=== PATIENT | female | born 1945 | race Caucasian/White ===

== ENCOUNTER 2023-05-29 06:41 | Outpatient (OUT) | payer MEDICARE, SELFPAY ==
[2023-05-29 06:59] LABS: Bilirubin Urine NEGATIVE (NEGATIVE); Blood Urine NEGATIVE (NEGATIVE); Clarity Urine CLEAR (CLEAR); Color Urine LT. YELLOW (YELLOW); Glucose Urine UA NEGATIVE (NEGATIVE); Ketones Urine NEGATIVE (NEGATIVE); Leukocyte Esterase Urine NEGATIVE (NEGATIVE); Nitrite Urine NEGATIVE (NEGATIVE); Protein Urine NEGATIVE (NEG/TRACE); Specific Gravity Urine <=1.005 (1.005-1.025); Urobilinogen Urine 0.2 EU/dL (0.2-1.0)
[2023-05-29 07:01] LABS: Basophils Absolute Auto 0.1 10^3/uL (0.0-0.1); Basophils Percent Auto 0.8 % (0.2-2.0); Eosinophils Absolute Auto 0.2 10^3/uL (0.0-0.7); Hematocrit 39.4 % (36.0-48.0); Hemoglobin 13.2 g/dL (12.0-16.0); Immature Granulocytes Abs Auto 0.01 10^3/uL (0.00-0.03); Immature Granulocytes Pct Auto 0.2 % (0.0-0.5); Lymphocytes Absolute Auto 1.8 10^3/uL (1.2-3.8); Mean Corpuscular HGB Conc 33.5 g/dL (29.9-35.2); Mean Corpuscular Hemoglobin 31.8 pg (26.7-34.0); Mean Corpuscular Volume 94.9 fL (81.0-99.0); Mean Platelet Volume 10.6 fL (9.5-13.5); Monocytes Absolute Auto 0.7 10^3/uL (0.3-0.8); Monocytes Percent Auto 9.8 % (1.7-12.0); Neutrophils Absolute Auto 3.9 10^3/uL (1.4-6.5); Neutrophils Percent Auto 59.2 % (43.0-75.0); Platelet Count 254 10^3/uL (150-450); Red Blood Count 4.15 10^6/uL (4.20-5.40); Red Cell Distribution Width 12.7 % (11.0-15.0); White Blood Count 6.6 10^3/uL (4.0-11.0)
[2023-05-29 07:06] LABS: Bacteria Urine NONE SEEN #/HPF (NONE SEEN); Crystals Seen? None Seen #/HPF (None Seen); Mucus Urine NONE SEEN (NONE SEEN); RBC Urine NONE SEEN #/HPF (0-2); Squamous Epithelial Cell Urine RARE #/LPF (NONE/RARE); WBC Urine NONE SEEN #/HPF (NONE SEEN)
[2023-05-29 07:07] LABS: Cast Seen? NONE SEEN #/LPF (NONE SEEN)
[2023-05-29 07:35] LABS: Alanine Aminotransferase 26 U/L (14-59); Albumin Globulin Ratio 1.1; Albumin Level 3.8 g/dL (3.4-5.0); Alkaline Phosphatase 76 U/L (46-116); Anion Gap 11.3; Aspartate Amino Transferase 23 U/L (15-37); BUN Creatinine Ratio 21.3; Bilirubin Total 1.2 mg/dL (0.2-1.0); Calcium 8.9 mg/dL (8.5-10.1); Carbon Dioxide 26.2 mmol/L (21.0-32.0); Chloride 97 mmol/L (98-107); Chol HDL Ratio 3.1; Cholesterol 197 mg/dL (<=200); Estimated GFR (African America >60 (>=60); Estimated GFR (Non-African Ame >60 (>=60); Globulin 3.6 g/dL; Glucose 92 mg/dL (74-106); HDL Cholesterol 63 mg/dL (40-60); Potassium 3.5 mmol/L (3.5-5.1); Sodium 131 mmol/L (136-145); Total Protein 7.4 g/dL (6.4-8.2); Triglycerides 49 mg/dL (<=150); VLDL CHOLESTEROL 9.8 mg/dL
== END 2023-05-29 06:42 | disposition home or self-care (01) ==
LOC: LAB 06:41
PROVIDERS: PCP Nurse Practitioner; Visit Provider Nurse Practitioner
DX: E78.5 Hyperlipidemia, unspecified (principal); R69 Illness, unspecified; M81.0 Age-related osteoporosis without current pathological fracture; N39.46 Mixed incontinence
CPT/HCPCS: 36415; 80053; 80061; 81001; 82306; 85025

== ENCOUNTER 2023-08-18 10:12 | Emergency (ER) | payer MEDICARE, SELFPAY ==
--- NOTE | 2023-08-18 10:13 | ECG_ITS ---
[facility] Test Date: 2023-08-18 Pat Name: Soni Bhandari Department: Room: - Gender: Female [employer]: : 1945 Requested By: CRUZ ANDERSON Order Number: [id number] Reading MD: YAZMIN SOUSA Measurements Intervals [place] Rate: 77 P: 73 WA: 132 QRS: 86 QRSD: 126 T: 46 QT: 390 QTc: 421 Interpretive Statements 1100 Sinus rhythm 2450 Right bundle branch block 9150 abnormal ECG No previous ECG available for comparison Electronically Signed On 08-18-2023 22:23:58 EST by YAZMIN SOUSA
[2023-08-18 10:18] VITALS: BP 143/78
[2023-08-18 10:20] VITALS: BP 145/78; PULSE 75; RESP 18; TEMP 36.7; O2SAT 99; BMI 20.5
[2023-08-18 10:30] VITALS: PULSE 77; RESP 21; O2SAT 98
--- NOTE | 2023-08-18 10:39 | XR_ITS ---
The [address] [address] Patient Name: SANDY GIBBS MRN: [id number] date: 1945 Sex: F Assigned Patient Location: ED.MAIN Current Patient Location: ED.MAIN Accession/Order Number: [id number] Exam Date: 08/18/2023 10:35 Report Date: 08/18/2023 10:53 At the request of: ELYSE LAO Procedure: XR chest 1V EXAM: XR chest 1V HISTORY: CP COMPARISON: None. TECHNIQUE: ap port FINDINGS: LUNGS: No significant pulmonary parenchymal abnormalities. VASCULATURE: No increased pulmonary vasculature. PLEURA: No pneumothorax, effusion, or pleural thickening. CARDIAC: No cardiomegaly or cardiac silhouette abnormality. MEDIASTINUM: No visible mass or adenopathy. aortic calcifications BONES: No fracture or visible bone lesion. OTHER: Negative. XR/XR chest 1V IMPRESSION: No acute cardiopulmonary process Electronically authenticated by: SHY FAJARDO Date: 08/18/2023 10:53
[2023-08-18 10:43] LABS: Basophils Percent Auto 0.6 % (0.2-2.0); Eosinophils Absolute Auto 0.1 10^3/uL (0.0-0.7); Eosinophils Percent Auto 0.7 % (0.9-7.0); Hematocrit 41.6 % (36.0-48.0); Hemoglobin 13.8 g/dL (12.0-16.0); Immature Granulocytes Abs Auto 0.01 10^3/uL (0.00-0.03); Immature Granulocytes Pct Auto 0.1 % (0.0-0.5); Lymphocytes Absolute Auto 1.7 10^3/uL (1.2-3.8); Lymphocytes Percent Auto 24.4 % (20.5-60.0); Mean Corpuscular HGB Conc 33.2 g/dL (29.9-35.2); Mean Corpuscular Hemoglobin 31.7 pg (26.7-34.0); Mean Corpuscular Volume 95.4 fL (81.0-99.0); Mean Platelet Volume 10.1 fL (9.5-13.5); Monocytes Absolute Auto 1.1 10^3/uL (0.3-0.8); Monocytes Percent Auto 16.4 % (1.7-12.0); Neutrophils Absolute Auto 3.9 10^3/uL (1.4-6.5); Neutrophils Percent Auto 57.8 % (43.0-75.0); Platelet Count 248 10^3/uL (150-450); Red Blood Count 4.36 10^6/uL (4.20-5.40); Red Cell Distribution Width 12.8 % (11.0-15.0); White Blood Count 6.8 10^3/uL (4.0-11.0)
--- NOTE | 2023-08-18 10:44 | ED.CHESTPAI1 ---
HPI - Chest Pain General Chief Complaint: Chest Pain Stated Complaint: CHEST PRESSURE Time Seen by Provider: 08/18/23 10:13 Source: patient Mode of arrival: walk-in Limitations: no limitations History of Present Illness HPI narrative: 78-year-old female presents for chest pressure. She's had it continuously for about forty-eight hours. It waxes and wanes. No fever cough shortness breath or any trauma or unusual activity. She was seen by her PCP today sent her here to be evaluated. It doesn't seem to radiate. Related Data Home Medications Medication Instructions Recorded Confirmed atorvastatin 40 mg tablet 40 mg PO Q24H 08/18/23 08/18/23 oxybutynin chloride 15 mg 15 mg PO Q24H 08/18/23 08/18/23 tablet,extended release 24 hr Allergies Allergy/AdvReac Type Severity Reaction Status Date / Time No Known Drug Allergies Allergy Verified 08/18/23 10:19 Review of Systems ROS Narrative A ten point review of systems is negative except as noted above. Exam Narrative Exam Narrative: Nurses note and vital signs reviewed and patient is not hypoxic. General: The patient appears well and in no apparent distress. Patient is resting comfortably on cart. Skin: Warm, dry, no pallor noted. There is no rash noted. Head: Normocephalic, atraumatic Eye: Normal conjunctiva, no drainage Ears, Nose, Mouth, and Throat: oral mucosa is moist. Nares patent. Cardiovascular: Regular Rate and Rhythm Respiratory: Patient is in no distress, no accessory muscle use, lungs are clear to auscultation, no wheezing, rales or rhonchi Back: non-tender GI: soft and nontender Musculoskeletal: The patient has no evidence of calf tenderness, no pitting edema, symmetrical pulses noted bilaterally Neurological: A&O, normal speech Psychiatric: Cooperative Constitutional Vital Signs, click to edit/add: Last Vital Signs Temp 98.0 F 08/18/23 10:20 Pulse 75 08/18/23 11:02 Resp 19 08/18/23 11:02 BP 113/65 08/18/23 11:02 Pulse Ox 98 08/18/23 10:30 Course Vital Signs Vital signs: Vital Signs Blood Pressure 143/78 H 08/18/23 10:18 Temperature 98.0 F 08/18/23 10:20 Pulse Rate 75 08/18/23 11:02 Respiratory Rate 19 01/09/24 11:02 Blood Pressure 113/65 08/18/23 11:02 Pulse Oximetry 98 08/18/23 10:30 MDM - Chest Pain MDM Narrative Medical decision making narrative: The patient's workup is negative here. No evidence of acute coronary syndrome. I've no clinical suspicion of pulmonary embolism. She'll be released and will follow-up with her PCP. Treatment diagnosis and follow-up were discussed with the patient. Differential Diagnosis Differential diagnosis: Likely pneumothorax, stable angina, unstable angina pectoris, atypical chest pain, st elevation myocardial infarction, costochondritis and chest pain Lab Data Attestation: I reviewed the patient's lab results. Labs: Lab Results 08/18/23 Range/Units 10:27 WBC 6.8 (4.0-11.0) 10^3/uL RBC 4.36 (4.20-5.40) 10^6/uL Hgb 13.8 (12.0-16.0) g/dL Hct 41.6 (36.0-48.0) % MCV 95.4 (81.0-99.0) fL MCH 31.7 (26.7-34.0) pg MCHC 33.2 (29.9-35.2) g/dL RDW 12.8 (11.0-15.0) % Plt Count 248 (150-450) 10^3/uL MPV 10.1 (9.5-13.5) fL Neut % (Auto) 57.8 (43.0-75.0) % Lymph % (Auto) 24.4 (20.5-60.0) % Boundary % (Auto) 16.4 H (1.7-12.0) % Eos % (Auto) 0.7 L (0.9-7.0) % Baso % (Auto) 0.6 (0.2-2.0) % Neut # (Auto) 3.9 (1.4-6.5) 10^3/uL Lymph # (Auto) 1.7 (1.2-3.8) 10^3/uL Boundary # (Auto) 1.1 H (0.3-0.8) 10^3/uL Eos # (Auto) 0.1 (0.0-0.7) 10^3/uL Baso # (Auto) 0.0 (0.0-0.1) 10^3/uL Abs Immat Gran (auto) 0.01 (0.00-0.03) 10^3/uL Imm/Tot Granulo (auto) 0.1 (0.0-0.5) % Sodium 134 L (136-145) mmol/L Potassium 3.4 L (3.5-5.1) mmol/L Chloride 101 (98-107) mmol/L Carbon Dioxide 27.4 (21.0-32.0) mmol/L Anion Gap 9.0 BUN 11.0 (7.0-18.0) mg/dL Creatinine 0.75 (0.55-1.02) mg/dL Est GFR ( Amer) >60 (>=60) Est GFR (Non-Af Amer) >60 (>=60) BUN/Creatinine Ratio 14.7 Glucose 99 (74-106) mg/dL Calcium 9.5 (8.5-10.1) mg/dL Troponin I High Sens 5.9 (4.0-51.3) pg/mL Imaging Data Chest x-ray: Radiologist's impression: Procedure: XR chest 1V EXAM: XR chest 1V HISTORY: CP COMPARISON: None. TECHNIQUE: ap port FINDINGS: LUNGS: No significant pulmonary parenchymal abnormalities. VASCULATURE: No increased pulmonary vasculature. PLEURA: No pneumothorax, effusion, or pleural thickening. CARDIAC: No cardiomegaly or cardiac silhouette abnormality. MEDIASTINUM: No visible mass or adenopathy. aortic calcifications BONES: No fracture or visible bone lesion. OTHER: Negative. IMPRESSION: No acute cardiopulmonary process Electronically authenticated by: SHY FAJARDO Date: 08/18/2023 10:53 ECG Data Attestation: I personally reviewed and interpreted this ECG as follows: (EKG on my interpretation shows sinus rhythm with right bundle branch block) Heart Score History: Moderately Suspicious ECG: Normal Age: >65 years Risk Factors: 1 or 2 Risk Factors Troponin: <Normal Limit Total Heart Score Recommendations & Risks:: 4 Discharge Plan Discharge Chief Complaint: Chest Pain Clinical Impression: Chest pain Patient Disposition: Home, Self-Care Time of Disposition Decision: 11:20 Condition: Good Mode of Transportation: Private Vehicle Prescriptions / Home Meds: No Action atorvastatin 40 mg tablet 40 mg PO Q24H oxybutynin chloride 15 mg tablet extended release 24hr 15 mg PO Q24H Instructions: Chest Pain (ED) Stand Alone Forms: Portal Instructions Referrals: Karol Gurrola NP [Primary Care Provider] - 1 week
--- OUTSIDE RECORDS SUMMARY | 2023-08-18 10:50 | XMS_ITS | CCD ---
Author Name Unknown Address [address] [place] [address] Organization [facility] Care Team Providers Care Geospatial Engineer Name Role Phone JAYLIN Rahman Attending Provider [phone] Lorraine Rahman Attending Unavailable Lorraine Rahman Admitting Unavailable Lorraine Rahman Unavailable AICHHOLZ, OVERHEAD LINE WORKER CRUZ Attending Unavailable AICHHOLZ, OVERHEAD LINE WORKER CRUZ Consulting Unavailable AICHHOLZ, OVERHEAD LINE WORKER CRUZ Primary Care Unavailable AICHHOLZ, OVERHEAD LINE WORKER CRUZ Admitting Unavailable TIMMIS, DR GARCIA Admitting Unavailable TIMMIS, DR GARCIA Attending Unavailable TIMMIS, DR GARCIA Consulting Unavailable AICHHOLZ, OVERHEAD LINE WORKER CRUZ Primary Care Unavailable ZIEBER, DR CHUY House Consulting Unavailable AICHHOLZ, OVERHEAD LINE WORKER CRUZ Attending Unavailable AICHHOLZ, OVERHEAD LINE WORKER CRUZ Consulting Unavailable AICHHOLZ, OVERHEAD LINE WORKER CRUZ Primary Care Unavailable AICHHOLZ, OVERHEAD LINE WORKER CRUZ Admitting Unavailable ZIEBER, DR CHUY House Consulting Unavailable SHY DOMINGUEZ Consulting Unavailable NADERER, DR JEVON Solomon Attending Unavailable NADERER, DR JEVON Solomon Consulting Unavailable NADERER, DR JEVON Solomon Admitting Unavailable AICHHOLZ, OVERHEAD LINE WORKER CRUZ Primary Care Unavailable Antionette Ward Unavailable Tameka Velasco Unavailable Medications Current Medications Medication Drug Class(es) Dates Sig (Normalized) Sig (Original) amoxicillin 875 mg / clavulanate 125 mg oral tablet (2 sources) Penicillin-class Antibacterial Start: 01-20-2023 take 1 tablet by mouth every twelve hours Amoxicillin-Pot Clavulanate 875-125 MG 1 tablet Orally every 12 hrs for 7 days Jan, Active Start: 10-25-2022 take 1 tablet by kelli th every twelve hours Amoxicillin-Pot Clavulanate 875-125 MG 1 tablet Orally every 12 hrs for 10 day(s) Oct, Active Aspir-81 (4 sources) Aspir-81 Active atorvastatin 40 mg oral tablet (4 sources) HMG-CoA Reductase Inhibitor take 1 tablet by mouth every twenty-four hours Atorvastatin Calcium 40 MG 1 tablet Orally Once a day Active Calcium (4 sources) Phosphate Binder, Calcium Calcium + D Active fluticasone propionate 0.05 mg/actuat metered dose nasal spray (1 source) Corticosteroid Start: 10-26-19 take 2 spray(s) nasal route once daily Fluticasone Propionate 50 MCG/ACT 2 sprays Nasally Once a day for 14 day(s) Oct, Active oxybutynin (4 sources) Cholinergic Muscarinic Antagonist Oxybutynin Active Vitamin D (4 sources) Vitamin D Active Completed/Discontinued Medications Medication Drug Class(es) Dates Sig (Normalized) Sig (Original) dextromethorphan hydrobromide 1.5 mg/ml / pyrilamine maleate 1.5 mg/ml oral solution (2 sources) Uncompetitive X-dtutxf-K-aspartat e Receptor Antagonist, Sigma-1 Agonist Start: 01-11-2023 take 10 mL by mouth every eight hours Dora DM 7.5-7.5 MG/5ML 10 mL Orally every 8 hours for 5 days Jan, Not-Taking predniSONE 20 mg oral tablet (2 sources) Start: 01-11-2023 take 1 tablet by mouth every twelve hours prednisone 20 MG 1 tablet Orally BID for 5 Jan, Not-Taking Problems Active Problems Problem Classification Problem Date Documented Da te Episodic/Chronic Disorders of lipid metabolism (4 sources) Hyperlipidemia, unspecified; Translations: [HYPERLIPIDEMIA UNSPECIFIED] Onset: 05-06-2022 Chronic Osteoporosis (5 sources) Age-related osteoporosis without current pathological fracture; Translations: [AGE-REL OSTEOPOR W/O CURR PATH FX] Onset: 10-01-2022 Chronic Other non-traumatic joint disorders (4 sources) Acute ankle pain; Translations: [Pain in left ankle and joints of left foot] Episodic Other non-traumatic joint disorders (1 source) Pain in left ankle and joints of left foot Episodic Other screening for suspected conditions (not mental disorders or infectious disease) (4 sources) Encounter for screening mammogram for malignant neoplasm of breast; Translations: [ENC SCR MAMMO MALIG NEOPLASM BREAST] Onset: 09-26-2022 Episodic Other upper respiratory disease (1 source) Nasal congestion Episodic Other upper respiratory infections (3 sources) Acute sinusitis, unspecified; Translations: [Acute upper respiratory infection, unspecified] Episodic Unclassified (1 source) Pain in left ankle and joints of left foot; Translations: [Pain in left ankle and joints of left foot] Onset: 07-30-2022 Past or Other Problems Problem Classification Problem Date Documented Da te Episodic/Chronic Other nervous system disorders (4 sources) Anosmia; Translations: [ANOSMIA] Onset: 07-30-2022 Episodic Results Test Name Value Interpretation Reference Range Facility CALCIUMon 11-28-2022 Calcium [Mass/Vol] 9.2 mg/dL Normal 8.5-10.1 [facility] Comment on above: Performed By: #### C A, CREA #### [facility] [address] [address] [address] Kalpesh Coon CREATININEon 11-28-2022 Creatinine [Mass/Vol] 0.78 mg/dL Normal 0.55-1.02 [facility] Comment on above: Performed By: #### C A, CREA #### [facility] [address] [address] [address] Kalpesh Coon EGFR-AF BHUTANESE >60 Normal >=60 [facility] Comment on above: Performed By: #### C A, CREA #### [facility] [address] [address] [address] Kalpesh Coon EGFR-NON AF BHUTANESE >60 Normal >=60 [facility] Comment on above: Performed By: #### C A, CREA #### [facility] [address] [address] [address] Kalpesh Coon COVID/FLU RT-PCRon 3 SARS-CoV-2 (COVID-19) RNA RENETTA+probe Ql (Unsp spec) Negative [facility] Other COVID/FLU RT-PCR Negative [employer] Other MG MAMM SCREEN 3D ASAF CADon 09-26-2022 MG MAMM SCREEN 3D ASAF CAD Patient: SANDY BHANDARI Exam Date: 09/26/2022 : 1945 Gender:F Ordering : SUNITA ANDERSON OVERHEAD LINE WORKER Admission #: [id number] Family : Order #: [id number] CLICK HERE TO VIEW EXAM RADIOLOGY REPORT PROCEDURE: MAMMOGRAM SCREENING 3D BILATERAL CAD COMPARISON: MG MAMM SCREEN 3D ASAF CAD, 09/19/2021. MG MAMM SCREEN ASAF W CAD, 09/11/2020. MG MAMM SCREEN ASAF W CAD, 07/05/2019. MG MAMM ASAF SCRN W CAD DIG, 01/13/2012. INDICATIONS: Screening mammography Calculator Name NCI Breast Cancer Risk Assessment Tool 5 Year Breast Cancer Risk 1.90% Lifetime Breast Cancer Risk 4.00% Personal Breast Cancer No Personal Ovarian Cancer No Treatments None Family Cancers None LOCATION: [facility] BREAST COMPOSITION: Heterogeneously dense,which may obscure small masses. FINDINGS: DIAGNOSTIC CATEGORY 2--BENIGN FINDING: RIGHT BREAST: No significant suspicious finding. No significant change has occurred. LEFT BREAST: No significant suspicious finding. Scattered benign-appearing nodules are present. Scattered benign-appearing calcifications are present. No significant change has occurred. RECOMMENDATIONS: ROUTINE MAMMOGRAM AND CLINICAL EVALUATION IN 12 MONTHS. PLEASE NOTE: A NORMAL MAMMOGRAM DOES NOT EXCLUDE THE POSSIBILITY OF BREAST CANCER. A CLINICALLY SUSPICIOUS PALPABLE LUMP SHOULD BE BIOPSIED. Dictated by: Chuy Jefferson M.D. on 09/26/2022 at 11:51 Approved by: Chuy Jefferson M.D. on 09/26/2022 at 11:57 Normal [facility] XR DEXA BONE DENSITYon 09-26 XR DEXA BONE DENSITY DEXA Bone Density Study CLINICAL: Evaluate bone mineral density. Postmenopausal COMPARISON: 09/17/2020 FINDINGS: The bone density study was assessed by dual-energy x-ray absorptiometry with the ED scanner. The test results are expressed in T-Score, which is used for diagnosis for osteoporosis, and reflects the standard deviations from the mean peak bone mineral density in young adults. Additional information regarding the Z-Score reflects the standard deviations from the mean peak bone mineral density for age- and gender- matched subject. Lumbar Spine (L1-L4): BMD (gm/cm2): 0.988 T-Score: 1.6 Left Hip: BMD (gm/cm2): O.782 T-Score: -1.8 Left Femoral Neck: BMD (gm/cm2): O.740 T-Score: -2.1 Right Hip: BMD (gm/cm2): 0.756 T-Score: -2.0 Right Femoral Neck: BMD (gm/cm2): 0.676 T-Score: -2.6 IMPRESSION: 1. Lumbar spine indicates osteopenia. This has worsened since previous exam. 2. Left hip indicates osteopenia. This has not changed appreciably from the previous exam. 3. Right femoral neck indicates osteoporosis. This is unchanged. Total T score for the right hip indicates osteopenia. This has worsened since previous exam. Today's T score is -2.0 compared with a previous T score -1.5. REFERENCE: In children, postmenopausal women and males under age 50 not at increased risk for fractures, only Z-Scores, not T-Scores, are used to indicate fracture risk. A Z-Score above -2.0 is defined as within the expected range for age and Z-Score at or less than -2.0 is below the expected range for age. A Z-Score below the expected range for age in a patient with recent fractures and/or chronic corticosteroid treatment is consistent with a diagnosis of osteoporosis. In postmenopausal women and males over 50, comparison of the measured bone mineral density with the average value in young normal subjects (the T-Score) has been found to be useful in assessing fracture risk. Fracture risk approximately doubles for each 1.0 standard deviation (SD) that the individual's hip or spine bone mineral density is below the average value of young normal subjects. The World health Organization (WHO) has provided the following definitions: 1. Normal: T-Score within one standard deviation of young adult mean value (T-Score greater than -1.0). 2. Osteopenia (low bone mass): T-Score more than one standard deviation below the young adult mean but less than 2.5 standard deviations below the young adult mean (T-Score between -1.0 and -2.5). 3. Osteoporosis: T-Score more than 2.5 standard deviations below the young adult mean (T-Score less than -2.5). 4. Sever Osteoporosis (established osteoporosis): T-Score more than 2.5 standard deviations below young adult and one or more fragility fracture (T-Score less than -2.5 + fragility fractures). 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 Images were performed without and with Dotarem contrast. FINDINGS: CEREBRUM: Slightly prominent pituitary gland, 9 x 8 x 7 mm. This No edema, hemorrhage, mass, acute infarction, or inappropriate atrophy. CEREBELLUM: No edema, hemorrhage, mass, acute infarction, or inappropriate atrophy. BRAINSTEM: No edema, hemorrhage, mass, acute infarction, or inappropriate atrophy. CSF SPACES: Ventricles, cisterns, and sulci are appropriate for age. No hydrocephalus, subarachnoid hemorrhage, or mass. SKULL: No mass or other significant visible lesion. SINUSES: Limited views demonstrate no significant mucosal thickening or fluid. ORBITS: Limited views are unremarkable. OTHER: No abnormal meningeal or parenchymal enhancement. IMPRESSION: 1. Slightly prominent pituitary gland; otherwise normal appearance of the brain for patient's age. Electronically authenticated by: CHUY JEFFERSON Date: 2022-07-31 07:22 Normal [facility] CREATININEon 07-30-2022 Creatinine [Mass/Vol] 0.67 mg/dL Normal 0.55-1.02 [facility] Comment on above: Performed By: #### C RONDA #### [facility] [address] [address] [address] Kalpesh Coon EGFR-AF BHUTANESE >60 Normal >=60 [facility] Comment on above: Performed By: #### C RONDA #### [facility] [address] [address] [address] Kalpesh Coon EGFR-NON AF BHUTANESE >60 Normal >=60 [facility] Comment on above: Performed By: #### C RONDA #### [facility] [address] [address] [address] Kalpesh Coon XR ankle LT min 3V*on 2021 XR ankle LT min 3V* [facility] [employer] Other XR ankle LT min 3V* [facility] Other XR ankle LT min 3V* [facility] Other XR ankle LT min 3V* [place] [address] [facility] Other XR ankle LT min 3V* XRay Report [facility] Other XR ankle LT min 3V* Signed [facility] Other XR ankle LT min 3V* Patient: Sandy Bhandari MR#: [id number] [facility] Other XR ankle LT min 3V* 90 [facility] Other XR ankle LT min 3V* : 1945 Acct:[id number] [facility] Other XR ankle LT min 3V* Age/Sex: 77 / F ADM Date: 07/30/22 [facility] Other XR ankle LT min 3V* Loc: XDUCLY Room: Type: REG CLI [facility] Other XR ankle LT min 3V* Attending Dr: Lorraine MOSQUEDA [facility] Other XR ankle LT min 3V* Copies to: JAYLIN Kennedy [facility] Other XR ankle LT min 3V* Ordering Provider: JAYLIN Kennedy [facility] Other XR ankle LT min 3V* Date of Service: 07/30/22 [facility] Other XR ankle LT min 3V* XR/XR ankle LT min 3V*: Acute left ankle pain [facility] Other XR ankle LT min 3V* 3views leftankle [facility] Other XR ankle LT min 3V* COMPARISON:None [facility] Other XR ankle LT min 3V* HISTORY: Medial left ankle pain for one week. No injury [facility] Other XR ankle LT min 3V* No fracture, dislocation or focal soft tissue abnormality seen. No significant degeneration. [facility] Other XR ankle LT min 3V* XR/XR ankle LT min 3V* [facility] Other XR ankle LT min 3V* IMPRESSION: Unremarkable exam [facility] Other XR ankle LT min 3V* Impression dictated by: Eduardo Castaneda M.D.07/30/2022 11:50 AM [facility] Other XR ankle LT min 3V* Dictation Location: [place] [address] [facility] Other XR ankle LT min 3V* Transcribed By: [facility] 07/30/22 1150 [facility] Other XR ankle LT min 3V* Dictated By: Eduardo Castaneda DO 07/30/22 1149 [facility] Other XR ankle LT min 3V* Signed By: [facility] Other XR ankle LT min 3V* 07/30/22 1150 [facility] Other XR ankle LT min 3V* [facility] [place] [address] [place] [address] XRay Report Signed Patient: Sandy Bhandari MR#: [id number] 90 : 1945 Acct:[id number] Age/Sex: 77 / F ADM Date: 07/30/22 Loc: XDUCLY Room: Type: [facility] Attending Dr: Lorraine MOSQUEDA Copies to: JAYLIN Kennedy Ordering Provider: JAYLIN Kenndey Date of Service: 07/30/22 XR/XR ankle LT min 3V*: Acute left ankle pain 3views leftankle COMPARISON:None HISTORY: Medial left ankle pain for one week. No injury No fracture, dislocation or focal soft tissue abnormality seen. No significant degeneration. XR/XR ankle LT min 3V* IMPRESSION: Unremarkable exam Impression dictated by: Eduardo Castaneda M.D.07/30/2022 11:50 AM Dictation Location: [place] [address] Transcribed By: [facility] 07/30/22 1150 Dictated By: Eduardo Castaneda DO 07/30/22 1149 Signed By: 07/30/[address] [facility] CBC AUTO DIFFon 05-06-2022 BASO # 0.0 103/ul Normal 0.0-0.1 [facility] Comment on above: Performed By: #### C BC #### [facility] [address] [address] [address] Kalpesh Coon Basophils/100 WBC (Bld) 0.7 % Normal 0.2-2.0 [facility] Comment on above: Performed By: #### C BC #### [facility] [address] [address] [address] Kalpesh Coon EO # 0.1 103/ul Normal 0.0-0.7 [facility] Comment on above: Performed By: #### C BC #### [facility] [address] [address] [address] Kalpesh Coon Eosinophils/100 WBC (Bld) 2.3 % Normal 0.9-7.0 [facility] Comment on above: Performed By: #### C BC #### [facility] [address] [address] [address] Kalpesh Coon Erythrocyte distribution width (RBC) [Ratio] 13.7 % Normal 11.0-15.0 [facility] Comment on above: Performed By: #### C BC #### [facility] [address] [address] [address] Kalpesh Coon Hematocrit (Bld) [Volume fraction] 41.9 % Normal 36.0-48.0 [facility] Comment on above: Performed By: #### C BC #### [facility] [address] [address] [address] Kalpesh Coon Hemoglobin (Bld) [Mass/Vol] 13.8 g/dL Normal 12.0-16.0 [facility] Comment on above: Performed By: #### C BC #### [facility] [address] [address] [address] Kalpesh Coon IG # 0.01 10e3/ul Normal 0.00-0.03 [facility] Comment on above: Performed By: #### C BC #### [facility] [address] [place] [address] Dr. Kalpesh Coon IG % 0.2 % Normal 0.0-0.5 [facility] Comment on above: Performed By: #### C BC #### [facility] [address] [place] [address] Dr. Kalpesh Coon LYMPH # 1.5 103/ul Normal 1.2-3.8 [facility] Comment on above: Performed By: #### C BC #### [facility] [address] [place] [address] Dr. Kalpesh Coon Lymphocytes/100 WBC (Bld) 25.6 % Normal 20.5-60.0 [facility] Comment on above: Performed By: #### C BC #### [facility] [address] [place] [address] Dr. Kalpesh Coon MANUAL DIFF REQ NO Normal [facility] Comment on above: Performed By: #### C BC #### [facility] [address] [place] [address] Dr. Kalpesh Coon MCH (RBC) [Entitic mass] 31.3 pg Normal 26.7-34.0 [facility] Comment on above: Performed By: #### C BC #### [facility] [address] [place] [address] Dr. Kalpesh Coon MCHC (RBC) [Mass/Vol] 32.9 g/dL Normal 29.9-35.2 [facility] Comment on above: Performed By: #### C BC #### [facility] [address] [place] [address] Dr. Kalpesh Coon MCV (RBC) [Entitic vol] 95.0 fL Normal 81.0-99.0 [facility] Comment on above: Performed By: #### C BC #### [facility] [address] [place] [address] Dr. Kalpesh Coon MONO # 0.7 103/ul Normal 0.3-0.8 [facility] Comment on above: Performed By: #### C BC #### [facility] [address] [place] [address] Dr. Kalpesh Coon Monocytes/100 WBC (Bld) 10.8 % Normal 1.7-12.0 [facility] Comment on above: Performed By: #### C BC #### [facility] [address] [place] [address] Dr. Kalpesh Coon NEUT # 3.6 103/ul Normal 1.4-6.5 [facility] Comment on above: Performed By: #### C BC #### [facility] [address] [place] [address] Dr. Kalpesh Coon Neutrophils/100 WBC (Bld) 60.4 % Normal 43.0-75.0 [facility] Comment on above: Performed By: #### C BC #### [facility] [address] [place] [address] Dr. Kalpesh Coon Platelet mean volume (Bld) [Entitic vol] 11.8 fL Normal 9.5-13.5 [facility] Comment on above: Performed By: #### C BC #### [facility] [address] [place] [address] Dr. Kalpesh Coon PLT 181 103/ul Normal 150-450 [facility] Comment on above: Performed By: #### C BC #### [facility] [address] [place] [address] Dr. Kalpesh Coon RBC 4.41 106/ul Normal 4.20-5.40 [facility] Comment on above: Performed By: #### C BC #### [facility] [address] [address] [address] Kalpesh Coon WBC 6.0 103/ul Normal 4.0-11.0 [facility] Comment on above: Performed By: #### C BC #### [facility] [address] [address] [address] Kalpesh Coon LIPID PROFILEon 05-06-2022 CHOL-HDL RATIO NORM SEE BELOW Normal [facility] Comment on above: Result Comment: 3.3 - 4.4 LOW RISK 4.4 - 7.1 AVERAGE RISK 7.1 - 11.0 MODERATE RISK >11.0 HIGH RISK Performed By: #### L IPID, CMP #### [facility] [address] [address] [address] Kalpesh Coon Cholesterol [Mass/Vol] 214 mg/dL Critically high <=200 [facility] Comment on above: Performed By: #### L IPID, CMP #### [facility] [address] [address] [address] Kalpesh Coon Cholesterol in HDL [Mass/Vol] 63 mg/dL Critically high 40-60 [facility] Comment on above: Performed By: #### L IPID, CMP #### [facility] [address] [address] [address] Kaplesh Coon Cholesterol in LDL [Mass/Vol] 131.4 mg/dL Normal [facility] Comment on above: Performed By: #### L IPID, CMP #### [facility] [address] [address] [address] Kalpesh Coon Cholesterol.total/ Cholesterol in HDL [Mass ratio] 3.4 {ratio} Normal [facility] Comment on above: Performed By: #### L IPID, CMP #### [facility] [address] [address] [address] Kalpesh Coon HDL NORMAL > or = 60 mg/dl - LOW CARDIOVASCULAR RISK <40 mg/dl - HIGH CARDIOVASCULAR RISK Normal [facility] Comment on above: Performed By: #### L IPID, CMP #### [facility] [address] [address] [address] Kalpesh Coon LDL CALC NORMAL SEE BELOW Normal [facility] Comment on above: Result Comment: <100 mg/dl OPTIMAL 100 - 129 mg/dl NEAR OR ABOVE OPTIMAL 130 - 159 mg/dl BORDERLINE HIGH 160 - 189 mg/dl HIGH >190 mg/dl VERY HIGH Performed By: #### L IPID, CMP #### [facility] [address] [place] [address] Dr. Kalpesh Coon Triglyceride [Mass/Vol] 98 mg/dL Normal <=150 [facility] Comment on above: Performed By: #### L IPID, CMP #### [facility] [address] [place] [address] Dr. Kalpesh Coon VLDL CALC 19.6 mg/dL Normal [facility] Comment on above: Performed By: #### L IPID, CMP #### [facility] [address] [place] [address] Dr. Kalpesh Coon PROF 14(COMP METB)on 022 Albumin [Mass/Vol] 4.0 g/dL Normal 3.4-5.0 [facility] Comment on above: Performed By: #### L IPID, CMP #### [facility] [address] [place] [address] Dr. Kalpesh Coon Albumin/Globulin [Mass ratio] 1.2 {ratio} Normal [facility] Comment on above: Performed By: #### L IPID, CMP #### [facility] [address] [place] [address] Dr. Kalpesh Coon ALP [Catalytic activity/Vol] 63 U/L Normal 46-116 [facility] Comment on above: Performed By: #### L IPID, CMP #### [facility] [address] [place] [address] Dr. Kalpesh Coon ALT [Catalytic activity/Vol] 27 U/L Normal 14-59 [facility] Comment on above: Performed By: #### L IPID, CMP #### [facility] [address] [place] [address] Dr. Kalpesh Coon Anion gap [Moles/Vol] 14.4 mmol/L Normal [facility] Comment on above: Performed By: #### L IPID, CMP #### [facility] [address] [address] [address] Kalpesh Coon AST [Catalytic activity/Vol] 25 U/L Normal 15-37 [facility] Comment on above: Performed By: #### L IPID, CMP #### [facility] [address] [address] [address] Kalpesh Coon Bilirubin [Mass/Vol] 1.3 mg/dL Critically high 0.2-1.0 [facility] Comment on above: Performed By: #### L IPID, CMP #### [facility] [address] [address] [address] Kalpesh Coon Calcium [Mass/Vol] 9.2 mg/dL Normal 8.5-10.1 [facility] Comment on above: Performed By: #### L IPID, CMP #### [facility] [address] [place] [address] Dr. Kalpesh Coon Chloride [Moles/Vol] 101 mmol/L Normal 98-107 [facility] Comment on above: Performed By: #### L IPID, CMP #### [facility] [address] [place] [address] Dr. Kalpesh Coon CO2 [Moles/Vol] 23.8 mmol/L Normal 21.0-32.0 [facility] Comment on above: Performed By: #### L IPID, CMP #### [facility] [address] [place] [address] Dr. Kalpesh Coon Creatinine [Mass/Vol] 0.75 mg/dL Normal 0.55-1.02 [facility] Comment on above: Performed By: #### L IPID, CMP #### [facility] [facility] [address] [place] [address] Dr. Kalpesh Coon EGFR-AF BHUTANESE >60 Normal >=60 [facility] Comment on above: Performed By: #### L IPID, CMP #### [facility] [address] [place] [address] Dr. Kalpesh Coon EGFR-NON AF BHUTANESE >60 Normal >=60 [facility] Comment on above: Performed By: #### L IPID, CMP #### [facility] [address] [address] [address] Kalpesh Coon Globulin (S) [Mass/Vol] 3.3 g/dL Normal [facility] Comment on above: Performed By: #### L IPID, CMP #### [facility] [address] [place] [address] Dr. Kalpesh Coon Glucose [Mass/Vol] 94 mg/dL Normal 74-106 [facility] Comment on above: Performed By: #### L IPID, CMP #### [facility] [address] [place] [address] Dr. Kalpesh Coon Potassium [Moles/Vol] 4.2 mmol/L Normal 3.5-5.1 [facility] Comment on above: Performed By: #### L IPID, CMP #### [facility] [address] [place] [address] Dr. Kalpesh Coon Protein [Mass/Vol] 7.3 g/dL Normal 6.4-8.2 [facility] Comment on above: Performed By: #### L IPID, CMP #### [facility] [address] [place] [address] Dr. Kalpesh Coon Sodium [Moles/Vol] 135 mmol/L Critically low 136-145 [facility] Comment on above: Performed By: #### L IPID, CMP #### [facility] [address] [place] [address] Dr. Kalpesh Coon Urea nitrogen [Mass/Vol] 16.0 mg/dL Normal 7.0-18.0 [facility] Comment on above: Performed By: #### L IPID, CMP #### [facility] [address] [place] [address] Dr. Kalpesh Coon Urea nitrogen/Creatinin e [Mass ratio] 21.3 mg/mg Normal [facility] Comment on above: Performed By: #### L IPID, CMP #### [facility] [address] [place] [address] Dr. Kalpesh Coon VITAMIN D 25 OHon 05-06-2022 VIT D 25-OH 54.3 ng/mL Normal [facility] Comment on above: Performed By: #### V ITAD #### [facility] [address] [address] [address] Kalpesh Coon VIT D RANGES SEE BELOW Normal [facility] Comment on above: Result Comment: <20 ng/mL Vit D deficient 20 - <30 ng/mL Vit D insufficient 30 - 100 ng/mL Vit D sufficient >100 ng/mL Potential Toxicity Performed By: #### V ITAD #### [facility] [address] [address] [address] Kalpesh Coon Vital Signs Date Time Vital Sign Value Performing Clinician Facility 01-20-2023 09:00-0400 Body height 152.4 cm Tameka Velasco Other [facility] 01-20-2023 09:00-0400 Body mass index (BMI) [Ratio] 20.23 kg/m2 Tameka Velasco Other [facility] 01-20-2023 09:00-0400 Body temperature 96.4 [degF] Tameka Velasco Other [facility] 01-20-2023 09:00-0400 Body weight 46.99 kg Tameka Velasco Other [facility] Other 01-20-2023 09:00-0400 Diastolic blood pressure 75 mm[Hg] Tameka Velasco Other [facility] 01-20-2023 09:00-0400 Respiratory rate 18 /min Tameka Velasco Other [facility] 01-20-2023 09:00-0400 SaO2% (BldA) [Mass fraction] 99 % Tameka Velasco Other [facility] 01-20-2023 09:00-0400 Systolic blood pressure 129 mm[Hg] Tameka Velasco Other [facility] 01-11-2023 09:00-0400 Body height 152.4 cm Antionette Ward Other [facility] Other 01-11-2023 09:00-0400 Body mass index (BMI) [Ratio] 20.35 kg/m2 Anitonette Ward Other [facility] Other 01-11-2023 09:00-0400 Body temperature 99.3 [degF] Antionette Ward Other [facility] Other 01-11-2023 09:00-0400 Body weight 47.27 kg Antionette Ward Other [facility] Other 01-11-2023 09:00-0400 Diastolic blood pressure 75 mm[Hg] Antionette Ward Other [facility] Other 01-11-2023 09:00-0400 Respiratory rate 18 /min Antionette Ward Other [facility] Other 01-11-2023 09:00-0400 SaO2% (BldA) [Mass fraction] 99 % Antionette Ward Other [facility] Other 01-11-2023 09:00-0400 Systolic blood pressure 114 mm[Hg] Antionette Ward Other [facility] Other 10-25-2022 10:05-0400 Body height 152.4 cm Lorraine Rahman Other [facility] Other 10-25-2022 10:05-0400 Body mass index (BMI) [Ratio] 20.31 kg/m2 Lorraine Lacey Other [facility] Other 10-25-2022 10:05-0400 Body temperature 99 [degF] Lorraine Lacey Other [facility] Other 10-25-2022 10:05-0400 Body weight 47.17 kg Lorraine Lacey Other [facility] Other 10-25-2022 10:05-0400 Respiratory rate 18 /min Lorraine Lacey Other [facility] Other 10-25-2022 10:05-0400 SaO2% (BldA) [Mass fraction] 97 % Lorraine Lacey Other [facility] Other 07-30-2022 12:05-0500 Body height 152.4 cm Lorraine Lacey Other [facility] Other 07-30-2022 12:05-0500 Body mass index (BMI) [Ratio] 20.31 kg/m2 Lorraine Lacey Other [facility] Other 07-30-2022 12:05-0500 Body weight 47.17 kg Lorraine Lacey Other [facility] Other 07-30-2022 12:05-0500 Diastolic blood pressure 70 mm[Hg] Lorraine Lacey Other [facility] Other 07-30-2022 12:05-0500 Respiratory rate 18 /min Lorraine Lacey Other [facility] Other 07-30-2022 12:05-0500 SaO2% (BldA) [Mass fraction] 100 % Lorraine Rahman Other [facility] Other 07-30-2022 12:05-0500 Systolic blood pressure 122 mm[Hg] Lorraine Rahman Other [facility] Other Encounters Encounter Date Encounter Type Care Provider Facility Start: 01-20-2023 End: 01-20-2023 ambulatory Tameka Velasco Other [facility] Other Start: 01-20-2023 Office outpatient vi sit 15 minutes Tameka Velasco [facility] Start: 01-11-2023 End: 01-11-2023 ambulatory Antionette Ward Other [facility] Other Start: 01-11-2023 Office outpatient vi sit 25 minutes Antionette Ward [facility] Start: 11-27-2022 End: 11-28-[address] JEVON ONTIVEROS Facility:[facility] Start: 10-25-2022 End: 10-25-2022 ambulatory Lorraine Rahman Other [facility] Other Start: 10-25-2022 Office outpatient vi sit 15 minutes Lorraine Lacey [facility] Start: 09-26-2022 End: 09-27-2022 ambulatory SUNITA ANDERSON Facility:[facility] Start: 07-30-2022 Office outpatient ne w 20 minutes Lorraine Lacey [facility] Start: 07-30-2022 End: 07-30-2022 ambulatory Lorraine Lacey Facility:[facility] Start: 07-30-2022 End: 07-30-2022 ambulatory DIE FILER-C Lorraine Lacey Work Phone: [facility] Work Phone: Start: 07-30-2022 End: 07-30-2022 Patient encounter procedure DIE FILER-C Lorraine Lacey Work Phone: [facility] Start: 07-30-2022 End: 07-31-[address] RADHA KIM Facility:[facility] Start: 05-06-2022 End: 05-07-2022 ambulatory SUNITA CRUZ ANDERSON Facility:[facility] Procedures Date Procedure Procedure Detail Performing Clinician Start: 07-30-2022 X-ray of left ankle DIE FILER- C Lorraine Rahman Work Phone: Payers Date Payer Category Payer Self-pay [id number] 1957 Private Health Insurance [id number] 1945 Unknown [id number] 3 1945 Unknown [id number] 3 1945 Unknown [id number] 3 1945 Unknown [id number] 3 Private Health Insurance [employer] PFFS N on Pt [id number] Unknown [id number] 1 Social History Date Type Detail Facility Tobacco smoking status NHIS Unknown if ever smoked [facility] Work Phone: Start: 1945 Sex Assigned At Female F [facility] Sex Assigned At Sex Assigned At Bir th [place] [employer] Other Evaluation note 01-20-2023 Note Date & Type Note Facility 01-20-2023 Evaluation note Encounter Date Diagnosis Assessment Notes Jan, Acute non-recurren t maxillary sinusitis (ICD-10 - J01.00) Given duration of symptoms, will treat for sinusitis with augmentin. Finish entire course. Probiotic supplement encouraged. May use Mucinex DM, Claritin, Flonase for symptomatic treatment. May use Tylenol/ibuprofe n for any pain or fever. Follow-up with PCP if symptoms or not gradually improving over the next 5 to 7 days, sooner if significantly worsening. [facility] Other Evaluation note 01-11-2023 Note Date & Type Note Facility 01-11-2023 Evaluation note Encounter Date Diagnosis Assessment Notes Jan, Viral URI with cough (ICD-10 - J06.9) No testing performed today in office. Advised patient that will treat as viral URI. Advised that viral syndromes last 7 to 10 days, antibiotics are not indicated at this time. We will send in Rx of prednisone and Dora to use as directed. Encouraged supportive care as directed, increase fluids and rest, Tylenol/Motrin as directed, OTC Flonase, cool mist humidifier, throat lozenges. Discussed infection control practices such as good hand washing and mask wearing. If symptoms do not improve after course of medication, will send in Rx of doxycycline to use as directed. Patient to follow up with PCP if symptoms persist or worsen despite treatment. Immediate eval for SOB, difficulty breathing, chest pain, fevers that do not break with antipyretic or any other concerning symptoms as reviewed on patient education handout. Patient verbalizes understanding and is agreeable to treatment plan. Patient left in stable condition. [facility] Other Evaluation note 10-25-2022 Note Date & Type Note Facility 10-25-2022 Evaluation note Encounter Date Diagnosis Assessment Notes Oct, Nasal congestion (ICD-10 - R09.81) Oct, Acute sinusitis, recurrence not specified, unspecified location (ICD-10 - J01.90) Sinusitis home care material was printed Drink plenty fluids, get plenty of rest. Take the amoxicillin with clavulanate as prescribed until gone. Use the fluticasone nasal spray as prescribed until your symptoms improve. Continue home medications as prescribed. You may continue take the Robitussin as needed for cough. Follow-up with your family physician if no improvement in 2 to 3 days. [facility] Other Evaluation note 07-30-2022 Note Date & Type Note Facility 07-30-2022 Evaluation note Encounter Date Diagnosis Assessment Notes Jul, Acute left ankle pain (ICD-10 - M25.572) Ankle sprain home care material was printed Drink plenty fluids, get plenty of rest. Ice and elevate your ankle 2-3 times a day. Take ibuprofen, 400 mg with food 2-3 times a day for pain and swelling. Follow-up with your family physician if no improvement in 5 to 7 days [facility] Other Evaluation note Note Date & Type Note Facility Evaluation note No assessment information availa [facility] Work Phone: History general Narrative - Reported Note Date & Type Note Facility History general Narrative - Reported Type Medical History hyperlipidemia Medical History OAB (overactive bladder) Surgical History hysterectomy Surgical History D&C Surgical History tonsillectomy Hospitalization History See Above [facility] Other Chief Complaint and Reason for Visit Chief Complaint M25.572 Advance Directives Advance Directive Response Recorded Date/ Time Advance Directives No September 11:06am Summary Purpose Family History No Family History Records FoundNo Family History Records Found Additional Source Comments Care Teams (unrecognized sec tion and content) Team Status: Inactive Member Role Status Dates Lorraine aRhman NP-C Attending Provider Active Goals (unrecognized section and content) Goals may be documented in a n alternate sectionNo InformationNo InformationNo InformationNo Information INFORMATION SOURCE (unrecogn ized section and content) DATE CREATED AUTHOR 08/02/2022 [facility] DATE CREATED AUTHOR AUTHOR'S ORGANIZ ATION 11/28/2022 [facility] REASON FOR VISIT (unrecogniz ed section and content) LEFT FOOT PAINSINUS CONGESTI ONsinusSINUS CONGESTION, COUGH; NOT FEELING BETTER (SEEN ON 01/11) FOR RECORDS PERTAINING TO PATIENTS WHO ARE OR HAVE BEEN ENROLLED IN A CHEMICAL DEPENDENCY/SUBSTANCEABUSE PROGRAM, SOME INFORMATION MAY BE OMITTED. This clinical summary was aggregated from multiple sources. Caution should be exercised in using it in the provision of clinical care. This summary normalizes information from multiple sources, and as a consequence, information in this document may materially change the coding, format and clinical context of patient data. In addition, data may be omitted in some cases. CLINICAL DECISIONS SHOULD BE BASED ON THE PRIMARY CLINICAL RECORDS. [facility] [employer] [facility]. provides no warranty or guarantee of the accuracy or completeness of information in this document.
[2023-08-18 11:02] VITALS: BP 113/65; PULSE 75; RESP 19
[2023-08-18 11:09] LABS: BUN Creatinine Ratio 14.7; Calcium 9.5 mg/dL (8.5-10.1); Carbon Dioxide 27.4 mmol/L (21.0-32.0); Chloride 101 mmol/L (98-107); Estimated GFR (African America >60 (>=60); Estimated GFR (Non-African Ame >60 (>=60); Glucose 99 mg/dL (74-106); Potassium 3.4 mmol/L (3.5-5.1); Sodium 134 mmol/L (136-145); Troponin I High Sensitivity 5.9 pg/mL (4.0-51.3)
--- OUTSIDE RECORDS SUMMARY | 2023-08-20 11:18 | XMS_ITS | CCD ---
Author Name Unknown Address [address] [place] [address] Organization [facility] Care Team Providers Care Setter Machine Name Role Phone JAYLIN Rahman Attending Provider [phone] Lorraine Rahman Attending Unavailable Lorraine Rahman Admitting Unavailable Lorraine Rahman Unavailable AICHHOLZ, DIRECTOR OF SECURITIES AND REAL ESTATE CRUZ Attending Unavailable AICHHOLZ, DIRECTOR OF SECURITIES AND REAL ESTATE CRUZ Consulting Unavailable AICHHOLZ, DIRECTOR OF SECURITIES AND REAL ESTATE CRUZ Primary Care Unavailable AICHHOLZ, DIRECTOR OF SECURITIES AND REAL ESTATE CRUZ Admitting Unavailable TIMMIS, DR GARCIA Admitting Unavailable TIMMIS, DR GARCIA Attending Unavailable TIMMIS, DR GARCIA Consulting Unavailable AICHHOLZ, DIRECTOR OF SECURITIES AND REAL ESTATE CRUZ Primary Care Unavailable ZIEBER, DR CHUY House Consulting Unavailable AICHHOLZ, DIRECTOR OF SECURITIES AND REAL ESTATE CRUZ Attending Unavailable AICHHOLZ, DIRECTOR OF SECURITIES AND REAL ESTATE CRUZ Consulting Unavailable AICHHOLZ, DIRECTOR OF SECURITIES AND REAL ESTATE CRUZ Primary Care Unavailable AICHHOLZ, DIRECTOR OF SECURITIES AND REAL ESTATE CRUZ Admitting Unavailable ZIEBER, DR CHUY House Consulting Unavailable SHY DOMINGUEZ Consulting Unavailable NADERER, DR JEVON Solomon Attending Unavailable NADERER, DR JEVON Solomon Consulting Unavailable NADERER, DR JEVON Solomon Admitting Unavailable AICHHOLZ, DIRECTOR OF SECURITIES AND REAL ESTATE CRUZ Primary Care Unavailable Antionette Ward Unavailable Tameka Velasco Unavailable AICHHOLZ, CRUZ Attending Unavailable Medications Current Medications Medication Drug Class(es) [...] 1.5 mg/ml oral solution (2 sources) Uncompetitive M-ridhya-U-aspartat e Receptor Antagonist, Sigma-1 Agonist Start: 01-11-2023 take 10 mL by mouth every eight hours Dale DM 7.5-7.5 MG/5ML 10 mL Orally every [...] 11-28-2022 Calcium [Mass/Vol] 9.2 mg/dL Normal 8.5-10.1 [facility] Comment on above: Performed By: #### C A, CREA #### [facility] [address] [place] [address] Dr. Kalpesh Coon CREATININEon 11-28-2022 Creatinine [Mass/Vol] 0.78 mg/dL Normal 0.55-1.02 [facility] Comment on above: Performed By: #### C A, CREA #### [facility] [address] [address] [address] Kalpesh Coon EGFR-AF JORDANIAN >60 Normal >=60 [facility] Comment on above: Performed By: #### C A, CREA #### [facility] [address] [place] [address] Dr. Kalpesh Coon EGFR-NON AF JORDANIAN >60 Normal >=60 [facility] Comment on above: Performed By: #### C A, CREA #### [facility] [address] [address] [address] Kalpesh Coon COVID/FLU RT-PCRon 3 SARS-CoV-2 (COVID-19) RNA RENETTA+probe Ql (Unsp spec) Negative [facility] Other COVID/FLU RT-PCR Negative [facility] Other MG MAMM SCREEN 3D ASAF CADon 09-26-2022 MG MAMM SCREEN 3D ASAF CAD Patient: SANDY BHANDARI Exam Date: 09/26/2022 : 1945 Gender:F Ordering : SUNITA ANDERSON DIRECTOR OF SECURITIES AND REAL ESTATE Admission #: [id number] Family : Order #: [id number] CLICK HERE TO VIEW EXAM RADIOLOGY REPORT [...] Treatments None Family Cancers None LOCATION: [facility] BREAST COMPOSITION: Heterogeneously dense,which may obscure [...] M.D. on 09/26/2022 at 11:57 Normal [facility] XR DEXA BONE DENSITYon 09-26 XR [...] SHY DOMINGUEZ Date: 2022-09-26 08:49 Normal [facility] MRI BRAIN WO W CONon 022 [...] CHUY JEFFERSON Date: 2022-07-31 07:22 Normal [facility] CREATININEon 07-30-2022 Creatinine [Mass/Vol] 0.67 mg/dL Normal 0.55-1.02 [facility] Comment on above: Performed By: #### C RONDA #### [facility] [address] [address] [address] Kalpesh Coon EGFR-AF JORDANIAN >60 Normal >=60 [facility] Comment on above: Performed By: #### C RONDA #### [facility] [address] [address] [address] Kalpesh Coon EGFR-NON AF JORDANIAN >60 Normal >=60 [facility] Comment on above: Performed By: #### C RONDA #### [facility] [address] [address] [address] Kalpesh Coon XR ankle LT min 3V*on 2021 XR ankle LT min 3V* [facility] Other XR ankle LT min 3V* [facility] Other XR ankle LT min 3V* [address] [facility] Other XR ankle LT min 3V* RUTHIE Marshall [address] [facility] Other XR ankle LT min 3V* XRay Report [facility] Other XR ankle LT min 3V* Signed [facility] Other XR ankle LT min 3V* Patient: Sandy Bhandari MR#: [id number] [place] [facility] Other XR ankle LT min 3V* 90 [facility] Other XR ankle LT min 3V* : 1945 Acct:[id number] [facility] Other XR ankle LT min 3V* Age/Sex: 77 / F ADM Date: 07/30/22 [facility] Other XR ankle LT min 3V* Loc: XDUCLY Room: Type: REG CLI [facility] Other XR ankle LT min 3V* Attending Dr: Lorraine MOSQUEDA [facility] Other XR ankle LT min 3V* Copies to: JAYLIN Kennedy [facility] Other XR ankle LT min 3V* Ordering Provider: JAYLIN Kennedy [facility] Other XR ankle LT min 3V* Date of Service: 07/30/22 [facility] Other XR ankle LT min 3V* XR/XR ankle LT min 3V*: Acute left ankle pain [facility] Other XR ankle LT min 3V* 3views leftankle [facility] Other XR ankle LT min 3V* COMPARISON:None [facility] Other XR ankle LT min 3V* HISTORY: Medial left ankle pain for one week. No injury [facility] Other XR ankle LT min 3V* No fracture, dislocation or focal soft tissue abnormality seen. No significant degeneration. [facility] Other XR ankle LT min 3V* XR/XR ankle LT min 3V* [facility] Other XR ankle LT min 3V* IMPRESSION: Unremarkable exam [facility] Other XR ankle LT min 3V* Impression dictated by: Eduardo Castaneda M.D.07/30/2022 11:50 AM [facility] Other XR ankle LT min 3V* Dictation Location: [facility]- [facility] Other XR ankle LT min 3V* Transcribed By: [facility] 07/30/22 1150 [facility] Other XR ankle LT min 3V* Dictated By: Eduardo Castaneda DO 07/30/22 1149 [facility] Other XR ankle LT min 3V* Signed By: [facility] Other XR ankle LT min 3V* 07/30/22 1150 [facility] Other XR ankle LT min 3V* [facility] Main [place] [address] [place] [address] XRay Report Signed Patient: Sandy Bhandari MR#: [id number] 90 : 1945 Acct:[id number] Age/Sex: 77 / F ADM Date: 07/30/22 Loc: XDUCLY Room: Type: [facility] Attending Dr: Lorraine JIMC Copies to: JAYLIN Kennedy Ordering Provider: JAYLIN Kennedy Date of Service: 07/30/22 XR/XR ankle LT min 3V*: Acute left ankle pain 3views leftankle COMPARISON:None HISTORY: Medial left ankle pain for one week. No injury No fracture, dislocation or focal soft tissue abnormality seen. No significant degeneration. XR/XR ankle LT min 3V* IMPRESSION: Unremarkable exam Impression dictated by: Eduardo Castaneda M.D.07/30/2022 11:50 AM Dictation Location: [place] [address] Transcribed By: [facility] 07/30/22 1150 Dictated By: Eduardo Castaneda DO 07/30/22 1149 Signed By: 07/30/22 1150 [facility] CBC AUTO DIFFon 05-06-2022 BASO # 0.0 103/ul Normal 0.0-0.1 [facility] Comment on above: Performed By: #### C BC #### [facility] [address] [place] [address] Dr. Kalpesh Coon Basophils/100 WBC (Bld) 0.7 % Normal 0.2-2.0 [facility] Comment on above: Performed By: #### C BC #### [facility] [address] [place] [address] Dr. Kalpesh Coon EO # 0.1 103/ul Normal 0.0-0.7 [facility] Comment on above: Performed By: #### C BC #### [facility] [address] [address] [address] Kalpesh Coon Eosinophils/100 WBC (Bld) 2.3 % Normal 0.9-7.0 [facility] Comment on above: Performed By: #### C BC #### [facility] [address] [place] [address] Dr. Kalpesh Coon Erythrocyte distribution width (RBC) [Ratio] 13.7 % Normal 11.0-15.0 [facility] Comment on above: Performed By: #### C BC #### [facility] [address] [place] [address] Dr. Kalpesh Coon Hematocrit (Bld) [Volume fraction] 41.9 % Normal 36.0-48.0 [facility] Comment on above: Performed By: #### C BC #### [facility] [address] [place] [address] Dr. Kalpesh Coon Hemoglobin (Bld) [Mass/Vol] 13.8 g/dL Normal 12.0-16.0 [facility] Comment on above: Performed By: #### C BC #### [facility] [address] [place] [address] Dr. Kalpesh Coon IG # 0.01 10e3/ul Normal 0.00-0.03 [facility] Comment on above: Performed By: #### C BC #### [facility] [address] [place] [address] Dr. Kalpesh Coon IG % 0.2 % Normal 0.0-0.5 [facility] Comment on above: Performed By: #### C BC #### [facility] [address] [place] [address] Dr. Kalpesh Coon LYMPH # 1.5 103/ul Normal 1.2-3.8 [facility] Comment on above: Performed By: #### C BC #### [facility] [address] [place] [address] Dr. Kalpesh Coon Lymphocytes/100 WBC (Bld) 25.6 % Normal 20.5-60.0 [facility] Comment on above: Performed By: #### C BC #### [facility] [address] [place] [address] Dr. Kalpesh Coon MANUAL DIFF REQ NO Normal [facility] Comment on above: Performed By: #### C BC #### [facility] [address] [place] [address] Dr. Kalpesh Coon MCH (RBC) [Entitic mass] 31.3 pg Normal 26.7-34.0 [facility] Comment on above: Performed By: #### C BC #### [facility] [address] [place] [address] Dr. Kalpesh Coon MCHC (RBC) [Mass/Vol] 32.9 g/dL Normal 29.9-35.2 [facility] Comment on above: Performed By: #### C BC #### [facility] [address] [address] [address] Kalpesh Coon MCV (RBC) [Entitic vol] 95.0 fL Normal 81.0-99.0 [facility] Comment on above: Performed By: #### C BC #### [facility] [address] [address] [address] Kalpesh Coon MONO # 0.7 103/ul Normal 0.3-0.8 [facility] Comment on above: Performed By: #### C BC #### [facility] [address] [place] [address] Dr. Kalpesh Coon Monocytes/100 WBC (Bld) 10.8 % Normal 1.7-12.0 [facility] Comment on above: Performed By: #### C BC #### [facility] [address] [place] [address] Dr. Kalpesh Coon NEUT # 3.6 103/ul Normal 1.4-6.5 [facility] Comment on above: Performed By: #### C BC #### [facility] [address] [place] [address] Dr. Kalpesh Coon Neutrophils/100 WBC (Bld) 60.4 % Normal 43.0-75.0 [facility] Comment on above: Performed By: #### C BC #### [facility] [address] [place] [address] Dr. Kalpesh Coon Platelet mean volume (Bld) [Entitic vol] 11.8 fL Normal 9.5-13.5 [facility] Comment on above: Performed By: #### C BC #### [facility] [address] [place] [address] Dr. Kalpesh Coon PLT 181 103/ul Normal 150-450 [facility] Comment on above: Performed By: #### C BC #### [facility] [address] [place] [address] Dr. Kalpesh Coon RBC 4.41 106/ul Normal 4.20-5.40 [facility] Comment on above: Performed By: #### C BC #### [facility] [address] [address] [address] Kalpesh Coon WBC 6.0 103/ul Normal 4.0-11.0 [facility] Comment on above: Performed By: #### C BC #### [facility] [address] [address] [address] Kalpesh Coon LIPID PROFILEon 05-06-2022 CHOL-HDL RATIO NORM SEE BELOW Normal [facility] Comment on above: Result Comment: 3.3 - 4.4 LOW RISK 4.4 - 7.1 AVERAGE RISK 7.1 - 11.0 MODERATE RISK >11.0 HIGH RISK Performed By: #### L IPID, CMP #### [facility] [address] [place] [address] Dr. Kalpesh Coon Cholesterol [Mass/Vol] 214 mg/dL Critically high <=200 [facility] Comment on above: Performed By: #### L IPID, CMP #### [facility] [address] [place] [address] Dr. Kalpesh Coon Cholesterol in HDL [Mass/Vol] 63 mg/dL Critically high 40-60 [facility] Comment on above: Performed By: #### L IPID, CMP #### [facility] [address] [place] [address] Dr. Kalpesh Coon Cholesterol in LDL [Mass/Vol] 131.4 mg/dL Normal [facility] Comment on above: Performed By: #### L IPID, CMP #### [facility] [address] [place] [address] Dr. Kalpesh Coon Cholesterol.total/ Cholesterol in HDL [Mass ratio] 3.4 {ratio} Normal [facility] Comment on above: Performed By: #### L IPID, CMP #### [facility] [address] [place] [address] Dr. Kalpesh Coon HDL NORMAL > or = 60 mg/dl - LOW CARDIOVASCULAR RISK <40 mg/dl - HIGH CARDIOVASCULAR RISK Normal [facility] Comment on above: Performed By: #### L IPID, CMP #### [facility] [address] [place] [address] Dr. Kalpesh Coon LDL CALC NORMAL SEE BELOW Normal [facility] Comment on above: Result Comment: <100 mg/dl OPTIMAL 100 - 129 mg/dl NEAR OR ABOVE OPTIMAL 130 - 159 mg/dl BORDERLINE HIGH 160 - 189 mg/dl HIGH >190 mg/dl VERY HIGH Performed By: #### L IPID, CMP #### [facility] [address] [place] [address] Dr. Kalpesh Coon Triglyceride [Mass/Vol] 98 mg/dL Normal <=150 [facility] Comment on above: Performed By: #### L IPID, CMP #### [facility] [address] [address] [address] Kalpesh Coon VLDL CALC 19.6 mg/dL Normal [facility] Comment on above: Performed By: #### L IPID, CMP #### [facility] [address] [place] [address] Dr. Kalpesh Coon PROF 14(COMP METB)on 022 Albumin [Mass/Vol] 4.0 g/dL Normal 3.4-5.0 [facility] Comment on above: Performed By: #### L IPID, CMP #### [facility] [address] [address] [address] Kalpesh Coon Albumin/Globulin [Mass ratio] 1.2 {ratio} Normal [facility] Comment on above: Performed By: #### L IPID, CMP #### [facility] [address] [place] [address] Dr. Kalpesh Coon ALP [Catalytic activity/Vol] 63 U/L Normal 46-116 [facility] Comment on above: Performed By: #### L IPID, CMP #### [facility] [address] [place] [address] Dr. Kalpesh Coon ALT [Catalytic activity/Vol] 27 U/L Normal 14-59 [facility] Comment on above: Performed By: #### L IPID, CMP #### [facility] [address] [place] [address] Dr. Kalpesh Coon Anion gap [Moles/Vol] 14.4 mmol/L Normal [facility] Comment on above: Performed By: #### L IPID, CMP #### [facility] [address] [address] [address] Kalpesh Coon AST [Catalytic activity/Vol] 25 U/L Normal 15-37 [facility] Comment on above: Performed By: #### L IPID, CMP #### [facility] [address] [address] [address] Kalpesh Coon Bilirubin [Mass/Vol] 1.3 mg/dL Critically high 0.2-1.0 [facility] Comment on above: Performed By: #### L IPID, CMP #### [facility] [address] [address] [address] Kalpesh Coon Calcium [Mass/Vol] 9.2 mg/dL Normal 8.5-10.1 [facility] Comment on above: Performed By: #### L IPID, CMP #### [facility] [address] [place] [address] Dr. Kalpesh Coon Chloride [Moles/Vol] 101 mmol/L Normal 98-107 [facility] Comment on above: Performed By: #### L IPID, CMP #### [facility] [address] [address] [address] Kalpesh Coon CO2 [Moles/Vol] 23.8 mmol/L Normal 21.0-32.0 [facility] Comment on above: Performed By: #### L IPID, CMP #### [facility] [address] [place] [address] Dr. Kalpesh Coon Creatinine [Mass/Vol] 0.75 mg/dL Normal 0.55-1.02 [facility] Comment on above: Performed By: #### L IPID, CMP #### [facility] [address] [address] [address] Kalpesh Coon EGFR-AF JORDANIAN >60 Normal >=60 [facility] Comment on above: Performed By: #### L IPID, CMP #### [facility] [address] [place] [address] Dr. Kalpesh Coon EGFR-NON AF JORDANIAN >60 Normal >=60 [facility] Comment on above: Performed By: #### L IPID, CMP #### [facility] [address] [address] [address] Kalpesh Coon Globulin (S) [Mass/Vol] 3.3 g/dL Normal [facility] Comment on above: Performed By: #### L IPID, CMP #### [facility] [address] [place] [address] Dr. Kalpesh Coon Glucose [Mass/Vol] 94 mg/dL Normal 74-106 [facility] Comment on above: Performed By: #### L IPID, CMP #### [facility] [address] [place] [address] Dr. Kalpesh Coon Potassium [Moles/Vol] 4.2 mmol/L Normal 3.5-5.1 [facility] Comment on above: Performed By: #### L IPID, CMP #### [facility] [address] [place] [address] Dr. Kalpesh Coon Protein [Mass/Vol] 7.3 g/dL Normal 6.4-8.2 [facility] Comment on above: Performed By: #### L IPID, CMP #### [facility] [address] [place] [address] Dr. Kalpesh Coon Sodium [Moles/Vol] 135 mmol/L Critically low 136-145 [facility] Comment on above: Performed By: #### L IPID, CMP #### [facility] [address] [place] [address] Dr. Kalpesh Coon Urea nitrogen [Mass/Vol] 16.0 mg/dL Normal 7.0-18.0 [facility] Comment on above: Performed By: #### L IPID, CMP #### [facility] [address] [place] [address] Dr. Kalpesh Coon Urea nitrogen/Creatinin e [Mass ratio] 21.3 mg/mg Normal [facility] Comment on above: Performed By: #### L IPID, CMP #### [facility] [address] [place] [address] Dr. Kalpesh Coon VITAMIN D 25 OHon 05-06-2022 VIT D 25-OH 54.3 ng/mL Normal [facility] Comment on above: Performed By: #### V ITAD #### [facility] [address] [place] [address] Dr. Kalpesh Coon VIT D RANGES SEE BELOW Normal [facility] Comment on above: Result Comment: <20 ng/mL Vit D deficient 20 - <30 ng/mL Vit D insufficient 30 - 100 ng/mL Vit D sufficient >100 ng/mL Potential Toxicity Performed By: #### V ITAD #### [facility] [address] [place] [address] Dr. Kalpesh Coon Vital Signs Date Time Vital Sign Value Performing Clinician Facility 01-20-2023 09:00-0400 Body height 152.4 cm Tameka Velasco Other [facility] Other 01-20-2023 09:00-0400 Body mass index (BMI) [Ratio] 20.23 kg/m2 Tameka Velasco Other [facility] Other 01-20-2023 09:00-0400 Body temperature 96.4 [degF] Tameka Velasco Other [facility] Other 01-20-2023 09:00-0400 Body weight 46.99 kg Tameka Velasco Other [facility] Other 01-20-2023 09:00-0400 Diastolic blood pressure 75 mm[Hg] Tameka Velasco Other [facility] Other 01-20-2023 09:00-0400 Respiratory rate 18 /min Tameka Velasco Other [facility] Other 01-20-2023 09:00-0400 SaO2% (BldA) [Mass fraction] 99 % Tameka Velasco Other [facility] Other 01-20-2023 09:00-0400 Systolic blood pressure 129 mm[Hg] Tameka Velasco Other [facility] Other 01-11-2023 09:00-0400 Body height 152.4 cm Antionette Ward Other [facility] Other 01-11-2023 09:00-0400 Body mass index (BMI) [Ratio] 20.35 kg/m2 Antionette Ward Other [facility] Other 01-11-2023 09:00-0400 Body temperature 99.3 [degF] Antionette Ward Other [facility] Other 01-11-2023 09:00-0400 Body weight 47.27 kg Antionette Ward Other [facility] Other 01-11-2023 09:00-0400 Diastolic blood pressure 75 mm[Hg] Antionette Ward Other [facility] Other 01-11-2023 09:00-0400 Respiratory rate 18 /min Antionette Ward Other [facility] Other 01-11-2023 09:00-0400 SaO2% (BldA) [Mass fraction] 99 % Antionette Ward Other [facility] Other 01-11-2023 09:00-0400 Systolic blood pressure 114 mm[Hg] Antionette Ward Other [facility] Other 10-25-2022 10:05-0400 Body height 152.4 cm Lorraine Rahman Other [facility] Other 10-25-2022 10:05-0400 Body mass index (BMI) [Ratio] 20.31 kg/m2 Lorraine Lacey Other [facility] Other 10-25-2022 10:05-0400 Body temperature 99 [degF] Lorranie Lacey Other [facility] Other 10-25-2022 10:05-0400 Body weight 47.17 kg Lorraine Lacey Other [facility] Other 10-25-2022 10:05-0400 Respiratory rate 18 /min Lorraine Lacey Other [facility] Other 10-25-2022 10:05-0400 SaO2% (BldA) [Mass fraction] 97 % Lorraine Lacey Other [facility] Other 07-30-2022 12:05-0500 Body height 152.4 cm Lorraine Lacey Other [facility] Other 07-30-2022 12:05-0500 Body mass index (BMI) [Ratio] 20.31 kg/m2 Lorraine Lacey Other [facility] Other 07-30-2022 12:05-0500 Body weight 47.17 kg Lorraine Lacey Other [facility] Other 07-30-2022 12:05-0500 Diastolic blood pressure 70 mm[Hg] Lorraine Lacey Other [facility] Other 07-30-2022 12:05-0500 Respiratory rate 18 /min Lorraine Lacey Other [facility] Other 07-30-2022 12:05-0500 SaO2% (BldA) [Mass fraction] 100 % Lorraine Rahman Other [facility] Other 07-30-2022 12:05-0500 Systolic blood pressure 122 mm[Hg] Lorraine Rahman Other [facility] Other Encounters Encounter Date Encounter Type Care Provider Facility Start: 08-18-2023 End: 08-18-2023 ambulatory CRUZ JUSTIN Not Available Start: 01-20-2023 End: 01-20-2023 ambulatory Tameka Velasco Other [facility] Other Start: 01-20-2023 Office outpatient vi sit 15 minutes Tameka Velasco [facility] Start: 01-11-2023 End: 01-11-2023 ambulatory Antionette Ward Other [facility] Other Start: 01-11-2023 Office outpatient vi sit 25 minutes Antionette Ward [facility] Start: 11-27-2022 End: 11-28-[address] JEVON ONTIVEROS Facility:[facility] Start: 10-25-2022 End: 10-25-2022 ambulatory Lorraine Rahman Other [facility] Other Start: 10-25-2022 Office outpatient vi sit 15 minutes Lorraine Lacey [facility] Start: 09-26-2022 End: 09-27-2022 ambulatory DIRECTOR OF SECURITIES AND REAL ESTATE CRUZ ANDERSON Facility:[facility] Start: 07-30-2022 Office outpatient ne w 20 minutes Lorraine Lacey [facility] Start: 07-30-2022 End: 07-30-2022 ambulatory Lorraine Lacey Facility:[facility] Start: 07-30-2022 End: 07-30-2022 ambulatory [employer] Lorraine Rahman Work Phone: [facility] Work Phone: Start: 07-30-2022 End: 07-30-2022 Patient encounter procedure [employer]-C Lorraine Rahman Work Phone: [facility] Start: 07-30-2022 End: 07-31-[address] RADHA KIM Facility:[facility] Start: 05-06-2022 End: 05-07-2022 ambulatory SUNITA CRUZ ANDERSON Facility:[facility] Procedures Date Procedure Procedure Detail Performing Clinician Start: 07-30-2022 X-ray of left ankle [employer]ATOR- C Lorraine Rahman Work Phone: Payers Date Payer Category Payer Self-pay [id number] Private Health Insurance [id number] 1945 Unknown [id number] 1945 Unknown [id number] 3 1945 Unknown [id number] 3 1945 Unknown [id number] 3 1945 Unknown [id number] 61 Private Health Insurance [employer] PFFS N on Pt [id number] Unknown [id number] Social History Date Type Detail Facility Tobacco smoking status NHIS Unknown if ever smoked [facility] Work Phone: Start: 1945 Sex Assigned At Female F [facility] Sex Assigned At Sex Assigned At Bir th [facility] Other Evaluation note 01-20-2023 Note Date & [...] to 7 days, sooner if significantly worsening. [facility] Other Evaluation note 01-11-2023 Note Date & [...] will send in Rx of prednisone and Dale to use as directed. Encouraged supportive care [...] treatment plan. Patient left in stable condition. [facility] Other Evaluation note 10-25-2022 Note Date & [...] no improvement in 2 to 3 days. [facility] Other Evaluation note 07-30-2022 Note Date & [...] no improvement in 5 to 7 days [facility] Other Evaluation note Note Date & Type Note Facility Evaluation note No assessment information availa [facility] Work Phone: History general Narrative - Reported Note Date & Type Note Facility History general Narrative - Reported Type Medical History hyperlipidemia Medical History OAB (overactive bladder) Surgical History hysterectomy Surgical History D&C Surgical History tonsillectomy Hospitalization History See Above [facility] Other Chief Complaint and Reason for Visit Chief Complaint M25.572 Advance Directives No Advanced Directives Records Found Advance Directive Response Recorded Date/ Time Advance Directives No September 11:06am Summary Purpose Family History No Family History Records FoundNo Family History Records FoundNo Family History Records Found Additional Source Comments Care Teams (unrecognized sec tion and content) Team Status: Inactive Member Role Status Dates JAYLIN Walsh Attending Provider Active Goals (unrecognized section and content) Goals may be documented in a n alternate sectionNo InformationNo InformationNo InformationNo Information INFORMATION SOURCE (unrecogn ized section and content) DATE CREATED AUTHOR 08/02/2022 [facility] DATE CREATED AUTHOR AUTHOR'S ORGANIZ ATION 11/28/2022 [facility] DATE CREATED AUTHOR AUTHOR'S ORGANIZ ATION 08/19/2023 [facility] EPIC REASON FOR VISIT (unrecogniz ed section and [...] BE BASED ON THE PRIMARY CLINICAL RECORDS. [facility] [email or web address] [facility]. provides no warranty or guarantee of the accuracy or completeness of information in this document.
== END 2023-08-18 11:31 | disposition home or self-care (01) ==
PROVIDERS: Emergency Provider Emergency Medicine; PCP Nurse Practitioner
DX: R07.9 Chest pain, unspecified (principal); E87.1 Hypo-osmolality and hyponatremia; Z79.899 Other long term (current) drug therapy
CPT/HCPCS: 36415; 71045; 72040; 80048; 84484; 85025; 93005; 99285

== ENCOUNTER 2023-08-20 11:21 | Outpatient (OUT) | payer MEDICARE, SELFPAY ==
--- OUTSIDE RECORDS SUMMARY | 2023-08-20 11:25 | XMS_ITS | CCD ---
Author Name Unknown Address [address] [place] [address] Organization [facility] Care Team Providers Care [facility] Specialists Name Role Phone JAYLIN Rahman Attending Provider Lorraine Rahman Attending Unavailable Lorraine Rahman Admitting Unavailable Lorraine Rahman Unavailable AICHHOLZ, ASSEMBLER BODY CRUZ Attending Unavailable AICHHOLZ, ASSEMBLER BODY CRUZ Consulting Unavailable AICHHOLZ, ASSEMBLER BODY CRUZ Primary Care Unavailable AICHHOLZ, ASSEMBLER BODY CRUZ Admitting Unavailable TIMMIS, DR GARCIA Admitting Unavailable TIMMIS, DR GARCIA Attending Unavailable TIMMIS, DR GARCIA Consulting Unavailable AICHHOLZ, ASSEMBLER BODY CRUZ Primary Care Unavailable ZIEBER, DR CHUY House Consulting Unavailable AICHHOLZ, ASSEMBLER BODY CRUZ Attending Unavailable AICHHOLZ, ASSEMBLER BODY CRUZ Consulting Unavailable AICHHOLZ, ASSEMBLER BODY CRUZ Primary Care Unavailable AICHHOLZ, ASSEMBLER BODY CRUZ Admitting Unavailable ZIEBER, DR CHUY House Consulting Unavailable SHY DOMINGUEZ Consulting Unavailable NADERER, DR JEVON Solomon Attending Unavailable NADERER, DR JEVON Solomon Consulting Unavailable NADERER, DR JEVON Solomon Admitting Unavailable AICHHOLZ, ASSEMBLER BODY CRUZ Primary Care Unavailable Antionette Ward Unavailable [...] 1.5 mg/ml oral solution (2 sources) Uncompetitive S-hvatcv-T-aspartat e Receptor Antagonist, Sigma-1 Agonist Start: 01-11-2023 take 10 mL by mouth every eight hours [place] DM 7.5-7.5 MG/5ML 10 mL Orally every [...] 11-28-2022 Calcium [Mass/Vol] 9.2 mg/dL Normal 8.5-10.[address] [facility] Comment on above: Performed By: #### C A, CREA #### [facility] [address] [place] [address] Dr. Kalpesh Coon CREATININEon 11-28-2022 Creatinine [Mass/Vol] 0.78 mg/dL Normal 0.55-1.02 [facility] Comment on above: Performed By: #### C A, CREA #### [facility] [address] [address] [address] Kalpesh Coon EGFR-AF COLOMBIAN >60 Normal >=60 [facility] Comment on above: Performed By: #### C A, CREA #### [facility] [address] [place] [address] Dr. Kalpesh Coon EGFR-NON AF COLOMBIAN >60 Normal >=60 [facility] Comment on above: Performed By: #### C A, CREA #### [facility] [address] [address] [address] Kalpesh Coon COVID/FLU RT-PCRon 3 SARS-CoV-2 (COVID-19) RNA RENETTA+probe Ql (Unsp spec) Negative [facility] Other COVID/FLU RT-PCR Negative [employer] Other MG MAMM SCREEN 3D ASAF CADon 09-26-2022 MG MAMM SCREEN 3D ASAF CAD Patient: SANDY BHANDARI Exam Date: 09/26/2022 : 1945 Gender:F Ordering : SUNITA ANDERSON ASSEMBLER BODY Admission #: [id number] Family : Order #: [id number] CLICK HERE TO VIEW EXAM RADIOLOGY REPORT [...] Treatments None Family Cancers None LOCATION: [facility] BREAST COMPOSITION: Heterogeneously dense,which may obscure [...] M.D. on 09/26/2022 at 11:57 Normal [facility] XR DEXA BONE DENSITYon 09-26 XR [...] -2.5 + fragility fractures). Electronically authenticated by: SYH DOMINGUEZ Date: 2022-09-26 08:49 Normal [facility] MRI BRAIN WO W CONon 022 [...] CHUY JEFFERSON Date: 2022-07-31 07:22 Normal [facility] CREATININEon 07-30-2022 Creatinine [Mass/Vol] 0.67 mg/dL Normal 0.55-1.02 [facility] Comment on above: Performed By: #### C RONDA #### [facility] [address] [address] [address] Kalpesh Coon EGFR-AF COLOMBIAN >60 Normal >=60 [facility] Comment on above: Performed By: #### C RONDA #### [facility] [address] [address] [address] Kalpesh Coon EGFR-NON AF COLOMBIAN >60 Normal >=60 [facility] Comment on above: Performed By: #### C RONDA #### [facility] [address] [address] [address] Kalpesh Coon XR ankle LT min 3V*on 2021 XR ankle LT min 3V* [facility] [employer] Other XR ankle LT min 3V* [facility] [employer] Other XR ankle LT min 3V* [address] [facility] [employer] Other XR ankle LT min 3V* RUTHIE Marshall [address] [facility] Other XR ankle LT min 3V* XRay Report [facility] Other XR ankle LT min 3V* Signed [facility] Other XR ankle LT min 3V* Patient: Sandy Bhandari MR#: [id number] [place] [employer] Other XR ankle LT min 3V* 90 [facility] Other XR ankle LT min 3V* : 1945 Acct:[id number] [facility] Other XR ankle LT min 3V* Age/Sex: 77 / F ADM Date: 07/30/22 [facility] Other XR ankle LT min 3V* Loc: XDUCLY Room: Type: REG CLI [facility] Other XR ankle LT min 3V* Attending Dr: Lorraine MOSQUEDA [facility] Other XR ankle LT min 3V* Copies to: JAYLIN Kennedy [facility] Other XR ankle LT min 3V* Ordering Provider: JAYLIN Kennedy [facility] Other XR ankle LT min 3V* Date of Service: 07/30/22 [facility] Other XR ankle LT min 3V* XR/XR ankle LT min 3V*: Acute left ankle pain [facility] Other XR ankle LT min 3V* 3views leftankle [facility] Other XR ankle LT min 3V* COMPARISON:None [facility] Other XR ankle LT min 3V* HISTORY: Medial left ankle pain for one week. No injury [facility] Other XR ankle LT min 3V* No fracture, dislocation or focal soft tissue abnormality seen. No significant degeneration. [facility] Other XR ankle LT min 3V* XR/XR ankle LT min 3V* [facility] Other XR ankle LT min 3V* IMPRESSION: Unremarkable exam [facility] Other XR ankle LT min 3V* Impression dictated by: Eduardo Castaneda M.D.07/30/2022 11:50 AM [facility] Other XR ankle LT min 3V* Dictation Location: [facility] Other XR ankle LT min 3V* Transcribed By: [facility] 07/30/22 1150 [facility] Other XR ankle LT min 3V* Dictated By: Eduardo Castaneda DO 07/30/22 1149 [facility] Other XR ankle LT min 3V* Signed By: [facility] Other XR ankle LT min 3V* 07/30/22 1150 [facility] Other XR ankle LT min 3V* [facility] [place] [address] [place] [address] XRay Report Signed Patient: Sandy Bhandari MR#: [id number] 90 : 1945 Acct:[id number] Age/Sex: 77 / F ADM Date: 07/30/22 Loc: XDUCLY Room: Type: [facility] Attending Dr: Lorraine JIMC Copies to: [...] Eduardo Castaneda M.D.07/30/2022 11:50 AM Dictation Location: [place] [address] Transcribed By: [facility] 07/30/22 1150 Dictated By: Eduardo Castaneda DO 07/30/22 1149 Signed By: 07/30/22 1150 [facility] CBC AUTO DIFFon 05-06-2022 BASO # 0.0 103/ul Normal 0.0-0.1 [facility] Comment on above: Performed By: #### C BC #### [facility] [address] [place] [address] Dr. Kalpesh Coon Basophils/100 WBC (Bld) 0.7 % Normal 0.2-2.0 [facility] Comment on above: Performed By: #### C BC #### [facility] [address] [place] [address] Dr. Kalpesh Coon EO # 0.1 103/ul Normal 0.0-0.7 [facility] Comment on above: Performed By: #### C BC #### [facility] [address] [address] [address] Kalpesh Coon Eosinophils/100 WBC (Bld) 2.3 % Normal 0.9-7.0 [facility] Comment on above: Performed By: #### C BC #### [facility] [address] [place] [address] Dr. Kalpesh Coon Erythrocyte distribution width (RBC) [Ratio] 13.7 % Normal 11.0-15.0 [facility] Comment on above: Performed By: #### C BC #### [facility] [address] [place] [address] Dr. Kalpesh Coon Hematocrit (Bld) [Volume fraction] 41.9 % Normal 36.0-48.0 [facility] Comment on above: Performed By: #### C BC #### [facility] [address] [place] [address] Dr. Kalpesh Coon Hemoglobin (Bld) [Mass/Vol] 13.8 g/dL Normal 12.0-16.0 [facility] Comment on above: Performed By: #### C BC #### [facility] [address] [place] [address] Dr. Kalpesh Coon IG # 0.01 10e3/ul Normal 0.00-0.03 [facility] Comment on above: Performed By: #### C BC #### [facility] [address] [place] [address] Dr. Kalpesh Coon IG % 0.2 % Normal 0.0-0.5 [facility] Comment on above: Performed By: #### C BC #### [facility] [address] [place] [address] Dr. Kalpesh Coon LYMPH # 1.5 103/ul Normal 1.2-3.8 [facility] Comment on above: Performed By: #### C BC #### [facility] [address] [place] [address] Dr. Kalpesh Coon Lymphocytes/100 WBC (Bld) 25.6 % Normal 20.5-60.0 [facility] Comment on above: Performed By: #### C BC #### [facility] [address] [place] [address] Dr. Kalpesh Coon MANUAL DIFF REQ NO Normal [facility] Comment on above: Performed By: #### C BC #### [facility] [address] [place] [address] Dr. Kalpesh Coon MCH (RBC) [Entitic mass] 31.3 pg Normal 26.7-34.0 [facility] Comment on above: Performed By: #### C BC #### [facility] [address] [place] [address] Dr. Kalpesh Coon MCHC (RBC) [Mass/Vol] 32.9 g/dL Normal 29.9-35.2 [facility] Comment on above: Performed By: #### C BC #### [facility] [address] [address] [address] Kalpesh Coon MCV (RBC) [Entitic vol] 95.0 fL Normal 81.0-99.0 [facility] Comment on above: Performed By: #### C BC #### [facility] [address] [address] [address] Kalpesh Coon MONO # 0.7 103/ul Normal 0.3-0.8 [facility] Comment on above: Performed By: #### C BC #### [facility] [address] [place] [address] Dr. Kalpesh Coon Monocytes/100 WBC (Bld) 10.8 % Normal 1.7-12.0 [facility] Comment on above: Performed By: #### C BC #### [facility] [address] [place] [address] Dr. Kalpesh Coon NEUT # 3.6 103/ul Normal 1.4-6.5 [facility] Comment on above: Performed By: #### C BC #### [facility] [address] [place] [address] Dr. Kalpesh Coon Neutrophils/100 WBC (Bld) 60.4 % Normal 43.0-75.0 [facility] Comment on above: Performed By: #### C BC #### [facility] [address] [place] [address] Dr. Kalpesh Coon Platelet mean volume (Bld) [Entitic vol] 11.8 fL Normal 9.5-13.5 [facility] Comment on above: Performed By: #### C BC #### [facility] [address] [place] [address] Dr. Kalpesh Coon PLT 181 103/ul Normal 150-450 [facility] Comment on above: Performed By: #### C BC #### [facility] [address] [place] [address] Dr. Kalpesh Coon RBC 4.41 106/ul Normal 4.20-5.40 [facility] Comment on above: Performed By: #### C BC #### [facility] [address] [address] [address] Kalpesh Coon WBC 6.0 103/ul Normal 4.0-11.0 [facility] Comment on above: Performed By: #### C BC #### [facility] [address] [address] [address] Kalpesh Coon LIPID PROFILEon 05-06-2022 CHOL-HDL RATIO NORM SEE BELOW Normal [facility] Comment on above: Result Comment: 3.3 - 4.4 LOW RISK 4.4 - 7.1 AVERAGE RISK 7.1 - 11.0 MODERATE RISK >11.0 HIGH RISK Performed By: #### L IPID, CMP #### [facility] [address] [place] [address] Dr. Kalpesh Coon Cholesterol [Mass/Vol] 214 mg/dL Critically high <=200 [facility] Comment on above: Performed By: #### L IPID, CMP #### [facility] [address] [place] [address] Dr. Kalpesh Coon Cholesterol in HDL [Mass/Vol] 63 mg/dL Critically high 40-60 [facility] Comment on above: Performed By: #### L IPID, CMP #### [facility] [address] [place] [address] Dr. Kalpesh Coon Cholesterol in LDL [Mass/Vol] 131.4 mg/dL Normal [facility] Comment on above: Performed By: #### L IPID, CMP #### [facility] [address] [place] [address] Dr. Kalpesh Coon Cholesterol.total/ Cholesterol in HDL [Mass ratio] 3.4 {ratio} Normal [facility] Comment on above: Performed By: #### L IPID, CMP #### [facility] [address] [place] [address] Dr. Kalpesh Coon HDL NORMAL > or = 60 mg/dl - LOW CARDIOVASCULAR RISK <40 mg/dl - HIGH CARDIOVASCULAR RISK Normal [facility] Comment on above: Performed By: #### L IPID, CMP #### [facility] [address] [place] [address] Dr. Kalpesh Coon LDL CALC NORMAL SEE BELOW Normal [facility] Comment on above: Result Comment: <100 mg/dl OPTIMAL 100 - 129 mg/dl NEAR OR ABOVE OPTIMAL 130 - 159 mg/dl BORDERLINE HIGH 160 - 189 mg/dl HIGH >190 mg/dl VERY HIGH Performed By: #### L IPID, CMP #### [facility] [address] [place] [address] Dr. Kalpesh Coon Triglyceride [Mass/Vol] 98 mg/dL Normal <=150 [facility] Comment on above: Performed By: #### L IPID, CMP #### [facility] [address] [address] [address] Kalpesh Coon VLDL CALC 19.6 mg/dL Normal [facility] Comment on above: Performed By: #### L IPID, CMP #### [facility] [address] [place] [address] Dr. Kalpesh Coon PROF 14(COMP METB)on 022 Albumin [Mass/Vol] 4.0 g/dL Normal 3.4-5.[address] [facility] Comment on above: Performed By: #### L IPID, CMP #### [facility] [address] [address] [address] Kalpesh Coon Albumin/Globulin [Mass ratio] 1.2 {ratio} Normal [facility] Comment on above: Performed By: #### L IPID, CMP #### [facility] [address] [place] [address] Dr. Kalpesh Coon ALP [Catalytic activity/Vol] 63 U/L Normal 46-116 [facility] Comment on above: Performed By: #### L IPID, CMP #### [facility] [address] [place] [address] Dr. Kalpesh Coon ALT [Catalytic activity/Vol] 27 U/L Normal 14-59 [facility] Comment on above: Performed By: #### L IPID, CMP #### [facility] [address] [place] [address] Dr. Kalpesh Coon Anion gap [Moles/Vol] 14.4 mmol/L Normal [facility] Comment on above: Performed By: #### L IPID, CMP #### [facility] [address] [address] [address] Kalpesh Coon AST [Catalytic activity/Vol] 25 U/L Normal 15-37 [facility] Comment on above: Performed By: #### L IPID, CMP #### [facility] [address] [address] [address] Kalpesh Coon Bilirubin [Mass/Vol] 1.3 mg/dL Critically high 0.2-1.0 [facility] Comment on above: Performed By: #### L IPID, CMP #### [facility] [address] [address] [address] Kalpesh Coon Calcium [Mass/Vol] 9.2 mg/dL Normal 8.5-10.[address] [facility] Comment on above: Performed By: #### L IPID, CMP #### [facility] [address] [place] [address] Dr. Kalpesh Coon Chloride [Moles/Vol] 101 mmol/L Normal 98-107 [facility] Comment on above: Performed By: #### L IPID, CMP #### [facility] [address] [address] [address] Kalpesh Coon CO2 [Moles/Vol] 23.8 mmol/L Normal 21.0-32.0 [facility] Comment on above: Performed By: #### L IPID, CMP #### [facility] [address] [place] [address] Dr. Kalpesh Coon Creatinine [Mass/Vol] 0.75 mg/dL Normal 0.55-1.02 [facility] Comment on above: Performed By: #### L IPID, CMP #### [facility] [address] [address] [address] Kalpesh Coon EGFR-AF COLOMBIAN >60 Normal >=60 [facility] Comment on above: Performed By: #### L IPID, CMP #### [facility] [address] [place] [address] Dr. Kalpesh Coon EGFR-NON AF COLOMBIAN >60 Normal >=60 [facility] Comment on above: Performed By: #### L IPID, CMP #### [facility] [address] [address] [address] Kalpesh Coon Globulin (S) [Mass/Vol] 3.3 g/dL Normal [facility] Comment on above: Performed By: #### L IPID, CMP #### [facility] [address] [place] [address] Dr. Kalpesh Coon Glucose [Mass/Vol] 94 mg/dL Normal 74-[address] [facility] Comment on above: Performed By: #### L IPID, CMP #### [facility] [address] [place] [address] Dr. Kalpesh Coon Potassium [Moles/Vol] 4.2 mmol/L Normal 3.5-5.1 [facility] Comment on above: Performed By: #### L IPID, CMP #### [facility] [address] [place] [address] Dr. Kalpesh Coon Protein [Mass/Vol] 7.3 g/dL Normal 6.4-8.[address] [facility] Comment on above: Performed By: #### L IPID, CMP #### [facility] [address] [place] [address] Dr. Kalpesh Coon Sodium [Moles/Vol] 135 mmol/L Critically low 136-145 Th [facility] Comment on above: Performed By: #### L IPID, CMP #### [facility] [address] [place] [address] Dr. Kalpesh Coon Urea nitrogen [Mass/Vol] 16.0 mg/dL Normal 7.0-18.0 [facility] Comment on above: Performed By: #### L IPID, CMP #### [facility] [address] [place] [address] Dr. Kalpesh Coon Urea nitrogen/Creatinin e [Mass ratio] 21.3 mg/mg Normal [facility] Comment on above: Performed By: #### L IPID, CMP #### [facility] [address] [place] [address] Dr. Kalpesh Coon VITAMIN D 25 OHon 05-06-2022 VIT D 25-OH 54.3 ng/mL Normal [facility] Comment on above: Performed By: #### V ITAD #### [facility] [address] [place] [address] Dr. Kalpesh Coon VIT D RANGES SEE BELOW Normal [facility] Comment on above: Result Comment: <20 ng/mL Vit D deficient 20 - <30 ng/mL Vit D insufficient 30 - 100 ng/mL Vit D sufficient >100 ng/mL Potential Toxicity Performed By: #### V ITAD #### [facility] [address] [place] [address] Dr. Kalpesh Coon Vital Signs Date Time Vital Sign Value Performing Clinician Facility 01-20-2023 09:00-0400 Body height 152.4 cm Tameka Velasco Other [facility] 01-20-2023 09:00-0400 Body mass index (BMI) [Ratio] 20.23 kg/m2 Tameka Velasco Other [facility] 01-20-2023 09:00-0400 Body temperature 96.4 [degF] Tameka Velasco Other [facility] Other 01-20-2023 09:00-0400 Body weight 46.99 kg Tameka Velasco Other [facility] Other 01-20-2023 09:00-0400 Diastolic blood pressure 75 mm[Hg] Tameka Velasco Other [facility] 01-20-2023 09:00-0400 Respiratory rate 18 /min Tameka Velasco Other [facility] Other 01-20-2023 09:00-0400 SaO2% (BldA) [Mass fraction] 99 % Tameka Velasco Other [facility] 01-20-2023 09:00-0400 Systolic blood pressure 129 mm[Hg] Tameka Velasco Other [facility] Other 01-11-2023 09:00-0400 Body height 152.4 cm Antionette Ward Other [facility] Other 01-11-2023 09:00-0400 Body mass index (BMI) [Ratio] 20.35 kg/m2 Antionette Ward Other [facility] Other 01-11-2023 09:00-0400 Body temperature 99.3 [degF] Antionette Ward Other [facility] Other 01-11-2023 09:00-0400 Body weight 47.27 kg Antionette Ward Other [facility] Other 01-11-2023 09:00-0400 Diastolic blood pressure 75 mm[Hg] Antionette Ward Other [facility] Other 01-11-2023 09:00-0400 Respiratory rate 18 /min Antionette Ward Other [facility] Other 01-11-2023 09:00-0400 SaO2% (BldA) [Mass fraction] 99 % Antionette Ward Other [facility] Other 01-11-2023 09:00-0400 Systolic blood pressure 114 mm[Hg] Antionette Ward Other [facility] Other 10-25-2022 10:05-0400 Body height 152.4 cm Lorraine Rahman Other [facility] Other 10-25-2022 10:05-0400 Body mass index (BMI) [Ratio] 20.31 kg/m2 Lorraine Lacey Other [facility] Other 10-25-2022 10:05-0400 Body temperature 99 [degF] Lorraine Lacey Other [facility] Other 10-25-2022 10:05-0400 Body weight 47.17 kg Lorraine Lacey Other [facility] Other 10-25-2022 10:05-0400 Respiratory rate 18 /min Lorraine Lacey Other [facility] Other 10-25-2022 10:05-0400 SaO2% (BldA) [Mass fraction] 97 % Lorraine Lacey Other [facility] Other 07-30-2022 12:05-0500 Body height 152.4 cm Lorraine Lacey Other [facility] Other 07-30-2022 12:05-0500 Body mass index (BMI) [Ratio] 20.31 kg/m2 Lorraine Lacey Other [facility] Other 07-30-2022 12:05-0500 Body weight 47.17 kg Lorraine Lacey Other [facility] Other 07-30-2022 12:05-0500 Diastolic blood pressure 70 mm[Hg] Lorraine Lacey Other [facility] Other 07-30-2022 12:05-0500 Respiratory rate 18 /min Lorraine Lacey Other [facility] Other 07-30-2022 12:05-0500 SaO2% (BldA) [Mass fraction] 100 % Lorraine Rahman Other [facility] Other 07-30-2022 12:05-0500 Systolic blood pressure 122 mm[Hg] Lorraine Rahman Other [facility] Other Encounters Encounter Date Encounter Type Care Provider Facility Start: 08-18-2023 End: 08-18-2023 ambulatory CRUZ JUSTIN Not Available Start: 01-20-2023 End: 01-20-2023 ambulatory Tameka Velasco Other [facility] Other Start: 01-20-2023 Office outpatient vi sit 15 minutes Tameka Velasco [facility] Start: 01-11-2023 End: 01-11-2023 ambulatory Antionette Ward Other [facility] Other Start: 01-11-2023 Office outpatient vi sit 25 minutes Antionette Ward [facility] Start: 11-27-2022 End: 11-28-[address] JEVON ONTIVEROS Facility:[facility] Start: 10-25-2022 End: 10-25-2022 ambulatory Lorraine Rahman Other [facility] Other Start: 10-25-2022 Office outpatient vi sit 15 minutes Lorraine Lacey [facility] Start: 09-26-2022 End: 09-27-2022 ambulatory ASSEMBLER BODY CRUZ ANDERSON Facility:[facility] Start: 07-30-2022 Office outpatient ne w 20 minutes Lorraine Lacey [facility] Start: 07-30-2022 End: 07-30-2022 ambulatory Lorraine Lacey Facility:[facility] Start: 07-30-2022 End: 07-30-2022 ambulatory EMERGENCY DEPARTMENT DIRECTOR-C Lorraine Rahman Work Phone: [facility] Work Phone: Start: 07-30-2022 End: 07-30-2022 Patient encounter procedure EMERGENCY DEPARTMENT DIRECTOR-C Lorraine Rahman Work Phone: [facility] Start: 07-30-2022 End: 07-31-[address] RADHA KIM Facility:[facility] Start: 05-06-2022 End: 05-07-2022 ambulatory SUNITA CRUZ ANDERSON Facility:[facility] Procedures Date Procedure Procedure Detail Performing Clinician Start: 07-30-2022 X-ray of left ankle EMERGENCY DEPARTMENT DIRECTOR- C Lorraine Rahman Work Phone: Payers Date Payer Category Payer Self-pay [id number] 1957 Private Health Insurance 101 [id number] 1945 Unknown [id number] 3 1945 Unknown [id number] 3 1945 Unknown [id number] 3 1945 Unknown [id number] 3 1945 Unknown [id number] 59 Private Health Insurance [employer] P[employer]S N on Pt [id number] Unknown [id number] 1 Social History Date Type Detail Facility Tobacco smoking status NHIS Unknown if ever smoked [facility] Work Phone: Start: 1945 Sex Assigned At Female F [facility] Sex Assigned At Sex Assigned At Bir th Meludia Other Evaluation note 01-20-2023 Note Date & [...] to 7 days, sooner if significantly worsening. Meludia Other Evaluation note 01-11-2023 Note Date & [...] will send in Rx of prednisone and [place] to use as directed. Encouraged supportive care [...] treatment plan. Patient left in stable condition. Meludia Other Evaluation note 10-25-2022 Note Date & [...] no improvement in 2 to 3 days. Meludia Other Evaluation note 07-30-2022 Note Date & [...] no improvement in 5 to 7 days Meludia Other Evaluation note Note Date & Type Note Facility Evaluation note No assessment information availa [facility] Work Phone: History general Narrative - Reported Note Date & Type Note Facility History general Narrative - Reported Type Medical History hyperlipidemia Medical History OAB (overactive bladder) Surgical History hysterectomy Surgical History D&C Surgical History tonsillectomy Hospitalization History See Above Meludia Other Chief Complaint and Reason for Visit [...] section and content) DATE CREATED AUTHOR 08/02/[address] [facility] DATE CREATED AUTHOR AUTHOR'S ORGANIZ ATION 11/28/2022 [facility] DATE CREATED AUTHOR AUTHOR'S ORGANIZ ATION 08/19/2023 [facility] EPIC REASON FOR VISIT (unrecogniz [...] BE BASED ON THE PRIMARY CLINICAL RECORDS. [facility]. provides no warranty or guarantee of the accuracy or completeness of information in this document.
--- NOTE | 2023-08-20 11:30 | XR_ITS ---
[address] [address] Patient Name: SANDY GIBBS MRN: [id number] date: 1945 Sex: F Assigned Patient Location: LAB Current Patient Location: LAB Accession/Order Number: [id number] Exam Date: 08/20/2023 11:35 Report Date: 08/20/2023 12:42 At the request of: CRUZ ANDERSON Procedure: XR cervical spine 2-3V EXAM: XR cervical spine 2-3V HISTORY: Neck Pain COMPARISON: None. TECHNIQUE: 3 views Findings/impression: Moderate reversal cervical spine lordosis. Anterolisthesis of C3 over C4 by 3 mm. Maintained vertebral body heights. Severe endplate degenerative changes and disc disease of C4-C6, most prominent at C4-C5. No acute fracture. Unremarkable soft tissues. Electronically authenticated by: GOLDY ORTIZ Date: 08/20/2023 12:42
[2023-08-20 11:57] LABS: BUN Creatinine Ratio 16.2; Calcium 9.4 mg/dL (8.5-10.1); Carbon Dioxide 27.8 mmol/L (21.0-32.0); Chloride 100 mmol/L (98-107); Estimated GFR (African America >60 (>=60); Estimated GFR (Non-African Ame >60 (>=60); Glucose 101 mg/dL (74-106); Potassium 3.8 mmol/L (3.5-5.1); Sodium 132 mmol/L (136-145)
== END 2023-08-20 11:22 | disposition home or self-care (01) ==
LOC: LAB 11:22
PROVIDERS: PCP Nurse Practitioner; Visit Provider Nurse Practitioner
DX: E87.1 Hypo-osmolality and hyponatremia (principal); M48.02 Spinal stenosis, cervical region; M50.321 Other cervical disc degeneration at C4-C5 level
CPT/HCPCS: 36415; 72040; 80048

== ENCOUNTER 2023-08-27 07:00 | Outpatient (RCR) | payer MEDICARE, SELFPAY | END 2023-11-24 16:07 | disposition home or self-care (01) | LOC: PT 07:00 | PROVIDERS: PCP Nurse Practitioner; Visit Provider Nurse Practitioner | DX: M48.02 Spinal stenosis, cervical region (principal) | CPT/HCPCS: 97010; 97012; 97014; 97110; 97140; 97163; G0283 ==

== ENCOUNTER 2023-09-10 07:39 | Outpatient (OUT) | payer MEDICARE, SELFPAY ==
--- NOTE | 2023-09-10 | PCN_ITS ---
CARDIAC STRESS TEST Requesting Physician: Procedure Date: 09/10/2023 This was a treadmill exercise stress test with myocardial perfusion imaging, performed at the [facility]. Informed consent was obtained. Intravenous line was secured. Baseline ECG was obtained. The patient exercised on the treadmill according to the Tavares protocol and reached stage 3. Total exercise time was 7 minutes and 10 seconds. The reason for termination of the test was fatigue and shortness of breath. Resting heart rate was 65 BPM and peak heart rate was 155 BPM, representing 107% of maximal predicted heart rate. Resting blood pressure was 116/72 and peak blood pressure was 162/78. Resting ECG showed sinus rhythm with right bundle branch block. ECG during exercise showed sinus rhythm with no ischemic ST changes. Final ECG was comparable to baseline. SUMMARY OF THE FINDINGS: 1. No evidence of ischemic ECG changes during treadmill exercise stress test. 2. 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 3. Normal resting blood pressure with adequate response to exercise. 4. Myocardial perfusion images will be reported separately. NADYAD
--- NOTE | 2023-09-10 07:30 | NM_ITS ---
Patient Name: SANDY GIBBS MR#: [id number] : 1945 Exam Date: 09/10/2023 Ordering Doctor: SUNITA Gurrola CNP RADIOLOGY REPORT PROCEDURE: NM HANNAH PERF SPECT REST STR COMPARISON: None. INDICATIONS: CHEST PAIN TECHNIQUE: Exam Description: Stress/Rest one day protocol gated SPECT Rest Imagin.4 mCi Tc-99m Cardiolite IV on 09/10/2023 Stress Imaging 30.1 mCi Tc-99m Cardiolite IV on 09/10/2023 Exercise Protocol: Tavares Heart Rate (bpm): Rest: 65 Max: 155 PMHR: 107 Blood Pressure: Rest: 116/72 Max: 162/78 Exercise Time: Minutes: 7 Seconds: 1 Stage Reached: Stage: 3 Mets 8.0 Symptoms: Rest and peak stress ECG findings were pending and the exercise portion of the study was pending per attending physician Dr. MARTIN . For more details please see separate cardiac stress test report. FINDINGS: QUALITY OF STUDY: Excellent. PERFUSION DEFECT: None. LOCATION: N/A SIZE: N/A. SEVERITY: N/A. TYPE: N/A. WALL MOTION: Normal. LV SIZE: Normal. 43 mL. TID / TCD: None; 0.6 LVEF: Normal. Calculated EF 87%. SUMMARY: Myocardial perfusion imaging study is NORMAL. CONCLUSION: 1. Normal nuclear medicine myocardial perfusion scan. Dictated by: Chuy Jefferson M.D. on 09/10/2023 at 15:26 Approved by: Chuy Jefferson M.D. on 09/10/2023 at 15:30
--- OUTSIDE RECORDS SUMMARY | 2023-09-10 07:42 | XMS_ITS | CCD ---
Author Name Unknown Address [address] [place] [address] Organization [facility] Care Team Providers Care Laborer Cheesemaking Name Role Phone JAYLIN Rahman Attending Provider Lorraine Rahman Attending Unavailable Lorraine Rahman Admitting Unavailable Lorraine Rahman Unavailable AICHHOLZ, PNEUMATIC TUBE FITTER CRUZ Attending Unavailable AICHHOLZ, PNEUMATIC TUBE FITTER CRUZ Consulting Unavailable AICHHOLZ, PNEUMATIC TUBE FITTER CRUZ Primary Care Unavailable AICHHOLZ, PNEUMATIC TUBE FITTER CRUZ Admitting Unavailable TIMMIS, DR GARCIA Admitting Unavailable TIMMIS, DR GARCIA Attending Unavailable TIMMIS, DR GARCIA Consulting Unavailable AICHHOLZ, PNEUMATIC TUBE FITTER CRUZ Primary Care Unavailable ZIEBER, DR CHUY House Consulting Unavailable AICHHOLZ, PNEUMATIC TUBE FITTER CRUZ Attending Unavailable AICHHOLZ, PNEUMATIC TUBE FITTER CRUZ Consulting Unavailable AICHHOLZ, PNEUMATIC TUBE FITTER CRUZ Primary Care Unavailable AICHHOLZ, PNEUMATIC TUBE FITTER CRUZ Admitting Unavailable ZIEBER, DR CHUY House Consulting Unavailable SHY DOMINGUEZ Consulting Unavailable NADERER, DR JEVON Solomon Attending Unavailable NADERER, DR JEVON Solomon Consulting Unavailable NADERER, DR JEVON Solomon Admitting Unavailable AICHHOLZ, PNEUMATIC TUBE FITTER CRUZ Primary Care Unavailable Antionette Ward Unavailable [...] 1.5 mg/ml oral solution (2 sources) Uncompetitive Z-upotcg-X-aspartat e Receptor Antagonist, Sigma-1 Agonist Start: 01-11-2023 take 10 mL by mouth every eight hours [place] DM 7.5-7.5 MG/5ML 10 mL Orally every [...] 11-28-2022 Calcium [Mass/Vol] 9.2 mg/dL Normal 8.5-10.1 [facility] Comment on above: Performed By: #### C A, CREA #### [facility] [address] [address] [address] Kalpesh Coon CREATININEon 11-28-2022 Creatinine [Mass/Vol] 0.78 mg/dL Normal 0.55-1.02 [facility] Comment on above: Performed By: #### C A, CREA #### [facility] [address] [address] [address] Kalpesh Coon EGFR-AF SPANISH >60 Normal >=60 [facility] Comment on above: Performed By: #### C A, CREA #### [facility] [address] [address] [address] Kalpesh Coon EGFR-NON AF SPANISH >60 Normal >=60 [facility] Comment on above: Performed By: #### C A, CREA #### [facility] [address] [address] [address] Kalpesh Coon COVID/FLU RT-PCRon 3 SARS-CoV-2 (COVID-19) RNA RENETTA+probe Ql (Unsp spec) Negative [employer] Other COVID/FLU RT-PCR Negative [employer] Other MG MAMM SCREEN 3D ASAF CADon 02-17-2023 MG MAMM SCREEN 3D ASAF CAD Patient: SANYD BHANDARI Exam Date: 09/26/2022 : 1945 Gender:F Ordering : SUNITA ANDERSON PNEUMATIC TUBE FITTER Admission #: [id number] Family : Order #: [id number] CLICK HERE TO VIEW EXAM RADIOLOGY REPORT [...] Treatments None Family Cancers None LOCATION: [facility] BREAST COMPOSITION: Heterogeneously dense,which may obscure [...] M.D. on 09/26/2022 at 11:57 Normal [facility] XR DEXA BONE DENSITYon 09-26 XR [...] SHY DOMINGUEZ Date: 2022-09-26 08:49 Normal [facility] MRI BRAIN WO W CONon 022 [...] CHUY JEFFERSON Date: 2022-07-31 07:22 Normal [facility] CREATININEon 07-30-2022 Creatinine [Mass/Vol] 0.67 mg/dL Normal 0.55-1.02 [facility] Comment on above: Performed By: #### C RONDA #### [facility] [address] [address] [address] Kalpesh Coon EGFR-AF SPANISH >60 Normal >=60 [facility] Comment on above: Performed By: #### C RONDA #### [facility] [address] [address] [address] Kalpesh Coon EGFR-NON AF SPANISH >60 Normal >=60 [facility] Comment on above: Performed By: #### C RONDA #### [facility] [address] [address] [address] Kalpesh Coon XR ankle LT min 3V*on 2021 XR ankle LT min 3V* [facility] [employer] Other XR ankle LT min 3V* [facility] [employer] Other XR ankle LT min 3V* [facility] [employer] Other XR ankle LT min 3V* RUTHIE Marshall [address] [employer] Other XR ankle LT min 3V* XRay Report [employer] Other XR ankle LT min 3V* Signed [employer] Other XR ankle LT min 3V* Patient: Sandy Bhandari MR#: [id number] [employer] Other XR ankle LT min 3V* 90 [employer] Other XR ankle LT min 3V* : 1945 Acct:[id number] [employer] Other XR ankle LT min 3V* Age/Sex: 77 / F ADM Date: 07/30/22 [employer] Other XR ankle LT min 3V* Loc: XDUCLY Room: Type: REG CLI [employer] Other XR ankle LT min 3V* Attending Dr: Lorraine MOSQUEDA [employer] Other XR ankle LT min 3V* Copies to: JAYLIN Kennedy [employer] Other XR ankle LT min 3V* Ordering Provider: JAYLIN Kennedy [employer] Other XR ankle LT min 3V* Date of Service: 07/30/22 [employer] Other XR ankle LT min 3V* XR/XR ankle LT min 3V*: Acute left ankle pain [employer] Other XR ankle LT min 3V* 3views leftankle [employer] Other XR ankle LT min 3V* COMPARISON:None [employer] Other XR ankle LT min 3V* HISTORY: Medial left ankle pain for one week. No injury [employer] Other XR ankle LT min 3V* No fracture, dislocation or focal soft tissue abnormality seen. No significant degeneration. [employer] Other XR ankle LT min 3V* XR/XR ankle LT min 3V* [employer] Other XR ankle LT min 3V* IMPRESSION: Unremarkable exam [employer] Other XR ankle LT min 3V* Impression dictated by: Eduardo Castaneda M.D.07/30/2022 11:50 AM [employer] Other XR ankle LT min 3V* Dictation Location: [facility]- [employer] Other XR ankle LT min 3V* Transcribed By: [facility] 07/30/22 1150 [employer] Other XR ankle LT min 3V* Dictated By: Eduardo Castaneda DO 07/30/22 1149 [employer] Other XR ankle LT min 3V* Signed By: [employer] Other XR ankle LT min 3V* 07/30/22 1150 [employer] Other XR ankle LT min 3V* [facility] [address] [place] [address] XRay Report Signed Patient: Sandy Bhandari MR#: [id number] 90 : 1945 Acct:[id number] Age/Sex: 77 / F ADM Date: 07/30/22 Loc: XDUCLY Room: Type: [facility] Attending Dr: Lorraine JIMC Copies to: JAYLIN [...] Eduardo Castaneda M.D.07/30/2022 11:50 AM Dictation Location: [place] [address] Transcribed By: [facility] 07/30/22 1150 Dictated By: Eduardo Castaneda DO 07/30/22 1149 Signed By: 07/30/22 1150 Normal [facility] CBC AUTO DIFFon 05-06-2022 BASO # 0.0 103/ul Normal 0.0-0.1 [facility] Comment on above: Performed By: #### C BC #### [facility] [address] [place] [address] Dr. Kalpesh Coon Basophils/100 WBC (Bld) 0.7 % Normal 0.2-2.0 [facility] Comment on above: Performed By: #### C BC #### [facility] [address] [place] [address] Dr. Kalpesh Coon EO # 0.1 103/ul Normal 0.0-0.7 [facility] Comment on above: Performed By: #### C BC #### [facility] [address] [address] [address] Kalpesh Coon Eosinophils/100 WBC (Bld) 2.3 % Normal 0.9-7.0 [facility] Comment on above: Performed By: #### C BC #### [facility] [address] [place] [address] Dr. Kalpesh Coon Erythrocyte distribution width (RBC) [Ratio] 13.7 % Normal 11.0-15.0 [facility] Comment on above: Performed By: #### C BC #### [facility] [address] [place] [address] Dr. Kalpesh Coon Hematocrit (Bld) [Volume fraction] 41.9 % Normal 36.0-48.0 [facility] Comment on above: Performed By: #### C BC #### [facility] [address] [place] [address] Dr. Kalpesh Coon Hemoglobin (Bld) [Mass/Vol] 13.8 g/dL Normal 12.0-16.0 [facility] Comment on above: Performed By: #### C BC #### [facility] [address] [place] [address] Dr. Kalpesh Coon IG # 0.01 10e3/ul Normal 0.00-0.03 [facility] Comment on above: Performed By: #### C BC #### [facility] [address] [place] [address] Dr. Kalpesh Coon IG % 0.2 % Normal 0.0-0.5 [facility] Comment on above: Performed By: #### C BC #### [facility] [address] [place] [address] Dr. Kalpesh Coon LYMPH # 1.5 103/ul Normal 1.2-3.8 [facility] Comment on above: Performed By: #### C BC #### [facility] [address] [place] [address] Dr. Kalpesh Coon Lymphocytes/100 WBC (Bld) 25.6 % Normal 20.5-60.0 [facility] Comment on above: Performed By: #### C BC #### [facility] [address] [place] [address] Dr. Kalpesh Coon MANUAL DIFF REQ NO Normal [facility] Comment on above: Performed By: #### C BC #### [facility] [address] [place] [address] Dr. Kalpesh Coon MCH (RBC) [Entitic mass] 31.3 pg Normal 26.7-34.0 [facility] Comment on above: Performed By: #### C BC #### [facility] [address] [place] [address] Dr. Kalpesh Coon MCHC (RBC) [Mass/Vol] 32.9 g/dL Normal 29.9-35.2 [facility] Comment on above: Performed By: #### C BC #### [facility] [address] [address] [address] Kalpesh Coon MCV (RBC) [Entitic vol] 95.0 fL Normal 81.0-99.0 [facility] Comment on above: Performed By: #### C BC #### [facility] [address] [address] [address] Kalpesh Coon MONO # 0.7 103/ul Normal 0.3-0.8 [facility] Comment on above: Performed By: #### C BC #### [facility] [address] [place] [address] Dr. Kalpesh Coon Monocytes/100 WBC (Bld) 10.8 % Normal 1.7-12.0 [facility] Comment on above: Performed By: #### C BC #### [facility] [address] [place] [address] Dr. Kalpesh Coon NEUT # 3.6 103/ul Normal 1.4-6.5 [facility] Comment on above: Performed By: #### C BC #### [facility] [address] [place] [address] Dr. Kalpesh Coon Neutrophils/100 WBC (Bld) 60.4 % Normal 43.0-75.0 [facility] Comment on above: Performed By: #### C BC #### [facility] [address] [place] [address] Dr. Kalpesh Coon Platelet mean volume (Bld) [Entitic vol] 11.8 fL Normal 9.5-13.5 [facility] Comment on above: Performed By: #### C BC #### [facility] [address] [place] [address] Dr. Kalpesh Coon PLT 181 103/ul Normal 150-450 [facility] Comment on above: Performed By: #### C BC #### [facility] [address] [place] [address] Dr. Kalpesh Coon RBC 4.41 106/ul Normal 4.20-5.40 [facility] Comment on above: Performed By: #### C BC #### [facility] [address] [address] [address] Kalpesh Coon WBC 6.0 103/ul Normal 4.0-11.0 [facility] Comment on above: Performed By: #### C BC #### [facility] [address] [place] [address] Dr. Kalpesh Coon LIPID PROFILEon 05-06-2022 CHOL-HDL RATIO NORM SEE BELOW Normal [facility] Comment on above: Result Comment: 3.3 - 4.4 LOW RISK 4.4 - 7.1 AVERAGE RISK 7.1 - 11.0 MODERATE RISK >11.0 HIGH RISK Performed By: #### L IPID, CMP #### [facility] [address] [place] [address] Dr. Kalpesh Coon Cholesterol [Mass/Vol] 214 mg/dL Critically high <=200 [facility] Comment on above: Performed By: #### L IPID, CMP #### [facility] [address] [place] [address] Dr. Kalpesh Coon Cholesterol in HDL [Mass/Vol] 63 mg/dL Critically high 40-60 [facility] Comment on above: Performed By: #### L IPID, CMP #### [facility] [address] [place] [address] Dr. Kalpesh Coon Cholesterol in LDL [Mass/Vol] 131.4 mg/dL Normal [facility] Comment on above: Performed By: #### L IPID, CMP #### [facility] [address] [place] [address] Dr. Kalpesh Coon Cholesterol.total/ Cholesterol in HDL [Mass ratio] 3.4 {ratio} Normal [facility] Comment on above: Performed By: #### L IPID, CMP #### [facility] [address] [place] [address] Dr. Kalpesh Coon HDL NORMAL > or = 60 mg/dl - LOW CARDIOVASCULAR RISK <40 mg/dl - HIGH CARDIOVASCULAR RISK Normal [facility] Comment on above: Performed By: #### L IPID, CMP #### [facility] [address] [place] [address] Dr. Kalpesh Coon LDL CALC NORMAL SEE BELOW Normal [facility] Comment on above: Result Comment: <100 mg/dl OPTIMAL 100 - 129 mg/dl NEAR OR ABOVE OPTIMAL 130 - 159 mg/dl BORDERLINE HIGH 160 - 189 mg/dl HIGH >190 mg/dl VERY HIGH Performed By: #### L IPID, CMP #### [facility] [address] [address] [address] Kalpesh Coon Triglyceride [Mass/Vol] 98 mg/dL Normal <=150 [facility] Comment on above: Performed By: #### L IPID, CMP #### [facility] [address] [address] [address] Kalpesh Coon VLDL CALC 19.6 mg/dL Normal [facility] Comment on above: Performed By: #### L IPID, CMP #### [facility] [address] [place] [address] Dr. Kalpesh Coon PROF 14(COMP METB)on 022 Albumin [Mass/Vol] 4.0 g/dL Normal 3.4-5.0 [facility] Comment on above: Performed By: #### L IPID, CMP #### [facility] [address] [address] [address] Kalpesh Coon Albumin/Globulin [Mass ratio] 1.2 {ratio} Normal [facility] Comment on above: Performed By: #### L IPID, CMP #### [facility] [address] [address] [address] Kalpesh Coon ALP [Catalytic activity/Vol] 63 U/L Normal 46-116 [facility] Comment on above: Performed By: #### L IPID, CMP #### [facility] [address] [address] [address] Kalpesh Coon ALT [Catalytic activity/Vol] 27 U/L Normal 14-59 [facility] Comment on above: Performed By: #### L IPID, CMP #### [facility] [address] [address] [address] Kalpesh Coon Anion gap [Moles/Vol] 14.4 mmol/L Normal [facility] Comment on above: Performed By: #### L IPID, CMP #### [facility] [address] [address] [address] Kalpesh Coon AST [Catalytic activity/Vol] 25 U/L Normal 15-37 [facility] Comment on above: Performed By: #### L IPID, CMP #### [facility] [address] [address] [address] Kalpesh Coon Bilirubin [Mass/Vol] 1.3 mg/dL Critically high 0.2-1.0 [facility] Comment on above: Performed By: #### L IPID, CMP #### [facility] [address] [address] [address] Kalpesh Coon Calcium [Mass/Vol] 9.2 mg/dL Normal 8.5-10.1 [facility] Comment on above: Performed By: #### L IPID, CMP #### [facility] [address] [place] [address] Dr. Kalpesh Coon Chloride [Moles/Vol] 101 mmol/L Normal 98-107 [facility] Comment on above: Performed By: #### L IPID, CMP #### [facility] [address] [address] [address] Kalpesh Coon CO2 [Moles/Vol] 23.8 mmol/L Normal 21.0-32.0 [facility] Comment on above: Performed By: #### L IPID, CMP #### [facility] [address] [address] [address] Kalpesh Coon Creatinine [Mass/Vol] 0.75 mg/dL Normal 0.55-1.02 [facility] Comment on above: Performed By: #### L IPID, CMP #### [facility] [address] [address] [address] Kalpesh Coon EGFR-AF SPANISH >60 Normal >=60 [facility] Comment on above: Performed By: #### L IPID, CMP #### [facility] [address] [address] [address] Kalpesh Coon EGFR-NON AF SPANISH >60 Normal >=60 [facility] Comment on above: Performed By: #### L IPID, CMP #### [facility] [address] [address] [address] Kalpesh Coon Globulin (S) [Mass/Vol] 3.3 g/dL Normal [facility] Comment on above: Performed By: #### L IPID, CMP #### [facility] [address] [address] [address] Kalpesh Coon Glucose [Mass/Vol] 94 mg/dL Normal 74-106 [facility] Comment on above: Performed By: #### L IPID, CMP #### [facility] [address] [address] [address] Kalpesh Coon Potassium [Moles/Vol] 4.2 mmol/L Normal 3.5-5.1 [facility] Comment on above: Performed By: #### L IPID, CMP #### [facility] [address] [place] [address] Dr. Kalpesh Coon Protein [Mass/Vol] 7.3 g/dL Normal 6.4-8.2 [facility] Comment on above: Performed By: #### L IPID, CMP #### [facility] [address] [place] [address] Dr. Kalpesh Coon Sodium [Moles/Vol] 135 mmol/L Critically low 136-145 [facility] Comment on above: Performed By: #### L IPID, CMP #### [facility] [address] [place] [address] Dr. Kalpesh Coon Urea nitrogen [Mass/Vol] 16.0 mg/dL Normal 7.0-18.0 [facility] Comment on above: Performed By: #### L IPID, CMP #### [facility] [address] [address] [address] Kalpesh Coon Urea nitrogen/Creatinin e [Mass ratio] 21.3 mg/mg Normal [facility] Comment on above: Performed By: #### L IPID, CMP #### [facility] [address] [place] [address] Dr. Kalpesh Coon VITAMIN D 25 OHon 05-06-2022 VIT D 25-OH 54.3 ng/mL Normal [facility] Comment on above: Performed By: #### V ITAD #### [facility] [address] [place] [address] Dr. Kalpesh Coon VIT D RANGES SEE BELOW Normal [facility] Comment on above: Result Comment: <20 ng/mL Vit D deficient 20 - <30 ng/mL Vit D insufficient 30 - 100 ng/mL Vit D sufficient >100 ng/mL Potential Toxicity Performed By: #### V ITAD #### [facility] [address] [address] [address] Kalpesh Coon Vital Signs Date Time Vital Sign Value Performing Clinician Facility 01-20-2023 09:00-0400 Body height 152.4 cm Tameka Velasco Other [facility] Other 01-20-2023 09:00-0400 Body mass index (BMI) [Ratio] 20.23 kg/m2 Tameka Velasco Other [facility] Other 01-20-2023 09:00-0400 Body temperature 96.4 [degF] Tameka Velasco Other [facility] Other 01-20-2023 09:00-0400 Body weight 46.99 kg Tameka Velasco Other [facility] Other 01-20-2023 09:00-0400 Diastolic blood pressure 75 mm[Hg] Tameka Velasco Other [facility] Other 01-20-2023 09:00-0400 Respiratory rate 18 /min Tameka Velasco Other [facility] Other 01-20-2023 09:00-0400 SaO2% (BldA) [Mass fraction] 99 % Tameka Velasco Other [facility] Other 01-20-2023 09:00-0400 Systolic blood pressure 129 mm[Hg] Tameka Velasco Other [facility] Other 01-11-2023 09:00-0400 Body height 152.4 cm Antionette Ward Other [facility] Other 01-11-2023 09:00-0400 Body mass index (BMI) [Ratio] 20.35 kg/m2 Antionette Ward Other [facility] Other 01-11-2023 09:00-0400 Body temperature 99.3 [degF] Antionette Ward Other [facility] Other 01-11-2023 09:00-0400 Body weight 47.27 kg Antionette Ward Other [facility] Other 01-11-2023 09:00-0400 Diastolic blood pressure 75 mm[Hg] Antionette Ward Other [facility] Other 01-11-2023 09:00-0400 Respiratory rate 18 /min Antionette Ward Other [facility] Other 01-11-2023 09:00-0400 SaO2% (BldA) [Mass fraction] 99 % Antionette Ward Other [facility] Other 01-11-2023 09:00-0400 Systolic blood pressure 114 mm[Hg] Antionette Ward Other [facility] Other 10-25-2022 10:05-0400 Body height 152.4 cm Lorraine Rahman Other [facility] Other 10-25-2022 10:05-0400 Body mass index (BMI) [Ratio] 20.31 kg/m2 Lorraine Lacey Other [facility] Other 10-25-2022 10:05-0400 Body temperature 99 [degF] Lorraine Lacey Other [facility] Other 10-25-2022 10:05-0400 Body weight 47.17 kg Lorraine Lacey Other [facility] Other 10-25-2022 10:05-0400 Respiratory rate 18 /min Lorraine Lacey Other [facility] Other 10-25-2022 10:05-0400 SaO2% (BldA) [Mass fraction] 97 % Lorraine Lacey Other [facility] Other 07-30-2022 12:05-0500 Body height 152.4 cm Lorraine Lacey Other [facility] Other 07-30-2022 12:05-0500 Body mass index (BMI) [Ratio] 20.31 kg/m2 Lorraine Lacey Other [facility] Other 07-30-2022 12:05-0500 Body weight 47.17 kg Lorraine Lacey Other [facility] Other 07-30-2022 12:05-0500 Diastolic blood pressure 70 mm[Hg] Lorraine Lacey Other [facility] Other 07-30-2022 12:05-0500 Respiratory rate 18 /min Lorraine Lacey Other [facility] Other 07-30-2022 12:05-0500 SaO2% (BldA) [Mass fraction] 100 % Lorraine Rahman Other [facility] Other 07-30-2022 12:05-0500 Systolic blood pressure 122 mm[Hg] Lorraine Rahman Other [facility] Other Encounters Encounter Date Encounter Type Care Provider Facility Start: 08-18-2023 End: 08-18-2023 ambulatory CRUZ JUSTIN Not Available Start: 01-20-2023 End: 01-20-2023 ambulatory Tameka Velasco Other [facility] Other Start: 01-20-2023 Office outpatient vi sit 15 minutes Tameka Velasco [facility] Start: 01-11-2023 End: 01-11-2023 ambulatory Antionette Ward Other [facility] Other Start: 01-11-2023 Office outpatient vi sit 25 minutes Antionette Ward [facility] Start: 11-27-2022 End: 11-28-[address] JEVON ONTIVEROS Facility:[facility] Start: 10-25-2022 End: 10-25-2022 ambulatory Lorraine Rahman Other [facility] Other Start: 10-25-2022 Office outpatient vi sit 15 minutes Lorraine Lacey [facility] Start: 09-26-2022 End: 09-27-2022 ambulatory SUNITA ANDERSON Facility:[facility] Start: 07-30-2022 Office outpatient ne w 20 minutes Lorraine Lacey [facility] Start: 07-30-2022 End: 07-30-2022 ambulatory Lorraine Lacey Facility:[facility] Start: 07-30-2022 End: 07-30-2022 ambulatory CHANGEOVER OPERATOR-C Lorraine Rahman Work Phone: [facility] Work Phone: Start: 07-30-2022 End: 07-30-2022 Patient encounter procedure CHANGEOVER OPERATOR-C Lorraine Lacey Work Phone: [facility] Start: 07-30-2022 End: 07-31-[address] RADHA KIM Facility:[facility] Start: 05-06-2022 End: 05-07-2022 ambulatory SUNITA CRUZ ANDERSON Facility:[facility] Procedures Date Procedure Procedure Detail Performing Clinician Start: 07-30-2022 X-ray of left ankle CHANGEOVER OPERATOR- C Lorraine Rahman Work Phone: Payers Date Payer Category Payer Self-pay [id number] Private Health Insurance [id number] 1945 Unknown [id number] 3 1945 Unknown [id number] 3 1945 Unknown [id number] 3 1945 Unknown [id number] 3 1945 Unknown [id number] 61 Private Health Insurance [employer] PFFS N on Pt [id number] Unknown [id number] 1 Social History Date Type Detail Facility Tobacco smoking status NHIS Unknown if ever smoked [facility] Work Phone: Start: 1945 Sex Assigned At Female F [facility] Sex Assigned At Sex Assigned At Bir th [facility] Other Evaluation note 01-20-2023 Note Date & [...] to 7 days, sooner if significantly worsening. [facility] Other Evaluation note 01-11-2023 Note Date & [...] will send in Rx of prednisone and [place] to use as directed. Encouraged supportive care [...] treatment plan. Patient left in stable condition. [facility] Other Evaluation note 10-25-2022 Note Date & [...] no improvement in 2 to 3 days. [facility] Other Evaluation note 07-30-2022 Note Date & [...] no improvement in 5 to 7 days [facility] Other Evaluation note Note Date & Type Note Facility Evaluation note No assessment information availa [facility] Work Phone: History general Narrative - Reported Note Date & Type Note Facility History general Narrative - Reported Type Medical History hyperlipidemia Medical History OAB (overactive bladder) Surgical History hysterectomy Surgical History D&C Surgical History tonsillectomy Hospitalization History See Above [employer] Other Chief Complaint and Reason for Visit [...] section and content) DATE CREATED AUTHOR 08/02/2022 [facility] DATE CREATED AUTHOR AUTHOR'S ORGANIZ ATION 11/28/2022 [facility] DATE CREATED AUTHOR AUTHOR'S ORGANIZ ATION 08/19/2023 [facility] EPIC REASON FOR VISIT (unrecogniz [...] BE BASED ON THE PRIMARY CLINICAL RECORDS. [employer] [facility]. provides no warranty or guarantee of the accuracy or completeness of information in this document.
== END 2023-09-10 07:40 | disposition home or self-care (01) ==
LOC: NM 07:40
PROVIDERS: PCP Nurse Practitioner; Visit Provider Nurse Practitioner
DX: R07.89 Other chest pain (principal)
CPT/HCPCS: 78452; 93017; A9500

== ENCOUNTER 2023-10-02 07:12 | Outpatient (OUT) | payer MEDICARE, SELFPAY ==
--- NOTE | 2023-10-02 07:15 | MM_ITS ---
Patient Name: SANDY GIBBS MR#: [id number] : 1945 Exam Date: 10/02/2023 Ordering Doctor: SUNITA Gurrola CNP RADIOLOGY REPORT PROCEDURE: MM TOMOSYNTHESIS SCREENING BI COMPARISON: MG MAMM SCREEN 3D ASAF CAD, 09/26/2022. MG MAMM SCREEN 3D ASAF CAD, 09/19/2021. MG MAMM SCREEN ASAF W CAD, 09/11/2020. MG MAMM ASAF SCRN W CAD DIG, 01/13/2012. INDICATIONS: Screening Calculator Name NCI Breast Cancer Risk Assessment Tool 5 Year Breast Cancer Risk 1.90% Lifetime Breast Cancer Risk 3.80% Personal Breast Cancer No Personal Ovarian Cancer No Treatments None Family Cancers None LOCATION: [facility] BREAST COMPOSITION: Heterogeneously dense,which may obscure small masses. FINDINGS: DIAGNOSTIC CATEGORY 2--BENIGN FINDING: RIGHT BREAST: No significant suspicious finding. No significant change has occurred. LEFT BREAST: No significant suspicious finding. Scattered benign-appearing nodules are present. No significant change has occurred. RECOMMENDATIONS: ROUTINE MAMMOGRAM AND CLINICAL EVALUATION IN 12 MONTHS. PLEASE NOTE: A NORMAL MAMMOGRAM DOES NOT EXCLUDE THE POSSIBILITY OF BREAST CANCER. A CLINICALLY SUSPICIOUS PALPABLE LUMP SHOULD BE BIOPSIED. Dictated by: Chuy Jefferson M.D. on 10/02/2023 at 14:13 Approved by: Chuy Jefferson M.D. on 10/02/2023 at 14:14
--- OUTSIDE RECORDS SUMMARY | 2023-10-02 07:15 | XMS_ITS | CCD ---
Author Name Unknown Address [email or web address] [facility] [address] [place] [address] Organization [facility] Care Team Providers Care Addiction Specialist Name Role Phone JAYLIN Rahman Attending Provider [phone] Lorraine Rahman Attending Unavailable Lorraine Rahman Admitting Unavailable Lorraine Rahman Unavailable AICHHOLZ, FLUID POWER MECHANIC KAROL Attending Unavailable AICHHOLZ, FLUID POWER MECHANIC KAROL Consulting Unavailable AICHHOLZ, FLUID POWER MECHANIC KAROL Primary Care Unavailable AICHHOLZ, FLUID POWER MECHANIC KAROL Admitting Unavailable TIMMIS, DR GARCIA Admitting Unavailable TIMMIS, DR GARCIA Attending Unavailable TIMMIS, DR GARCIA Consulting Unavailable AICHHOLZ, FLUID POWER MECHANIC KAROL Primary Care Unavailable ZIEBER, DR CHUY House Consulting Unavailable AICHHOLZ, FLUID POWER MECHANIC KAROL Attending Unavailable AICHHOLZ, FLUID POWER MECHANIC KAROL Consulting Unavailable AICHHOLZ, FLUID POWER MECHANIC KAROL Primary Care Unavailable AICHHOLZ, FLUID POWER MECHANIC KAROL Admitting Unavailable ZIEBWENDY, DR CHUY House Consulting Unavailable SHY DOMINGUEZ Consulting Unavailable RAMA, DR KIN Solomon Attending Unavailable RAMA, DR KIN Solomon Consulting Unavailable RAMA, DR KIN Solomon Admitting Unavailable AICHHOLZ, FLUID POWER MECHANIC KAROL Primary Care Unavailable Antionette Ward Unavailable Tameka Velasco Unavailable GIOVANA GURROLAA Attending Unavailable Kin Ontiveros MD Primary Care Provider Medications Current Medications Medication Drug Class(es) Dates [...] Aspir-81 Active atorvastatin 40 mg oral tablet (5 sources) HMG-CoA Reductase Inhibitor Start: 4 End: 4 take 1 tablet by mouth once daily atorvastatin (Lipitor) 40 MG tablet Indications: Mixed hyperlipidemia (CMS/HCC) Take 1 tablet (40 mg) by mouth 1 (one) time each day at the same time Take 40 mg by mouth 1 (one) time each day at the same time 30 tablet 1 09/08/2023 12/07/2023 Active take 1 tablet by kelli th every twenty-four hours Atorvastatin Calcium 40 MG 1 tablet Oral ly Once a day Active Calcium (4 sources) Phosphate Binder, Calcium Calcium + D Active calcium citrate 600 mg and vitamin D3 (Citrical & Minerals + Vit D) 600-200 MG-UNIT tablet (1 source) take 1 tablet by mouth every twelve hours calcium citrate 600 mg and vitamin D3 (Citrical & Minerals + Vit D) 600-200 MG-UNIT tablet Take 1 tablet by mouth every 12 (twelve) hours 0 Active fluticasone propionate 0.05 mg/actuat metered dose nasal spray (1 source) Corticosteroid Start: 10-26-19 23 take 2 spray(s) nasal route once daily Fluticasone Propionate 50 MCG/ACT 2 sprays Nasally Once a day for 14 day(s) Oct, Active 24 hr oxybutynin chloride 15 mg extended release oral tablet (5 sources) Cholinergic Muscarinic Antagonist Start: 09-08-19 24 End: 12-07-19 24 take 1 tablet by mouth every twenty-four hours in the morning oxybutynin XL (Ditropan-XL) 15 MG 24 hr tablet Indications: OAB (overactive bladder) Take 1 tablet (15 mg) by mouth in the morning. Take 15 mg by mouth in the morning.. 90 tablet 1 09/08/2023 12/07/2023 Active Oxybutynin Activ e Vitamin D (4 sources) Vitamin D Active Completed/Discontinued Medications Medication Drug Class(es) Dates Sig (Normalized) Sig (Original) dextromethorphan hydrobromide 1.5 mg/ml / pyrilamine maleate 1.5 mg/ml oral solution (2 sources) Uncompetitive H-emwaiu-L-aspartat e Receptor Antagonist, Sigma-1 Agonist Start: 01-11-2023 take 10 mL by mouth every eight hours [place] DM 7.5-7.5 MG/5ML 10 mL Orally every 8 hours for 5 days Jan, Not-Taking predniSONE 20 mg oral tablet (2 sources) Start: 01-11-2023 take 1 tablet by mouth every twelve hours prednisone 20 MG 1 tablet Orally BID for 5 Jan, Not-Taking Problems Active Problems Problem Classification Problem Date Documented Da te Episodic/Chronic Disorders of lipid metabolism (5 sources) Hyperlipidemia, unspecified; Translations: [Hyperlipidemia] Onset: 05-06-2022 Chronic Nonspecific chest pain (1 source) Chest pain; Translations: [Other chest pain] Onset: 08-18-2023 08-18-2023 Episodic Osteoporosis (6 sources) Age-related osteoporosis without current pathological fracture; Translations: [Senile osteoporosis] Onset: 10-01-2022 Chronic Other bone disease and musculoskeletal deformities (2 sources) Idiopathic scoliosis; Translations: [Infantile idiopathic scoliosis, site unspecified] Onset: 09-08-2023 09-08-2023 Chronic Other bone disease and musculoskeletal deformities (1 source) Osteopenia; Translations: [Other specified disorders of bone density and structure, unspecified site] Onset: 09-08-2023 09-08-2023 Episodic Other diseases of bladder and urethra (1 source) Overactive bladder; Translations: [Overactive bladder] Onset: 09-08-2023 09-08-2023 Chronic Other nervous system disorders (1 source) Loss of sense of smell; 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] Onset: 09-08-2023 09-08-2023 Episodic Other non-traumatic joint disorders (4 sources) Acute ankle pain; Translations: [Pain in left ankle and joints of left foot] Episodic Other non-traumatic joint disorders (1 source) Pain in left ankle and joints of left foot Episodic Other screening for suspected conditions (not mental disorders or infectious disease) (6 sources) Encounter for screening mammogram for malignant neoplasm of breast; Translations: [Patient encounter status] Onset: 09-26-2022 Episodic Other upper respiratory disease (1 source) Nasal congestion Episodic Other upper respiratory infections (3 sources) Acute sinusitis, unspecified; Translations: [Acute upper respiratory infection, unspecified] Episodic Residual codes; unclassified (1 source) Body mass index 20-24 - normal; Translations: [Body mass index (BMI) 20.0-20.9, adult] Onset: 08-18-2023 08-18-2023 Episodic Spondylosis; intervertebral disc disorders; other back problems (1 source) Spinal stenosis in cervical region; Translations: [Spinal stenosis, cervical region] Onset: 08-18-2023 08-18-2023 Episodic Unclassified (1 source) Pain in left [...] 11-28-2022 Calcium [Mass/Vol] 9.2 mg/dL Normal 8.5-10.1 [facility] Comment on above: Performed By: #### C Neha CREA #### [facility] [address] [place] [address] Dr. Kalpesh Coon CREATININEon 11-28-2022 Creatinine [Mass/Vol] 0.78 mg/dL Normal 0.55-1.02 [facility] Comment on above: Performed By: #### C Neha CREA #### [facility] [address] [place] [address] Dr. Kalpesh Coon EGFR-AF LEBANESE >60 Normal >=60 [facility] Comment on above: Performed By: #### C Neha CREA #### [facility] [address] [place] [address] Dr. Kalpesh Coon EGFR-NON AF LEBANESE >60 Normal >=60 [facility] Comment on above: Performed By: #### C Neha CREA #### [facility] [address] [place] [address] Dr. Kalpesh Coon COVID/FLU RT-PCRon 3 SARS-CoV-2 (COVID-19) RNA RENETTA+probe Ql (Unsp spec) Negative [facility] Other COVID/FLU RT-PCR Negative [facility] Other MG MAMM SCREEN 3D ASAF CADon 09-26-2022 MG MAMM SCREEN 3D ASAF CAD Patient: SANDY BHANDARI Exam Date: 09/26/2022 : 1945 Gender:F Ordering : SUNITA KAROL GURROLA [facility] Admission #: [id number] Family : Order #: [id number] CLICK HERE TO VIEW EXAM RADIOLOGY REPORT [...] Treatments None Family Cancers None LOCATION: [facility] BREAST COMPOSITION: Heterogeneously dense,which may obscure [...] M.D. on 09/26/2022 at 11:57 Normal [facility] XR DEXA BONE DENSITYon 09-26 XR [...] SHY DOMINGUEZ Date: 2022-09-26 08:49 Normal [facility] MRI BRAIN WO W CONon 022 [...] CHUY JEFFERSON Date: 2022-07-31 07:22 Normal [facility] CREATININEon 07-30-2022 Creatinine [Mass/Vol] 0.67 mg/dL Normal 0.55-1.02 [facility] Comment on above: Performed By: #### C RONDA #### [facility] [address] [address] [address] Kalpesh Coon EGFR-AF LEBANESE >60 Normal >=60 [facility] Comment on above: Performed By: #### C RONDA #### [facility] [address] [address] [address] Kalpesh Coon EGFR-NON AF LEBANESE >60 Normal >=60 [facility] Comment on above: Performed By: #### C RONDA #### [facility] [address] [address] [address] Kalpesh Coon XR ankle LT min 3V*on 2021 XR ankle LT min 3V* [facility] Other XR ankle LT min 3V* [facility] Other XR ankle LT min 3V* [address] [place] [address] [facility] Other XR ankle LT min 3V* [place] [address] [facility] Other XR ankle LT min 3V* XRay Report [facility] Other XR ankle LT min 3V* Signed [facility] Other XR ankle LT min 3V* Patient: Sandy Bhandari MR#: [id number] [facility] Other XR ankle LT min 3V* 90 [facility] Other XR ankle LT min 3V* : 1945 Acct:[id number] [facility] Other XR ankle LT min 3V* Age/Sex: 77 / F ADM Date: 07/30/22 [facility] Other XR ankle LT min 3V* Loc: XDUCLY Room: Type: REG CL [facility] Other XR ankle LT min 3V* Attending Dr: Lorraine MOSQUEDA [facility] Other XR ankle LT min 3V* Copies to: JAYLIN Kennedy [facility] Other XR ankle LT min 3V* Ordering Provider: JAYLIN Kennedy [facility] Other XR ankle LT min 3V* Date of Service: 07/30/22 [facility] Other XR ankle LT min 3V* XR/XR ankle LT min 3V*: Acute left ankle pain [facility] Other XR ankle LT min 3V* 3views leftankle [facility] Other XR ankle LT min 3V* COMPARISON:None [facility] Other XR ankle LT min 3V* HISTORY: Medial left ankle pain for one week. No injury [facility] Other XR ankle LT min 3V* No fracture, dislocation or focal soft tissue abnormality seen. No significant degeneration. [facility] Other XR ankle LT min 3V* XR/XR ankle LT min 3V* [facility] Other XR ankle LT min 3V* IMPRESSION: Unremarkable exam [facility] Other XR ankle LT min 3V* Impression dictated by: Eduardo Castaneda M.D.07/30/2022 11:50 AM [facility] Other XR ankle LT min 3V* Dictation Location: [place] [address] [facility] Other XR ankle LT min 3V* Transcribed By: KATLIN 07/30/22 1150 [facility] Other XR ankle LT min 3V* Dictated By: Eduardo Castaneda DO 07/30/22 1149 [facility] Other XR ankle LT min 3V* Signed By: [facility] Other XR ankle LT min 3V* 07/30/22 1159 [facility] Other XR ankle LT min 3V* [facility] Main [place] [address] [place] [address] XRay Report Signed Patient: Sandy Bhandari MR#: [id number] 90 : 1945 Acct:[id number] Age/Sex: 77 / F ADM Date: 07/30/22 Loc: XDUCLY Room: Type: [facility] Attending Dr: Lorraine MOSQUEDA Copies to: JAYLIN [...] Eduardo Castaneda M.D.07/30/2022 11:50 AM Dictation Location: [place] [address] Transcribed By: [facility] 07/30/22 1150 Dictated By: Eduardo Castaneda DO 07/30/22 1149 Signed By: 07/30/22 1150 Normal [facility] CBC AUTO DIFFon 05-06-2022 BASO # 0.0 103/ul Normal 0.0-0.1 [facility] Comment on above: Performed By: #### C BC #### [facility] [address] [place] [address] Dr. Kalpesh Coon Basophils/100 WBC (Bld) 0.7 % Normal 0.2-2.0 [facility] Comment on above: Performed By: #### C BC #### [facility] [address] [address] [address] Kalpesh Coon EO # 0.1 103/ul Normal 0.0-0.7 [facility] Comment on above: Performed By: #### C BC #### [facility] [address] [address] [address] Kalpesh Coon Eosinophils/100 WBC (Bld) 2.3 % Normal 0.9-7.0 [facility] Comment on above: Performed By: #### C BC #### [facility] [address] [place] [address] Dr. Kalpesh Coon Erythrocyte distribution width (RBC) [Ratio] 13.7 % Normal 11.0-15.0 [facility] Comment on above: Performed By: #### C BC #### [facility] [address] [place] [address] Dr. Kalpesh Coon Hematocrit (Bld) [Volume fraction] 41.9 % Normal 36.0-48.0 [facility] Comment on above: Performed By: #### C BC #### [facility] [address] [place] [address] Dr. Kalpesh Coon Hemoglobin (Bld) [Mass/Vol] 13.8 g/dL Normal 12.0-16.0 [facility] Comment on above: Performed By: #### C BC #### [facility] [address] [place] [address] Dr. Kalpesh Coon IG # 0.01 10e3/ul Normal 0.00-0.03 [facility] Comment on above: Performed By: #### C BC #### [facility] [address] [place] [address] Dr. Kalpesh Coon IG % 0.2 % Normal 0.0-0.5 [facility] Comment on above: Performed By: #### C BC #### [facility] [address] [place] [address] Dr. Kalpesh Coon LYMPH # 1.5 103/ul Normal 1.2-3.8 [facility] Comment on above: Performed By: #### C BC #### [facility] [address] [place] [address] Dr. Kalpesh Coon Lymphocytes/100 WBC (Bld) 25.6 % Normal 20.5-60.0 [facility] Comment on above: Performed By: #### C BC #### [facility] [address] [place] [address] Dr. Kalpesh Coon MANUAL DIFF REQ NO Normal [facility] Comment on above: Performed By: #### C BC #### [facility] [address] [place] [address] Dr. Kalpesh Coon MCH (RBC) [Entitic mass] 31.3 pg Normal 26.7-34.0 [facility] Comment on above: Performed By: #### C BC #### [facility] [address] [place] [address] Dr. Kalpesh Coon MCHC (RBC) [Mass/Vol] 32.9 g/dL Normal 29.9-35.2 [facility] Comment on above: Performed By: #### C BC #### [facility] [address] [place] [address] Dr. Kalpesh Coon MCV (RBC) [Entitic vol] 95.0 fL Normal 81.0-99.0 [facility] Comment on above: Performed By: #### C BC #### [facility] [address] [place] [address] Dr. Kalpesh Coon MONO # 0.7 103/ul Normal 0.3-0.8 [facility] Comment on above: Performed By: #### C BC #### [facility] [address] [place] [address] Dr. Kalpesh Coon Monocytes/100 WBC (Bld) 10.8 % Normal 1.7-12.0 [facility] Comment on above: Performed By: #### C BC #### [facility] [address] [place] [address] Dr. Kalpesh Coon NEUT # 3.6 103/ul Normal 1.4-6.5 [facility] Comment on above: Performed By: #### C BC #### [facility] [address] [place] [address] Dr. Kalpesh Coon Neutrophils/100 WBC (Bld) 60.4 % Normal 43.0-75.0 [facility] Comment on above: Performed By: #### C BC #### [facility] [address] [place] [address] Dr. Kalpesh Coon Platelet mean volume (Bld) [Entitic vol] 11.8 fL Normal 9.5-13.5 [facility] Comment on above: Performed By: #### C BC #### [facility] [address] [place] [address] Dr. Kalpesh Coon PLT 181 103/ul Normal 150-450 [facility] Comment on above: Performed By: #### C BC #### [facility] [address] [address] [address] Kalpesh Coon RBC 4.41 106/ul Normal 4.20-5.40 [facility] Comment on above: Performed By: #### C BC #### [facility] [address] [address] [address] Kalpesh Coon WBC 6.0 103/ul Normal 4.0-11.0 [facility] Comment on above: Performed By: #### C BC #### [facility] [address] [address] [address] Klapesh Coon LIPID PROFILEon 05-06-2022 CHOL-HDL RATIO NORM SEE BELOW Normal [facility] Comment on above: Result Comment: 3.3 - 4.4 LOW RISK 4.4 - 7.1 AVERAGE RISK 7.1 - 11.0 MODERATE RISK >11.0 HIGH RISK Performed By: #### L IPID, CMP #### [facility] [address] [place] [address] Dr. Kalpesh Coon Cholesterol [Mass/Vol] 214 mg/dL Critically high <=200 [facility] Comment on above: Performed By: #### L IPID, CMP #### [facility] [address] [address] [address] Kalpesh Coon Cholesterol in HDL [Mass/Vol] 63 mg/dL Critically high 40-60 [facility] Comment on above: Performed By: #### L IPID, CMP #### [facility] [address] [place] [address] Dr. Kalpesh Coon Cholesterol in LDL [Mass/Vol] 131.4 mg/dL Normal [facility] Comment on above: Performed By: #### L IPID, CMP #### [facility] [address] [place] [address] Dr. Kalpesh Coon Cholesterol.total/ Cholesterol in HDL [Mass ratio] 3.4 {ratio} Normal [facility] Comment on above: Performed By: #### L IPID, CMP #### [facility] [address] [place] [address] Dr. Kalpesh Coon HDL NORMAL > or = 60 mg/dl - LOW CARDIOVASCULAR RISK <40 mg/dl - HIGH CARDIOVASCULAR RISK Normal [facility] Comment on above: Performed By: #### L IPID, CMP #### [facility] [address] [place] [address] Dr. Kalpesh Coon LDL CALC NORMAL SEE BELOW Normal [facility] Comment on above: Result Comment: <100 mg/dl OPTIMAL 100 - 129 mg/dl NEAR OR ABOVE OPTIMAL 130 - 159 mg/dl BORDERLINE HIGH 160 - 189 mg/dl HIGH >190 mg/dl VERY HIGH Performed By: #### L IPID, CMP #### [facility] [address] [place] [address] Dr. Kalpesh Coon Triglyceride [Mass/Vol] 98 mg/dL Normal <=150 [facility] Comment on above: Performed By: #### L IPID, CMP #### [facility] [address] [place] [address] Dr. Kalpesh Coon VLDL CALC 19.6 mg/dL Normal [facility] Comment on above: Performed By: #### L IPID, CMP #### [facility] [address] [place] [address] Dr. Kalpesh Coon PROF 14(COMP METB)on 022 Albumin [Mass/Vol] 4.0 g/dL Normal 3.4-5.0 [facility] Comment on above: Performed By: #### L IPID, CMP #### [facility] [address] [place] [address] Dr. aKlpesh Coon Albumin/Globulin [Mass ratio] 1.2 {ratio} Normal [facility] Comment on above: Performed By: #### L IPID, CMP #### [facility] [address] [place] [address] Dr. Kalpesh Coon ALP [Catalytic activity/Vol] 63 U/L Normal 46-116 [facility] Comment on above: Performed By: #### L IPID, CMP #### [facility] [address] [place] [address] Dr. Kalpesh Coon ALT [Catalytic activity/Vol] 27 U/L Normal 14-59 [facility] Comment on above: Performed By: #### L IPID, CMP #### [facility] [address] [place] [address] Dr. Kalpesh Coon Anion gap [Moles/Vol] 14.4 mmol/L Normal [facility] Comment on above: Performed By: #### L IPID, CMP #### [facility] [address] [place] [address] Dr. Kalpesh Coon AST [Catalytic activity/Vol] 25 U/L Normal 15-37 [facility] Comment on above: Performed By: #### L IPID, CMP #### [facility] [address] [place] [address] Dr. Kalpesh Coon Bilirubin [Mass/Vol] 1.3 mg/dL Critically high 0.2-1.0 [facility] Comment on above: Performed By: #### L IPID, CMP #### [facility] [address] [place] [address] Dr. Kalpesh Coon Calcium [Mass/Vol] 9.2 mg/dL Normal 8.5-10.1 [facility] Comment on above: Performed By: #### L IPID, CMP #### [facility] [address] [place] [address] Dr. Kalpesh Coon Chloride [Moles/Vol] 101 mmol/L Normal 98-107 [facility] Comment on above: Performed By: #### L IPID, CMP #### [facility] [address] [place] [address] Dr. Kalpesh Coon CO2 [Moles/Vol] 23.8 mmol/L Normal 21.0-32.0 [facility] Comment on above: Performed By: #### L IPID, CMP #### [facility] [address] [place] [address] Dr. Kalpesh Coon Creatinine [Mass/Vol] 0.75 mg/dL Normal 0.55-1.02 [facility] Comment on above: Performed By: #### L IPID, CMP #### [facility] [address] [place], [place] [id number] Dr. Kalpesh Coon EGFR-AF LEBANESE >60 Normal >=60 [facility] Comment on above: Performed By: #### L IPID, CMP #### [facility] [address] [address] [address] Kalpesh Coon EGFR-NON AF LEBANESE >60 Normal >=60 [facility] Comment on above: Performed By: #### L IPID, CMP #### [facility] [address] [place] [address] Dr. Kalpesh Coon Globulin (S) [Mass/Vol] 3.3 g/dL Normal [facility] Comment on above: Performed By: #### L IPID, CMP #### [facility] [address] [place] [address] Dr. Kalpesh Coon Glucose [Mass/Vol] 94 mg/dL Normal 74-106 [facility] Comment on above: Performed By: #### L IPID, CMP #### [facility] [address] [place] [address] Dr. Kalpesh Coon Potassium [Moles/Vol] 4.2 mmol/L Normal 3.5-5.1 [facility] Comment on above: Performed By: #### L IPID, CMP #### [facility] [address] [place] [address] Dr. Kalpesh Coon Protein [Mass/Vol] 7.3 g/dL Normal 6.4-8.2 [facility] Comment on above: Performed By: #### L IPID, CMP #### [facility] [address] [place] [address] Dr. Kalpesh Coon Sodium [Moles/Vol] 135 mmol/L Critically low 136-145 [facility] Comment on above: Performed By: #### L IPID, CMP #### [facility] [address] [place] [address] Dr. Kalpesh Coon Urea nitrogen [Mass/Vol] 16.0 mg/dL Normal 7.0-18.0 [facility] Comment on above: Performed By: #### L IPID, CMP #### [facility] [address] [place], [place] [id number] Dr. Kalpesh Coon Urea nitrogen/Creatinin e [Mass ratio] 21.3 mg/mg Normal [facility] Comment on above: Performed By: #### L IPID, CMP #### [facility] [address] [place] [address] Dr. Kalpesh Coon VITAMIN D 25 OHon 05-06-2022 VIT D 25-OH 54.3 ng/mL Normal [facility] Comment on above: Performed By: #### V ITAD #### [facility] [address] [place] [address] Dr. Kalpesh Coon VIT D RANGES SEE BELOW Normal [facility] Comment on above: Result Comment: <20 ng/mL Vit D deficient 20 - <30 ng/mL Vit D insufficient 30 - 100 ng/mL Vit D sufficient >100 ng/mL Potential Toxicity Performed By: #### V ITAD #### [facility] [address] [place] [address] Dr. Kalpesh Coon Vital Signs Date Time Vital Sign Value Performing Clinician Facility 01-20-2023 09:00-0400 Body height 152.4 cm Tameka Velasco Other [facility] Other 01-20-2023 09:00-0400 Body mass index (BMI) [Ratio] 20.23 kg/m2 Tameka Velasco Other [facility] Other 01-20-2023 09:00-0400 Body temperature 96.4 [degF] Tameka Velasco Other [facility] Other 01-20-2023 09:00-0400 Body weight 46.99 kg Tameka Velasco Other [facility] Other 01-20-2023 09:00-0400 Diastolic blood pressure 75 mm[Hg] Tameka Velasco Other [facility] Other 01-20-2023 09:00-0400 Respiratory rate 18 /min Tameka Krista Other [facility] Other 01-20-2023 09:00-0400 SaO2% (BldA) [Mass fraction] 99 % Tameka Martinezley Other [facility] Other 01-20-2023 09:00-0400 Systolic blood pressure 129 mm[Hg] Tameka Krista Other [facility] Other 01-11-2023 09:00-0400 Body height 152.4 cm Antionette Ward Other [facility] Other 01-11-2023 09:00-0400 Body mass index (BMI) [Ratio] 20.35 kg/m2 Antionette Ward Other [facility] Other 01-11-2023 09:00-0400 Body temperature 99.3 [degF] Antionette Ward Other [facility] Other 01-11-2023 09:00-0400 Body weight 47.27 kg Antionette Ward Other [facility] Other 01-11-2023 09:00-0400 Diastolic blood pressure 75 mm[Hg] Antionette Ward Other [facility] Other 01-11-2023 09:00-0400 Respiratory rate 18 /min Antionette Ward Other [facility] Other 01-11-2023 09:00-0400 SaO2% (BldA) [Mass fraction] 99 % Antionette Ward Other [facility] Other 01-11-2023 09:00-0400 Systolic blood pressure 114 mm[Hg] Antionette Ward Other [facility] Other 10-25-2022 10:05-0400 Body height 152.4 cm Lorraine Rahman Other [facility] Other 10-25-2022 10:05-0400 Body mass index (BMI) [Ratio] 20.31 kg/m2 Lorraine Lacey Other [facility] Other 10-25-2022 10:05-0400 Body temperature 99 [degF] Lorraine Davismond Other [facility] Other 10-25-2022 10:05-0400 Body weight 47.17 kg Lorraine Lacey Other [facility] Other 10-25-2022 10:05-0400 Respiratory rate 18 /min Lorraine Davismond Other [facility] Other 10-25-2022 10:05-0400 SaO2% (BldA) [Mass fraction] 97 % Lorraine Rahman Other [facility] Other 07-30-2022 12:05-0500 Body height 152.4 cm Lorraine Lacey Other [facility] Other 07-30-2022 12:05-0500 Body mass index (BMI) [Ratio] 20.31 kg/m2 Lorraine Lacey Other [facility] Other 07-30-2022 12:05-0500 Body weight 47.17 kg Lorraine Lacey Other [facility] Other 07-30-2022 12:05-0500 Diastolic blood pressure 70 mm[Hg] Lorraine Lacey Other [facility] Other 07-30-2022 12:05-0500 Respiratory rate 18 /min Lorraine Lacey Other [facility] Other 07-30-2022 12:05-0500 SaO2% (BldA) [Mass fraction] 100 % Lorraine Lacey Other [facility] Other 07-30-2022 12:05-0500 Systolic blood pressure 122 mm[Hg] Lorraine Lacey Other [facility] Other Encounters Encounter Date Encounter Type Care Provider Facility Start: 09-16-2023 Telephone encounter Karol Veronica clifford [facility] Work Phone: [facility] Start: 08-18-2023 End: 08-18-2023 ambulatory KAROL JUSTIN Not Available Start: 01-20-2023 End: 01-20-2023 ambulatory Tameka Velasco Other [facility] Other Start: 01-20-2023 Office outpatient vi sit 15 minutes Tameka Velasco [facility] Start: 01-11-2023 End: 01-11-2023 ambulatory Antionette Ward Other [facility] Other Start: 01-11-2023 Office outpatient vi sit 25 minutes Antionette Ward [facility] Start: 11-27-2022 End: 11-28-[address] KIN ONTIVEROS Facility: Start: 10-25-2022 End: 10-25-2022 ambulatory Lorraine Rahman Other [facility] Other Start: 10-25-2022 Office outpatient vi sit 15 minutes Lorraine Rahman [facility] Start: 09-26-2022 End: 09-27-2022 ambulatory SUNITA GURROLA Facility:[facility] Start: 07-30-2022 Office outpatient ne w 20 minutes Lorraine Lacey [facility] Start: 07-30-2022 End: 07-30-2022 ambulatory Lorraine Lacey Facility:[facility] Start: 07-30-2022 End: 07-30-2022 ambulatory [facility] Lorraine Lacey Work Phone: [facility] Work Phone: Start: 07-30-2022 End: 07-30-2022 Patient encounter procedure [facility] Lorraine Lacey Work Phone: [facility] Start: 07-30-2022 End: 07-31-[address] RADHA KIM Facility:[facility] Start: 05-06-2022 End: 05-07-2022 ambulatory SUNITA GURROLA Facility:[facility] Procedures Date Procedure Procedure Detail Performing Clinician Start: 07-30-2022 X-ray of left ankle [facility] C Lorraine Davismond Work Phone: Plan of Treatment Date Care Activity Detail Author Start: 06-02-2024 Medicare Annual Wellness (AWV) Medicare Annual Wellness (AWV) [facility] Start: 09-16-2023 End: 11-14-2024 MG Breast - bilateral Screening Bilateral screening mammogram Imaging Routine Encounter for screening mammogram for malignant neoplasm of breast Expected: 09/16/2023 (Approximate), Expires: 11/14/2024 [facility] Work Phone: Comment on above: Expected: 09/16/2023 (Approximate), Expires: 11/14/2024 Start: 04-17-2021 Pneumococcal Vaccine : 65+ Years (2 - PCV) Pneumococcal Vaccine: 65+ Years (2 - PCV) [facility] Healthcare Payers Date Payer Category Payer Medicare AETNA MEDICARE A DVANTAGE AETNA MEDICARE REPLACEMENT [id number] 2022-Present [address] [place] [address] [id number] 2022 Self-pay [id number] 1959 Private Health Insurance [id number] 1945 Unknown [id number] 1945 Unknown [id number] 1945 Unknown [id number] 1945 Unknown [id number] 1945 Unknown [id number] Private Health Insurance Aetna Mcr PFFS Non Pt [id number] Unknown [id number] Social History Date Type Detail [facility] Work Phone: Start: 1945 Sex Assigned At Female F [facility] Start: 08-18-2023 [facility] [employer] Other Start: 08-18-2023 [facility] Start: 08-18-2023 History of Social function [facility] Start: 1945 Sex Assigned At Not on file [facility] Telephone encounter Note 09-16-2023 Telephone Encounter - Karol Gurrola NP - 09/16/2023 10:39 AM EST Note Date & Type Note Facility 09-16-2023 Telephone encount er Note Mammogram order [facility] Healthcare Note 09-16-2023 Telephone Encounter - Karol Gurrola NP - 09/16/2023 10:39 AM EST Note Date & Type Note Facility 09-16-2023 Miscellaneous Notes Formattin g of this note might be different from the original. Mammogram order documented in this encounter [facility] Healthcare Evaluation note 01-20-2023 Note Date & Type [...] to 7 days, sooner if significantly worsening. [facility] Other Evaluation note 01-11-2023 Note Date & [...] will send in Rx of prednisone and [place] to use as directed. Encouraged supportive care [...] treatment plan. Patient left in stable condition. [facility] Other Evaluation note 10-25-2022 Note Date & [...] no improvement in 2 to 3 days. [facility] Other Evaluation note 07-30-2022 Note Date & [...] no improvement in 5 to 7 days [facility] Other Evaluation note Note Date & Type Note Facility Evaluation note No assessment information [facility] Work Phone: Evaluation note Note Date & Type Note Facility Evaluation note Diagnosis Encounter for screening mammogram for malignant neoplasm of breast- Primary documented in this encounter [facility] History general Narrative - Reported Note Date & Type Note Facility History general Narrative - Reported Type Medical History hyperlipidemia Medical History OAB (overactive bladder) Surgical History hysterectomy Surgical History D&C Surgical History tonsillectomy Hospitalization History See Above [facility] Other Chief Complaint and Reason for Visit Chief Complaint M25.572 Advance Directives Advance Directive Response Recorded Date/ Time Advance Directives No September 11:06am Summary Purpose Family History No Family History Records FoundNo Family History Records FoundNo Family History Records Found Additional Source Comments Care Teams (unrecognized sec tion and content) Team Status: Inactive Member Role Status Dates Lorraine Rahman NP-C Attending Provider Active Addiction Specialist Relationship Specialty Start Date End Date Kin Ontiveros MD PCP - General Family Medicine 02/05/23 Goals (unrecognized section and content) Goals may be documented in a n alternate sectionNo InformationNo InformationNo InformationNo Information INFORMATION SOURCE (unrecogn ized section and content) DATE CREATED AUTHOR 08/02/2022 [facility] DATE CREATED AUTHOR AUTHOR'S ORGANIZ ATION 11/28/2022 [facility] DATE CREATED AUTHOR AUTHOR'S ORGANIZ ATION 08/19/2023 [facility] dical Specialists EPIC REASON FOR VISIT [...] BE BASED ON THE PRIMARY CLINICAL RECORDS. [facility] [employer] [facility]. provides no warranty or guarantee of the accuracy or completeness of information in this document.
== END 2023-10-02 07:13 | disposition home or self-care (01) ==
LOC: MAMMO 07:12
PROVIDERS: PCP Nurse Practitioner; Visit Provider Nurse Practitioner
DX: Z12.31 Encounter for screening mammogram for malignant neoplasm of breast (principal)
CPT/HCPCS: 77063; 77067

== ENCOUNTER 2024-01-18 09:16 | Emergency (ER) | payer MEDICARE, SELFPAY ==
[2024-01-18 09:20] VITALS: BP 160/93; PULSE 70; TEMP 36.4; O2SAT 99; BMI 20.5
--- NOTE | 2024-01-18 09:28 | XR_ITS ---
The [address] [address] Patient Name: SANDY GIBBS MRN: [id number] date: 1945 Sex: F Assigned Patient Location: ER Current Patient Location: ER Accession/Order Number: [id number] Exam Date: 01/18/2024 09:44 Report Date: 01/18/2024 10:00 At the request of: SALLY URBAN Procedure: XR finger RT min 2V EXAM: XR finger RT min 2V HISTORY: pain, right index COMPARISON: None TECHNIQUE: 3 views of the right index finger were obtained. FINDINGS: Moderate degenerative changes about the DIP joint of the index finger. No obvious focal lytic or sclerotic lesion. No obvious osteomyelitis. No definite acute fracture or dislocation. Moderate soft tissue swelling of the distal portion of the index finger with mild to moderate swelling otherwise noted. Incidental note is made of [id number]-[id number] degenerative change about the interphalangeal joint of the thumb with moderate degenerative changes at the first metacarpocarpal joint. [id number]-[id number] degenerative change at the joint space between the navicular and trapezium. Moderate degenerative changes at the third metacarpophalangeal joint with associated mild anterior subluxation. XR/XR finger RT min 2V IMPRESSION: Right index finger study demonstrates degenerative changes as described. Soft tissue swelling as noted. No definite acute fracture or dislocation. No obvious osteomyelitis. Follow-up as needed. Electronically authenticated by: BENNY NGUYEN Date: 01/18/2024 10:00
--- NOTE | 2024-01-18 09:28 | ED.GENADUL1 ---
HPI HPI - General Adult General Chief complaint: Skin/Abscess/Foreign Body Stated complaint: UPPER EXTREMITY PAIN Time Seen by Provider: 01/18/24 09:28 Source: patient Mode of arrival: walk-in Limitations: no limitations History of Present Illness HPI narrative: Patient is a 78-year-old female who is presenting to the ER today with chief complaint of left index finger significant paronychia to the radial aspect of her left index finger. The nail is raised, there is significant amount of pus, swelling, redness noted to the distal aspect of the right index finger. Patient has redness that is coming and spreading on the volar aspect of the right index finger to the right PIP joint. Patient has normal range of motion of her PIP joint with no pain. Patient has limited range of motion to the right DIP joint of the right index finger secondary to swelling. Patient had no recent canker sores, cold sores, no other oral infection this could be a herpetic thuan. No herpes infections that patient has. Patient has not had this before. Patient 1 day thought she had chills 3 to 4 days ago. Patient symptoms started on Thursday or Thursday of noticing some pain to the distal right index finger. Patient stated the swelling started progressively getting worse since Thursday. Patient finally came in today secondary to pain and swelling. No other infections, rashes, no other acute complaints. Patient is not diabetic. All systems are negative except as noted/marked. All systems reviewed and otherwise negative. Nurses note and vital signs reviewed and patient is not hypoxic. General: The patient appears well and in no apparent distress. Patient is resting comfortably on cart. Patient is not toxic, lethargic, or listless Skin: Warm, dry, no pallor noted. There is no rash noted. No petechiae, purpura. Head: Normocephalic, atraumatic Eye: Normal conjunctiva, no drainage, EOMI. PERRL Ears, Nose, Mouth, and Throat: oral mucosa is moist. Nares patent. Mouth without vesicles. Cardiovascular: Regular Rate and Rhythm, no murmur, gallop, rub Respiratory: Patient is in no distress, no accessory muscle use, lungs are clear to auscultation, no wheezing, rales or rhonchi Musculoskeletal: Patient has full range of motion of all of the extremities except to the right index finger. Patient pictures were sent through secure text to ashutosh Meehan software validation technician, patient has significant paronychia to the distal aspect of the right index finger, radial aspect where she has a significant paronychia. Patient has mild redness to the volar aspect of the right index finger, spreading to the right PIP joint. No streaking going past the right PIP joint. Patient has some elevation of the right fingernail. Patient has swelling moderate to significant to the distal aspect the right index finger from the DIP joint to the distal right index finger. Severe tenderness to palpation to the area. Patient has had no drainage from the area. No signs of obvious felon or herpetic thuan, the swelling pain is extending to the fat pad from the right distal lateral aspect of the nail with an extending paronychia. Otherwise no motor, sensory, or focal neurological deficits Neurological: A&O x4, normal speech Psychiatric: Cooperative Related Data Home Medications ?Medication ?Instructions ?Recorded ?Confirmed atorvastatin 40 mg tablet 40 mg PO Q24H 08/18/23 08/18/23 oxybutynin chloride 15 mg 15 mg PO Q24H 08/18/23 08/18/23 tablet,extended release 24 hr Previous Rx's ?Medication ?Instructions ?Recorded cephalexin 500 mg capsule 500 mg PO Q8H 7 days #21 caps 01/18/24 doxycycline hyclate 100 mg tablet 100 mg PO BID 10 days #20 tabs 01/18/24 hydrocodone 5 mg-acetaminophen 325 0.5 tab PO Q4H PRN pain 5 days #7 01/18/24 mg tablet tabs Allergies Allergy/AdvReac Type Severity Reaction Status Date / Time No Known Drug Allergies Allergy Verified 08/18/23 10:19 Opioid HPI Opioid Management Most Recent Opioid Data: Last Pain Scale 7 01/18/24 09:20 Exam Constitutional Vital Signs, click to edit/add: Last Vital Signs Temp 97.6 F 01/18/24 09:20 Pulse 70 01/18/24 09:20 Resp 20 01/18/24 09:20 BP 160/93 H 01/18/24 09:20 Pulse Ox 99 01/18/24 09:20 O2 Del Method Room Air 01/18/24 09:20 Course Vital Signs Vital signs: Vital Signs Temperature 97.6 F 01/18/24 09:20 Pulse Rate 70 01/18/24 09:20 Respiratory Rate 20 01/18/24 09:20 Blood Pressure 160/93 H 01/18/24 09:20 Pulse Oximetry 99 01/18/24 09:20 Oxygen Delivery Method Room Air 01/18/24 09:20 Temperature 97.6 F 01/18/24 09:20 Pulse Rate 70 01/18/24 09:20 Respiratory Rate 20 01/18/24 09:20 Blood Pressure 160/93 H 01/18/24 09:20 Pulse Oximetry 99 01/18/24 09:20 Oxygen Delivery Method Room Air 01/18/24 09:20 Medical Decision Making MDM Narrative Medical decision making narrative: I spoke to Dr. Dawson, Orthopedic surgery software validation technician. He stated that this patient did not need to go to the operating room, that we could open up, drain the paronychia I and do a Good washout of the area and he will follow-up with the patient in the office. Patient was in the ER a lengthy amount of time secondary to ER volume, multiple blameless Apologies were given. See procedure note below. Patient had a moderate amount of pus and blood that was Expressed from the significant left index finger paronychia. Patient was sent home with prescription for [place] to use as needed for pain, also was placed on Keflex and doxycycline as recommended by Dr. Dawson. Patient will have follow-up this week for reevaluation. Patient was extremely helpful and thankful and understanding of her length in the ER today. X-ray showed no obvious signs of osteomyelitis. See the official x-ray report. Procedure note: Left index finger paronychia Incision and drainage: A single layer of iodine was used to prep the area. Drapes were placed to ensure isolation of the abscess and surrounding skin tissue. A Digital finger block was performed with 5:1 ratio of 0.5% bupivacaine and 1% lidocaine. Incision was made with an 11 blade to Underneath the skin fold at the base of the fingernail To raise the skin and also small incision was made to raise the skin to the right radial base aspect of the fingernail as well to elevate the skin to help with drainage. , significant amount purulent material was expressed. Cultures were obtained and sent to the lab. The cavity was irrigated with three 60 cc syringe of normal saline And then 10 separate 10 cc syringes of normal saline with a splash guard was used for thorough washing of the paronychia.. A dry sterile dressing was placed. Patient tolerated the procedure well and will be discharged with Keflex, Doxycycline and a short course of analgesic medications. Patient is to follow-up in the next 2-[address] Dawson to have area evaluated. Discharge Plan Discharge Stand Alone Forms: Portal Instructions Chief Complaint: Skin/Abscess/Foreign Body Clinical Impression: Paronychia of right index finger Patient Disposition: Home, Self-Care Time of Disposition Decision: 13:02 Condition: Fair Prescriptions / Home Meds: New cephalexin 500 mg capsule 500 mg PO Q8H 7 Days Qty: 21 0RF doxycycline hyclate 100 mg tablet 100 mg PO BID 10 Days Qty: 20 0RF hydrocodone-acetaminophen 5-325 mg tablet 0.5 tab PO Q4H PRN (Reason: pain) 5 Days Qty: 7 0RF Rx Instructions: 0.5-1 tab every 4 hours as needed for moderate to severe pain. These are the correct SIG No Action atorvastatin 40 mg tablet 40 mg PO Q24H oxybutynin chloride 15 mg tablet extended release 24hr 15 mg PO Q24H Print Language: Romansh Instructions: Paronychia (ED) Additional Instructions: Do warm soaks with your finger every hour to help increase inflammation, swelling, and if there is drainage that occurs that is good. Keep dry dressing on to help absorb any type of drainage. Take both antibiotics as prescribed. Call Dr. Dawson today to arrange follow-up appointment in the next several days for reevaluation. Follow-up with PCP as needed. Referrals: Karol Gurrola NP [Primary Care Provider] - 1 week Discharge Date/Time: 01/18/24 13:30
--- OUTSIDE RECORDS SUMMARY | 2024-01-18 09:57 | XMS_ITS | CCD ---
Author Organization [facility] Inform ion Partnership [facility] Care Team Providers Care Entertainment Centre Manager Name Role Phone JAYLIN Rahman Attending Provider Lorraine Rahman Attending Unavailable Lorraine Rahman Admitting Unavailable Lorraine Rahman Unavailable AICHHOLZ, CATALYST SUPERVISOR KAROL Attending Unavailable AICHHOLZ, CATALYST SUPERVISOR KAROL Consulting Unavailable AICHHOLZ, CATALYST SUPERVISOR KAROL Primary Care Unavailable AICHHOLZ, CATALYST SUPERVISOR KAROL Admitting Unavailable TIMMIS, DR GARCIA Admitting Unavailable TIMMIS, DR GARCIA Attending Unavailable TIMMIS, DR GARCIA Consulting Unavailable AICHHOLZ, CATALYST SUPERVISOR KAROL Primary Care Unavailable ZIEBER, DR CHUY House Consulting Unavailable AICHHOLZ, CATALYST SUPERVISOR KAROL Attending Unavailable AICHHOLZ, CATALYST SUPERVISOR KAROL Consulting Unavailable AICHHOLZ, CATALYST SUPERVISOR KAROL Primary Care Unavailable AICHHOLZ, CATALYST SUPERVISOR KAROL Admitting Unavailable ZIEBER, DR CHUY House Consulting Unavailable SHY DOMINGUEZ Consulting Unavailable NADSISI, DR KIN Solomon Attending Unavailable RAMA, DR KIN Solomon Consulting Unavailable RAMA, DR KIN Solomon Admitting Unavailable AICHHOLZ, CATALYST SUPERVISOR KAROL Primary Care Unavailable Antionette Ward Unavailable Tameka Velasco Unavailable JUSTIN, KAROL Attending Unavailable Kin Ontiveros MD Primary Care [...] 1.5 mg/ml oral solution (2 sources) Uncompetitive P-krwpmv-I-aspartat e Receptor Antagonist, Sigma-1 Agonist Start: 01-11-2023 take 10 mL by mouth every eight hours [place] DM 7.5-7.5 MG/5ML 10 mL Orally every [...] 11-28-2022 Calcium [Mass/Vol] 9.2 mg/dL Normal 8.5-10.1 [facility] Comment on above: Performed By: #### C A, CREA #### [facility] [address] [place] [address] Dr. Kalpesh Coon CREATININEon 11-28-2022 Creatinine [Mass/Vol] 0.78 mg/dL Normal 0.55-1.02 [facility] Comment on above: Performed By: #### C A, CREA #### [facility] [address] [place] [address] Dr. Kalpesh Coon EGFR-AF SALVADOREAN >60 Normal >=60 [facility] Comment on above: Performed By: #### C A, CREA #### [facility] [address] [place] [address] Dr. Kalpesh Coon EGFR-NON AF SALVADOREAN >60 Normal >=60 [facility] Comment on above: Performed By: #### C A, CREA #### [facility] [address] [place] [address] Dr. Kalpesh Coon COVID/FLU RT-PCRon 3 SARS-CoV-2 (COVID-19) RNA RENETTA+probe Ql (Unsp spec) Negative [facility] Other COVID/FLU RT-PCR Negative [facility] Other MG MAMM SCREEN 3D ASAF CADon 09-26-2022 MG MAMM SCREEN 3D ASAF CAD Patient: SANDY BHANDARI Exam Date: 09/26/2022 : 1945 Gender:F Ordering : SUNITA KAROL CATINAVidalRICHARDMisael [facility] Admission #: [id number] Family : Order #: [id number] CLICK HERE TO VIEW EXAM RADIOLOGY REPORT [...] Treatments None Family Cancers None LOCATION: [facility] BREAST COMPOSITION: Heterogeneously dense,which may obscure small [...] M.D. on 09/26/2022 at 11:57 Normal [facility] XR DEXA BONE DENSITYon 09-26 XR DEXA [...] SHY DOMINGUEZ Date: 2022-09-26 08:49 Normal [facility] MRI BRAIN WO W CONon 022 MRI [...] CHUY JEFFERSON Date: 2022-07-31 07:22 Normal [facility] CREATININEon 07-30-2022 Creatinine [Mass/Vol] 0.67 mg/dL Normal 0.55-1.02 [facility] Comment on above: Performed By: #### C RONDA #### [facility] [address] [address] [address] Kalpesh Coon EGFR-AF SALVADOREAN >60 Normal >=60 [facility] Comment on above: Performed By: #### C RONDA #### [facility] [address] [place], [place] [address] Dr. Kalpesh Coon EGFR-NON AF SALVADOREAN >60 Normal >=60 [facility] Comment on above: Performed By: #### C RONDA #### [facility] [address] [address] [address] Kalpesh Coon XR ankle LT min 3V*on 2021 XR ankle LT min 3V* [facility] Other XR ankle LT min 3V* [facility] Other XR ankle LT min 3V* [address] [place] [address] [facility] Other XR ankle LT min 3V* [place] [address] [facility] Other XR ankle LT min 3V* XRay Report [facility] Other XR ankle LT min 3V* Signed [facility] Other XR ankle LT min 3V* Patient: Sandy Bhandari MR#: [id number] [facility] Other XR ankle LT min 3V* 90 [facility] Other XR ankle LT min 3V* : 1945 Acct:[id number] [facility] Other XR ankle LT min 3V* Age/Sex: 77 / F ADM Date: 07/30/22 [facility] Other XR ankle LT min 3V* Loc: XDUCLY Room: Type: REG CLI [facility] Other XR ankle LT min 3V* Attending Dr: Lorraine MOSQUEDA [facility] Other XR ankle LT min 3V* Copies to: JAYLIN Kennedy [facility] Other XR ankle LT min 3V* Ordering Provider: JAYLIN Kennedy [facility] Other XR ankle LT min 3V* Date of Service: 07/30/22 [facility] Other XR ankle LT min 3V* XR/XR ankle LT min 3V*: Acute left ankle pain [facility] Other XR ankle LT min 3V* 3views leftankle [facility] Other XR ankle LT min 3V* COMPARISON:None [facility] Other XR ankle LT min 3V* HISTORY: Medial left ankle pain for one week. No injury [facility] Other XR ankle LT min 3V* No fracture, dislocation or focal soft tissue abnormality seen. No significant degeneration. [facility] Other XR ankle LT min 3V* XR/XR ankle LT min 3V* [facility] Other XR ankle LT min 3V* IMPRESSION: Unremarkable exam [facility] Other XR ankle LT min 3V* Impression dictated by: Eduardo Castaneda M.D.07/30/2022 11:50 AM [facility] Other XR ankle LT min 3V* Dictation Location: [place] [address] [facility] Other XR ankle LT min 3V* Transcribed By: KATLIN 07/30/22 1150 [facility] Other XR ankle LT min 3V* Dictated By: Eduardo Castaneda DO 07/30/22 1149 [facility] Other XR ankle LT min 3V* Signed By: [facility] Other XR ankle LT min 3V* 07/30/22 1150 [facility] Other XR ankle LT min 3V* [facility] [address] [place], [place] [id number] XRay Report Signed Patient: Sandy Bhandari MR#: [id number] 90 : 1945 Acct:[id number] Age/Sex: 77 / F ADM Date: 07/30/22 Loc: XDUCLY Room: Type: [facility] Attending Dr: Lorraine MOSQUEDA Copies to: JAYLIN [...] Eduardo Castaneda M.D.07/30/2022 11:50 AM Dictation Location: [place] [address] Transcribed By: [facility] 07/30/22 1150 Dictated By: Eduardo Castaneda DO 07/30/22 1149 Signed By: 07/30/22 1150 Normal [facility] CBC AUTO DIFFon 05-06-2022 BASO # 0.0 103/ul Normal 0.0-0.1 [facility] Comment on above: Performed By: #### C BC #### [facility] [address] [place] [address] Dr. Kalpesh Coon Basophils/100 WBC (Bld) 0.7 % Normal 0.2-2.0 [facility] Comment on above: Performed By: #### C BC #### [facility] [address] [place] [address] Dr. Kalpesh Coon EO # 0.1 103/ul Normal 0.0-0.7 [facility] Comment on above: Performed By: #### C BC #### [facility] [address] [place] [address] Dr. Kalpesh Coon Eosinophils/100 WBC (Bld) 2.3 % Normal 0.9-7.0 [facility] Comment on above: Performed By: #### C BC #### [facility] [address] [place] [address] Dr. Kalpesh Coon Erythrocyte distribution width (RBC) [Ratio] 13.7 % Normal 11.0-15.0 [facility] Comment on above: Performed By: #### C BC #### [facility] [address] [place] [address] Dr. Kalpesh Coon Hematocrit (Bld) [Volume fraction] 41.9 % Normal 36.0-48.0 [facility] Comment on above: Performed By: #### C BC #### [facility] [address] [place] [address] Dr. Kalpesh Coon Hemoglobin (Bld) [Mass/Vol] 13.8 g/dL Normal 12.0-16.0 [facility] Comment on above: Performed By: #### C BC #### [facility] [address] [place] [address] Dr. Kalpesh Coon IG # 0.01 10e3/ul Normal 0.00-0.03 [facility] Comment on above: Performed By: #### C BC #### [facility] [address] [place] [address] Dr. Kalpesh Coon IG % 0.2 % Normal 0.0-0.5 [facility] Comment on above: Performed By: #### C BC #### [facility] [address] [place] [address] Dr. Kalpesh Coon LYMPH # 1.5 103/ul Normal 1.2-3.8 [facility] Comment on above: Performed By: #### C BC #### [facility] [address] [place] [address] Dr. Kalpesh Coon Lymphocytes/100 WBC (Bld) 25.6 % Normal 20.5-60.0 [facility] Comment on above: Performed By: #### C BC #### [facility] [address] [place] [address] Dr. Kalpesh Coon MANUAL DIFF REQ NO Normal [facility] Comment on above: Performed By: #### C BC #### [facility] [address] [place] [address] Dr. Kalpesh Coon MCH (RBC) [Entitic mass] 31.3 pg Normal 26.7-34.0 [facility] Comment on above: Performed By: #### C BC #### [facility] [address] [address] [address] Kalpesh Coon MCHC (RBC) [Mass/Vol] 32.9 g/dL Normal 29.9-35.2 [facility] Comment on above: Performed By: #### C BC #### [facility] [address] [place] [address] Dr. Kalpesh Coon MCV (RBC) [Entitic vol] 95.0 fL Normal 81.0-99.0 [facility] Comment on above: Performed By: #### C BC #### [facility] [address] [place] [address] Dr. Kalpesh Coon MONO # 0.7 103/ul Normal 0.3-0.8 [facility] Comment on above: Performed By: #### C BC #### [facility] [address] [place] [address] Dr. Kalpesh Coon Monocytes/100 WBC (Bld) 10.8 % Normal 1.7-12.0 [facility] Comment on above: Performed By: #### C BC #### [facility] [address] [place] [address] Dr. Kalpesh Coon NEUT # 3.6 103/ul Normal 1.4-6.5 [facility] Comment on above: Performed By: #### C BC #### [facility] [address] [place] [address] Dr. Kalpesh Coon Neutrophils/100 WBC (Bld) 60.4 % Normal 43.0-75.0 [facility] Comment on above: Performed By: #### C BC #### [facility] [address] [place] [address] Dr. Kalpesh Coon Platelet mean volume (Bld) [Entitic vol] 11.8 fL Normal 9.5-13.5 [facility] Comment on above: Performed By: #### C BC #### [facility] [address] [place] [address] Dr. Kalpesh Coon PLT 181 103/ul Normal 150-450 [facility] Comment on above: Performed By: #### C BC #### [facility] [address] [address] [address] Kalpesh Coon RBC 4.41 106/ul Normal 4.20-5.40 [facility] Comment on above: Performed By: #### C BC #### [facility] [address] [address] [address] Kalpesh Coon WBC 6.0 103/ul Normal 4.0-11.0 [facility] Comment on above: Performed By: #### C BC #### [facility] [address] [address] [address] Kalpesh Coon LIPID PROFILEon 05-06-2022 CHOL-HDL RATIO NORM SEE BELOW Normal [facility] Comment on above: Result Comment: 3.3 - 4.4 LOW RISK 4.4 - 7.1 AVERAGE RISK 7.1 - 11.0 MODERATE RISK >11.0 HIGH RISK Performed By: #### L IPID, CMP #### [facility] [address] [place] [address] Dr. Kalpesh Coon Cholesterol [Mass/Vol] 214 mg/dL Critically high <=200 [facility] Comment on above: Performed By: #### L IPID, CMP #### [facility] [address] [place] [address] Dr. Kalpesh Coon Cholesterol in HDL [Mass/Vol] 63 mg/dL Critically high 40-60 [facility] Comment on above: Performed By: #### L IPID, CMP #### [facility] [address] [address] [address] Kalpesh Coon Cholesterol in LDL [Mass/Vol] 131.4 mg/dL Normal [facility] Comment on above: Performed By: #### L IPID, CMP #### [facility] [address] [place] [address] Dr. Kalpesh Coon Cholesterol.total/ Cholesterol in HDL [Mass ratio] 3.4 {ratio} Normal [facility] Comment on above: Performed By: #### L IPID, CMP #### [facility] [address] [place] [address] Dr. Kalpesh Coon HDL NORMAL > or = 60 mg/dl - LOW CARDIOVASCULAR RISK <40 mg/dl - HIGH CARDIOVASCULAR RISK Normal [facility] Comment on above: Performed By: #### L IPID, CMP #### [facility] [address] [address] [address] Kalpesh Coon LDL CALC NORMAL SEE BELOW Normal [facility] Comment on above: Result Comment: <100 mg/dl OPTIMAL 100 - 129 mg/dl NEAR OR ABOVE OPTIMAL 130 - 159 mg/dl BORDERLINE HIGH 160 - 189 mg/dl HIGH >190 mg/dl VERY HIGH Performed By: #### L IPID, CMP #### [facility] [address] [address] [address] Kalpesh Coon Triglyceride [Mass/Vol] 98 mg/dL Normal <=150 [facility] Comment on above: Performed By: #### L IPID, CMP #### [facility] [address] [address] [address] Kalpesh Coon VLDL CALC 19.6 mg/dL Normal [facility] Comment on above: Performed By: #### L IPID, CMP #### [facility] [address] [address] [address] Kalpesh Coon PROF 14(COMP METB)on 022 Albumin [Mass/Vol] 4.0 g/dL Normal 3.4-5.0 [facility] Comment on above: Performed By: #### L IPID, CMP #### [facility] [address] [address] [address] Kalpesh Coon Albumin/Globulin [Mass ratio] 1.2 {ratio} Normal [facility] Comment on above: Performed By: #### L IPID, CMP #### [facility] [address] [address] [address] Kalpesh Coon ALP [Catalytic activity/Vol] 63 U/L Normal 46-116 [facility] Comment on above: Performed By: #### L IPID, CMP #### [facility] [address] [address] [address] Kalpesh Coon ALT [Catalytic activity/Vol] 27 U/L Normal 14-59 [facility] Comment on above: Performed By: #### L IPID, CMP #### [facility] [address] [address] [address] Kalpesh Coon Anion gap [Moles/Vol] 14.4 mmol/L Normal [facility] Comment on above: Performed By: #### L IPID, CMP #### [facility] [address] [address] [address] Kalepsh Coon AST [Catalytic activity/Vol] 25 U/L Normal 15-37 [facility] Comment on above: Performed By: #### L IPID, CMP #### [facility] [address] [address] [address] Kalpesh Coon Bilirubin [Mass/Vol] 1.3 mg/dL Critically high 0.2-1.0 [facility] Comment on above: Performed By: #### L IPID, CMP #### [facility] [address] [place] [address] Dr. Kalpesh Coon Calcium [Mass/Vol] 9.2 mg/dL Normal 8.5-10.1 [facility] Comment on above: Performed By: #### L IPID, CMP #### [facility] [address] [address] [address] Kalpesh Coon Chloride [Moles/Vol] 101 mmol/L Normal 98-107 [facility] Comment on above: Performed By: #### L IPID, CMP #### [facility] [address] [address] [address] Kalpesh Coon CO2 [Moles/Vol] 23.8 mmol/L Normal 21.0-32.0 [facility] Comment on above: Performed By: #### L IPID, CMP #### [facility] [address] [address] [address] Kalpesh Coon Creatinine [Mass/Vol] 0.75 mg/dL Normal 0.55-1.02 [facility] Comment on above: Performed By: #### L IPID, CMP #### [facility] [address] [address] [address] Kalpesh Coon EGFR-AF SALVADOREAN >60 Normal >=60 [facility] Comment on above: Performed By: #### L IPID, CMP #### [facility] [address] [address] [address] Kalpesh Coon EGFR-NON AF SALVADOREAN >60 Normal >=60 [facility] Comment on above: Performed By: #### L IPID, CMP #### [facility] [address] [address] [address] Kalpesh Coon Globulin (S) [Mass/Vol] 3.3 g/dL Normal [facility] Comment on above: Performed By: #### L IPID, CMP #### [facility] [address] [address] [address] Kalpesh Coon Glucose [Mass/Vol] 94 mg/dL Normal 74-106 [facility] Comment on above: Performed By: #### L IPID, CMP #### [facility] [address] [place] [address] Dr. Kalpesh Coon Potassium [Moles/Vol] 4.2 mmol/L Normal 3.5-5.1 [facility] Comment on above: Performed By: #### L IPID, CMP #### [facility] [address] [place] [address] Dr. Kalpesh Coon Protein [Mass/Vol] 7.3 g/dL Normal 6.4-8.2 [facility] Comment on above: Performed By: #### L IPID, CMP #### [facility] [address] [place] [address] Dr. Kalpesh Coon Sodium [Moles/Vol] 135 mmol/L Critically low 136-145 [facility] Comment on above: Performed By: #### L IPID, CMP #### [facility] [address] [place] [address] Dr. Kalpesh Coon Urea nitrogen [Mass/Vol] 16.0 mg/dL Normal 7.0-18.0 [facility] Comment on above: Performed By: #### L IPID, CMP #### [facility] [address] [place] [address] Dr. Kalpesh Coon Urea nitrogen/Creatinin e [Mass ratio] 21.3 mg/mg Normal [facility] Comment on above: Performed By: #### L IPID, CMP #### [facility] [address] [place] [address] Dr. Kalpesh Coon VITAMIN D 25 OHon 05-06-2022 VIT D 25-OH 54.3 ng/mL Normal [facility] Comment on above: Performed By: #### V ITAD #### [facility] [address] [place] [address] Dr. Kalpesh Coon VIT D RANGES SEE BELOW Normal [facility] Comment on above: Result Comment: <20 ng/mL Vit D deficient 20 - <30 ng/mL Vit D insufficient 30 - 100 ng/mL Vit D sufficient >100 ng/mL Potential Toxicity Performed By: #### V ITAD #### [facility] [address] [place] [address] Dr. Kalpesh Coon Vital Signs Date Time Vital Sign Value Performing Clinician Facility 01-20-2023 09:00-0400 Body height 152.4 cm Tameka Velasco Other [facility] Other 01-20-2023 09:00-0400 Body mass index (BMI) [Ratio] 20.23 kg/m2 Tameka Velasco Other [facility] Other 01-20-2023 09:00-0400 Body temperature 96.4 [degF] Tameka Velasco Other [facility] Other 01-20-2023 09:00-0400 Body weight 46.99 kg Tameka Velasco Other [facility] Other 01-20-2023 09:00-0400 Diastolic blood pressure 75 mm[Hg] Tameka Velasco Other [facility] Other 01-20-2023 09:00-0400 Respiratory rate 18 /min Tameka Velasco Other [facility] Other 01-20-2023 09:00-0400 SaO2% (BldA) [Mass fraction] 99 % Tameka Krista Other [facility] Other 01-20-2023 09:00-0400 Systolic blood pressure 129 mm[Hg] Tameka Velasco Other [facility] Other 01-11-2023 09:00-0400 Body height 152.4 cm Antionette Ward Other [facility] Other 01-11-2023 09:00-0400 Body mass index (BMI) [Ratio] 20.35 kg/m2 Antionette Ward Other [facility] Other 01-11-2023 09:00-0400 Body temperature 99.3 [degF] Antionette Ward Other [facility] Other 01-11-2023 09:00-0400 Body weight 47.27 kg Antionette Ward Other [facility] Other 01-11-2023 09:00-0400 Diastolic blood pressure 75 mm[Hg] Antionette Ward Other [facility] Other 01-11-2023 09:00-0400 Respiratory rate 18 /min Antionette Ward Other [facility] Other 01-11-2023 09:00-0400 SaO2% (BldA) [Mass fraction] 99 % Antionette Ward Other [facility] Other 01-11-2023 09:00-0400 Systolic blood pressure 114 mm[Hg] Antionette Ward Other [facility] Other 10-25-2022 10:05-0400 Body height 152.4 cm Lorraine Davismond Other [facility] Other 10-25-2022 10:05-0400 Body mass index (BMI) [Ratio] 20.31 kg/m2 Lorraine Lacey Other [facility] Other 10-25-2022 10:05-0400 Body temperature 99 [degF] Lorraine Lacey Other [facility] Other 10-25-2022 10:05-0400 Body weight 47.17 kg Lorraine Lacey Other [facility] Other 10-25-2022 10:05-0400 Respiratory rate 18 /min Lorraine Lacey Other [facility] Other 10-25-2022 10:05-0400 SaO2% (BldA) [Mass fraction] 97 % Lorraine Lacey Other [facility] Other 07-30-2022 12:05-0500 Body height 152.4 cm Lorraine Lacey Other [facility] Other 07-30-2022 12:05-0500 Body mass index (BMI) [Ratio] 20.31 kg/m2 Lorraine Lacey Other [facility] Other 07-30-2022 12:05-0500 Body weight 47.17 kg Lorraine Lacey Other [facility] Other 07-30-2022 12:05-0500 Diastolic blood pressure 70 mm[Hg] Lorraine Lacey Other [facility] Other 07-30-2022 12:05-0500 Respiratory rate 18 /min Lorraine Lacey Other [facility] Other 07-30-2022 12:05-0500 SaO2% (BldA) [Mass fraction] 100 % Lorraine Lacey Other [facility] Other 07-30-2022 12:05-0500 Systolic blood pressure 122 mm[Hg] Lorraine Lacey Other [facility] Other Encounters Encounter Date Encounter Type Care Provider Facility Start: 09-16-2023 Telephone encounter Karol Veronica clifford [employer]ICER Work Phone: [facility] Start: 08-18-2023 End: 08-18-2023 ambulatory KAROL JUSTIN Not Available Start: 01-20-2023 End: 01-20-2023 ambulatory Tameka Velasco Other [facility] Other Start: 01-20-2023 Office outpatient vi sit 15 minutes Tameka Velasco [facility] Start: 01-11-2023 End: 01-11-2023 ambulatory Antionette Ward Other [facility] Other Start: 01-11-2023 Office outpatient vi sit 25 minutes Antionette Ward [facility] Start: 11-27-2022 End: 11-28-[address] KIN ONTIVEROS Facility:[facility] Start: 10-25-2022 End: 10-25-2022 ambulatory Lorraine Rahman Other [facility] Other Start: 10-25-2022 Office outpatient vi sit 15 minutes Lorraine Rahman [facility] Start: 09-26-2022 End: 09-27-2022 ambulatory SUNITA MENDEZRICHARDMisael Facility:[facility] Start: 07-30-2022 Office outpatient ne w 20 minutes Lorraine Rahman [facility] Start: 07-30-2022 End: 07-30-2022 ambulatory Lorraine Rahman Facility:[facility] Start: 07-30-2022 End: 07-30-2022 ambulatory [employer] OFFICER-C Lorraine Lacey Work Phone: [facility] Work Phone: Start: 07-30-2022 End: 07-30-2022 Patient encounter procedure [employer] OFFICER-C Lorraine Rahman Work Phone: [facility] Start: 07-30-2022 End: 07-31-2022 ambulatory DR RADHA KIM Facility:[facility] Start: 05-06-2022 End: 05-07-2022 ambulatory SUNITA KAROL CATINAVidalPATRIA Facility: Procedures Date Procedure Procedure Detail Performing Clinician Start: 07-30-2022 X-ray of left ankle [facility] [employer] OFFICER- C Lorraine Rahman Work Phone: Plan of Treatment Date Care Activity Detail Author Start: 06-02-2024 Medicare Annual Wellness (AWV) Medicare Annual Wellness (AWV) [facility] Start: 09-16-2023 End: 11-14-2024 MG Breast - bilateral Screening Bilateral screening mammogram Imaging Routine Encounter for screening mammogram for malignant neoplasm of breast Expected: 09/16/2023 (Approximate), Expires: 11/14/2024 [facility] Work Phone: Comment on above: Expected: 09/16/2023 (Approximate), Expires: 11/14/2024 Start: 04-17-2021 Pneumococcal Vaccine : 65+ Years (2 - PCV) Pneumococcal Vaccine: 65+ Years (2 - PCV) [facility] Payers Date Payer Category Payer Medicare AETNA MEDICARE A DVANTAGE AETNA MEDICARE REPLACEMENT [id number] 2022-Present [address] [place] [id number] 2022 Self-pay [id number] 1959 Private Health Insurance [id number] 1945 Unknown [id number] 1945 Unknown [id number] 1945 Unknown [id number] 1945 Unknown [id number] 1945 Unknown [id number] Private Health Insurance Aetna Mcr PFFS Non Pt [id number] Unknown [id number] Social History Date Type Detail Facility [facility] Work Phone: Start: 1945 Sex Assigned At Female [facility] Start: 08-18-2023 Sex Assigned At N [facility] Other Start: 08-18-2023 [facility] Never smoked tobacco [facility] Start: 08-18-2023 History of Social function [facility] Start: 1945 Sex Assigned At Not on file [facility] Telephone encounter Note 09-16-2023 Telephone Encounter - Karol Gurrola NP - 09/16/2023 10:39 AM EST Note Date & Type Note Facility 09-16-2023 Telephone encount er Note Mammogram order [facility] Note 09-16-2023 Telephone Encounter - Karol Gurrola NP - 09/16/2023 10:39 AM EST Note Date & Type Note Facility 09-16-2023 Miscellaneous Notes Formattin g of this note might be different from the original. Mammogram order documented in this encounter [facility] Evaluation note 01-20-2023 Note Date & [...] to 7 days, sooner if significantly worsening. [facility] Other Evaluation note 01-11-2023 Note Date & [...] will send in Rx of prednisone and Almena to use as directed. Encouraged supportive care [...] treatment plan. Patient left in stable condition. [facility] Other Evaluation note 10-25-2022 Note Date & [...] no improvement in 2 to 3 days. [facility] Other Evaluation note 07-30-2022 Note Date & [...] no improvement in 5 to 7 days [facility] Other Evaluation note Note Date & Type Note Facility Evaluation note No assessment information availa [facility] Work Phone: Evaluation note Note Date & [...] Surgical History tonsillectomy Hospitalization History See Above [facility] Other Chief Complaint and Reason for Visit Chief Complaint M25.572 Advance Directives Advance Directive Response Recorded Date/ Time Advance Directives No September 11:06am Summary Purpose Family History No Family History Records FoundNo Family History Records FoundNo Family History Records Found Additional Source Comments Care Teams (unrecognized sec tion and content) Team Status: Inactive Member Role Status Dates Lorraine Rahman , GIDEON-C Attending Provider [employer] Manager Relationship Specialty Start Date End Date Kin Ontiveros MD PCP - General Family Medicine 02/05/23 Goals (unrecognized section and content) Goals may be documented in a n alternate sectionNo InformationNo InformationNo InformationNo Information INFORMATION SOURCE (unrecogn ized section and content) DATE CREATED AUTHOR 08/02/[address] [facility] DATE CREATED AUTHOR AUTHOR'S ORGANIZ ATION 11/28/2022 [facility] DATE CREATED AUTHOR AUTHOR'S ORGANIZ ATION 08/19/2023 [facility] EPIC REASON FOR VISIT (unrecogniz [...] BE BASED ON THE PRIMARY CLINICAL RECORDS. [employer] [facility]. provides no warranty or guarantee of the accuracy or completeness of information in this document.
[2024-01-18] MEDS: BUPIVACAINE HCL 0.5% PF 50 MG/10 ML VIAL INJ (10:52)
[2024-01-18] MEDS: SODIUM CHLORIDE 0.9% IRRIG SOLUTION 1,000 ML BOTTLE 1000 ML IRR (10:52)
[2024-01-18] MEDS: LIDOCAINE HCL 1% 100 MG/10 ML MDV INJ (10:52)
[2024-01-18] MEDS: DOXYCYCLINE MONOHYDRATE 100 MG CAPSULE PO (11:25)
[2024-01-18] MEDS: CEPHALEXIN 500 MG CAPSULE PO (11:25)
[2024-01-18] MEDS: BACITRACIN OINTMENT 28.4 GM TUBE 1 APPLIC TOPICAL (13:23)
== END 2024-01-18 13:30 | disposition home or self-care (01) ==
PROVIDERS: Emergency Provider Emergency Medicine; PCP Nurse Practitioner
DX: L03.012 Cellulitis of left finger (principal)
CPT/HCPCS: 10060; 73140; 87070; 87076; 87150; 87186; 99284; J0665

== ENCOUNTER 2024-06-15 06:31 | Outpatient (OUT) | payer MEDICARE, SELFPAY ==
--- OUTSIDE RECORDS SUMMARY | 2024-06-15 06:33 | XMS_ITS | CCD ---
Author Organization [facility] Care Team Providers Care Schedule Planning Manager Name Role Phone JAYLIN Rahman Attending Provider Lorraine Rahman Attending Unavailable Lorraine Rahman Admitting Unavailable Lorraine Rahman Unavailable AICHHOLZ, PLASTICS ENGINEER KAROL Attending Unavailable AICHHOLZ, PLASTICS ENGINEER KAROL Consulting Unavailable AICHHOLZ, PLASTICS ENGINEER KAROL Primary Care Unavailable AICHHOLZ, PLASTICS ENGINEER KAROL Admitting Unavailable TIMMIS, DR GARCIA Admitting Unavailable TIMMIS, DR GARCIA Attending Unavailable TIMMIS, DR GARCIA Consulting Unavailable AICHHOLZ, PLASTICS ENGINEER KAROL Primary Care Unavailable ZIEBER, DR CHUY House Consulting Unavailable AICHHOLZ, PLASTICS ENGINEER KAROL Attending Unavailable AICHHOLZ, PLASTICS ENGINEER KRAOL Consulting Unavailable AICHHOLZ, PLASTICS ENGINEER KAROL Primary Care Unavailable AICHHOLZ, PLASTICS ENGINEER KAROL Admitting Unavailable ZIEBER, DR CHUY House Consulting Unavailable SHY DOMINGUEZ Consulting Unavailable NADERELacy, DR KIN Solomon Attending Unavailable NADSISI, DR KIN Solomon Consulting Unavailable RAMA, DR KIN Solomon Admitting Unavailable AICHHOLZ, PLASTICS ENGINEER KAROL Primary Care Unavailable Antionette Ward Unavailable Tameka Velasco Unavailable AICHPATRIA, KAROL Attending Unavailable Kin Ontiveros MD Primary Care Provider CHUY DELVALLE Referring Unavailable CHUY DELVALLE Admitting Unavailable CHUY DELVALLE Attending Unavailable AichholKarol greene NP Unavailable Medications Current Medications Medication Drug Class(es) [...] Aspir-81 Active atorvastatin 40 mg oral tablet (6 sources) HMG-CoA Reductase Inhibitor Start: End: take 1 tablet by mouth at bedtime atorvastatin (Lipitor) 40 MG tablet Indications: Mixed hyperlipidemia (CMS/HCC) Take 1 tablet (40 mg) by mouth at bedtime 90 tablet 04/04/2024 07/03/2024 Active Start: 09-08-2023 End: 12-07-2023 take 1 tablet by mouth once daily [...] Minerals + Vit D) 600-200 MG-UNIT tablet (2 sources) take 1 tablet by mouth every twelve hours calcium citrate 600 mg and vitamin D3 (Citrical & Minerals + Vit D) 600-200 MG-UNIT tablet Take 1 tablet by mouth every 12 (twelve) hours Active take 1 tablet by kelli th every twelve hours calcium citrate 600 mg and vitamin D3 (Citrical & Minerals + Vit D) 600-200 MG-UNIT tablet Take 1 tablet by mouth every 12 (twelve) hours 0 Active fluticasone propionate 0.05 mg/actuat metered dose nasal spray (1 source) Corticosteroid Start: 10-25-2022 take 2 spray(s) nasal route once daily Fluticasone Propionate 50 MCG/ACT 2 sprays Nasally Once a day for 14 day(s) Oct, Active 24 hr oxybutynin chloride 15 mg extended release oral tablet (5 sources) Cholinergic Muscarinic Antagonist Start: 09-08-2023 End: 12-07-2023 take 1 tablet by mouth every twenty-four [...] 1.5 mg/ml oral solution (2 sources) Uncompetitive N-ndqnrv-Y-aspartat e Receptor Antagonist, Sigma-1 Agonist Start: 01-11-2023 take 10 mL by mouth every eight hours [place] DM 7.5-7.5 MG/5ML 10 mL Orally every 8 hours for 5 days Jan, Not-Taking predniSONE 20 mg oral tablet (2 sources) Start: 01-11-2023 take 1 tablet by mouth every twelve hours prednisone 20 MG 1 tablet Orally BID for 5 Jan, Not-Taking Problems Active Problems Problem Classification Problem Date Documented Da te Episodic/Chronic Deficiency and other anemia (2 sources) Anemia, unspecified; Translations: [Anemia, unspecified] Onset: 01-20-2024 Episodic Disorders of lipid metabolism (7 sources) Hyperlipidemia, unspecified; Translations: [Hyperlipidemia] Onset: 05-06-2022 Chronic Osteoporosis (8 sources) Age-related osteoporosis without current pathological fracture; Translations: [Senile osteoporosis] Onset: 10-01-2022 Chronic Other bone disease and musculoskeletal deformities (4 sources) Idiopathic scoliosis; Translations: [Infantile idiopathic scoliosis, site unspecified] Onset: 09-08-2023 09-08-2023 Chronic Other diseases of bladder and urethra (3 sources) Overactive bladder; Translations: [Overactive bladder] Onset: 09-08-2023 09-08-2023 Chronic Other non-traumatic joint disorders (4 sources) Acute ankle pain; Translations: [Pain in left ankle and joints of left foot] Episodic Other non-traumatic joint disorders (1 source) Pain in left ankle and joints of left foot Episodic Other upper respiratory disease (1 source) Nasal congestion Episodic Other upper respiratory infections (3 sources) Acute sinusitis, unspecified; Translations: [Acute upper respiratory infection, unspecified] Episodic Skin and subcutaneous tissue infections (1 source) Cellulitis of right finger; Translations: [Cellulitis of right finger] Onset: 01-20-2024 Episodic Unclassified (1 source) Pain in left ankle and joints of left foot; Translations: [Pain in left ankle and joints of left foot] Onset: 07-30-2022 Past or Other Problems Problem Classification Problem Date Documented Da te Episodic/Chronic Nonspecific chest pain (2 sources) Chest pain; Translations: [Other chest pain] Onset: 08-18-2023 08-18-2023 Episodic Other bone disease and musculoskeletal deformities (2 sources) Osteopenia; Translations: [Other specified disorders of bone density and structure, unspecified site] Onset: 09-08-2023 09-08-2023 Episodic Other nervous system disorders (4 sources) Anosmia; Translations: [ANOSMIA] Onset: 07-30-2022 Episodic Other nervous system disorders (2 sources) Loss of sense of smell; 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] Onset: 09-08-2023 09-08-2023 Episodic Other screening for suspected conditions (not mental disorders or infectious disease) (7 sources) Encounter for screening mammogram for malignant neoplasm of breast; Translations: [Patient encounter status] Onset: 09-26-2022 Episodic Residual codes; unclassified (2 sources) Body mass index 20-24 - normal; Translations: [Body mass index (BMI) 20.0-20.9, adult] Onset: 08-18-2023 08-18-2023 Episodic Spondylosis; intervertebral disc disorders; other back problems (2 sources) Spinal stenosis in cervical region; Translations: [Spinal stenosis, cervical region] Onset: 08-18-2023 08-18-2023 Episodic Results Test Name Value Interpretation Reference Range Facility Cult,Aerobe/Anaerobeon 01-23 Cult,Aerobe/Anaero be Specimen Description .FINGER Special Requests Site: Swab Direct Exam NO NEUTROPHILS NO ORGANISMS SEEN Culture CITROBACTER YOUNGAE RARE GROWTH Identification by MALDI-TOF No anaerobic organisms isolated at 5 days. Report Status FINAL 01/25/2024 SUSCEPTIBILITY Organism CITROBACTER YOUNGAE Method HANSA Cefazolin <=4 RESISTANT Ceftriaxone <=0.25 SUSCEPTIBLE Gentamicin <=1 SUSCEPTIBLE Levofloxacin <=0.12 SUSCEPTIBLE Piperacillin/Tazobac sunshine <=4 SUSCEPTIBLE Tobramycin <=1 SUSCEPTIBLE Trimethoprim/Sulfa <=20 SUSCEPTIBLE Susceptible [facility] Comment on above: Performed By: #### A ANC #### [facility] [address], [place] [id number] Java Application Developer: Kenneth Pillai MD [facility] [address] [place], [place] [address] Java Application Developer: Shy Goodman MD CALCIUMon 11-28-2022 Calcium [Mass/Vol] 9.2 mg/dL Normal 8.5-10.1 [facility] Comment on above: Performed By: #### C A, CREA #### [facility] [address] [place] [address] Dr. Kalpesh Coon CREATININEon 11-28-2022 Creatinine [Mass/Vol] 0.78 mg/dL Normal 0.55-1.02 [facility] Comment on above: Performed By: #### C A, CREA #### [facility] [address] [address] [address] Kalpesh Coon EGFR-AF CAYMAN ISLANDER >60 Normal >=60 [facility] Comment on above: Performed By: #### C A, CREA #### [facility] [address] [place] [address] Dr. Kalpesh Coon EGFR-NON AF CA[place] ISLANDER >60 Normal >=60 [facility] Comment on above: Performed By: #### C A, CREA #### [facility] [address] [address] [address] Kalpesh Coon COVID/FLU RT-PCRon SARS-CoV-2 (COVID-19) RNA RENETTA+probe Ql (Unsp spec) Negative [employer] Other COVID/FLU RT-PCR Negative [employer] [facility] [employer] Other MG MAMM SCREEN 3D ASAF CADon 09-26-2022 MG MAMM SCREEN 3D ASAF CAD Patient: SANDY BHANDARI Exam Date: 09/26/2022 : 1945 Gender:F Ordering : SUNITA GURROLA PLASTICS ENGINEER Admission #: [id number] Family : Order #: [id number] CLICK HERE TO VIEW EXAM RADIOLOGY REPORT [...] Treatments None Family Cancers None LOCATION: [facility] BREAST COMPOSITION: Heterogeneously dense,which may obscure small [...] M.D. on 09/26/2022 at 11:57 Normal [facility] XR DEXA BONE DENSITYon 09-26 XR DEXA [...] SHY DOMINGUEZ Date: 2022-09-26 08:49 Normal [facility] MRI BRAIN WO W CONon 022 MRI [...] CHUY JEFFERSON Date: 2022-07-31 07:22 Normal [facility] CREATININEon 07-30-2022 Creatinine [Mass/Vol] 0.67 mg/dL Normal 0.55-1.02 [facility] Comment on above: Performed By: #### C RONDA #### [facility] [address] [address] [address] Kalpesh Coon EGFR-AF CAYMAN ISLANDER >60 Normal >=60 [facility] Comment on above: Performed By: #### C RONDA #### [facility] [address] [address] [address] Kalpesh Coon EGFR-NON AF [place] ISLANDER >60 Normal >=60 [facility] Comment on above: Performed By: #### C RONDA #### [facility] [address] [address] [address] Kalpesh Coon XR ankle LT min 3V*on 2021 XR ankle LT min 3V* [facility] [employer] Other XR ankle LT min 3V* FR [facility] [place] [employer] Other XR ankle LT min 3V* [address] [facility] [employer] Other XR ankle LT min 3V* RUTHIE Marshall [address] [employer] Other XR ankle LT min 3V* XRay Report [employer] Other XR ankle LT min 3V* Signed [employer] Other XR ankle LT min 3V* Patient: Sandy Bhandari MR#: [id number] [employer] Other XR ankle LT min 3V* 90 [employer] Other XR ankle LT min 3V* : 1945 Acct:[id number] [employer] Other XR ankle LT min 3V* Age/Sex: 77 / F ADM Date: 07/30/22 [employer] Other XR ankle LT min 3V* Loc: XDUCLY Room: Type: REG CLI [employer] Other XR ankle LT min 3V* Attending Dr: Lorraine MOSQUEDA [employer] Other XR ankle LT min 3V* Copies to: JAYLIN Kennedy [employer] Other XR ankle LT min 3V* Ordering Provider: JAYLIN Kennedy [employer] Other XR ankle LT min 3V* Date of Service: 07/30/22 [employer] Other XR ankle LT min 3V* XR/XR ankle LT min 3V*: Acute left ankle pain [employer] Other XR ankle LT min 3V* 3views leftankle [employer] Other XR ankle LT min 3V* COMPARISON:None [employer] Other XR ankle LT min 3V* HISTORY: Medial left ankle pain for one week. No injury [employer] Other XR ankle LT min 3V* No fracture, dislocation or focal soft tissue abnormality seen. No significant degeneration. [employer] Other XR ankle LT min 3V* XR/XR ankle LT min 3V* [employer] Other XR ankle LT min 3V* IMPRESSION: Unremarkable exam [employer] Other XR ankle LT min 3V* Impression dictated by: Eduardo Castaneda M.D.07/30/2022 11:50 AM [employer] Other XR ankle LT min 3V* Dictation Location: [facility]--12 [employer] Other XR ankle LT min 3V* Transcribed By: PWS 07/30/22 1150 [employer] Other XR ankle LT min 3V* Dictated By: Eduardo Castaneda DO 07/30/22 1149 [employer] Other XR ankle LT min 3V* Signed By: [employer] Other XR ankle LT min 3V* 07/30/22 1150 [employer] Other XR ankle LT min 3V* [facility] [place] [address] [place] [address] XRay Report Signed Patient: Sandy Bhandari MR#: [id number] 90 : 1945 Acct:[id number] Age/Sex: 77 / F ADM Date: 07/30/22 Loc: XDUCLY Room: Type: [facility] Attending Dr: Lorraine MOSQUEDA Copies [...] Eduardo Castaneda M.D.07/30/2022 11:50 AM Dictation Location: [place] [address] Transcribed By: [facility] 07/30/22 1150 Dictated By: Eduardo Castaneda DO 07/30/22 1149 Signed By: 07/30/22 1150 [facility] CBC AUTO DIFFon 05-06-2022 BASO # 0.0 103/ul Normal 0.0-0.1 [facility] Comment on above: Performed By: #### C BC #### [facility] [address] [place] [address] Dr. Kalpesh Coon Basophils/100 WBC (Bld) 0.7 % Normal 0.2-2.0 [facility] Comment on above: Performed By: #### C BC #### [facility] [address] [place] [address] Dr. Kalpesh Coon EO # 0.1 103/ul Normal 0.0-0.7 [facility] Comment on above: Performed By: #### C BC #### [facility] [address] [address] [address] Kalpesh Coon Eosinophils/100 WBC (Bld) 2.3 % Normal 0.9-7.0 [facility] Comment on above: Performed By: #### C BC #### [facility] [address] [place] [address] Dr. Kalpesh Coon Erythrocyte distribution width (RBC) [Ratio] 13.7 % Normal 11.0-15.0 [facility] Comment on above: Performed By: #### C BC #### [facility] [address] [place] [address] Dr. Kalpesh Coon Hematocrit (Bld) [Volume fraction] 41.9 % Normal 36.0-48.0 [facility] Comment on above: Performed By: #### C BC #### [facility] [address] [place] [address] Dr. Kalpesh Coon Hemoglobin (Bld) [Mass/Vol] 13.8 g/dL Normal 12.0-16.0 [facility] Comment on above: Performed By: #### C BC #### [facility] [address] [place] [address] Dr. Kalpesh Coon IG # 0.01 10e3/ul Normal 0.00-0.03 [facility] Comment on above: Performed By: #### C BC #### [facility] [address] [place] [address] Dr. Kalpesh Coon IG % 0.2 % Normal 0.0-0.5 [facility] Comment on above: Performed By: #### C BC #### [facility] [address] [place] [address] Dr. Klapesh Coon LYMPH # 1.5 103/ul Normal 1.2-3.8 [facility] Comment on above: Performed By: #### C BC #### [facility] [address] [place] [address] Dr. Kalpesh Coon Lymphocytes/100 WBC (Bld) 25.6 % Normal 20.5-60.0 [facility] Comment on above: Performed By: #### C BC #### [facility] [address] [place] [address] Dr. Kalpesh Coon MANUAL DIFF REQ NO Normal [facility] Comment on above: Performed By: #### C BC #### [facility] [address] [place] [address] Dr. Kalpesh Coon MCH (RBC) [Entitic mass] 31.3 pg Normal 26.7-34.0 [facility] Comment on above: Performed By: #### C BC #### [facility] [address] [place] [address] Dr. Kalpesh Coon MCHC (RBC) [Mass/Vol] 32.9 g/dL Normal 29.9-35.2 [facility] Comment on above: Performed By: #### C BC #### [facility] [address] [address] [address] Kalpesh Coon MCV (RBC) [Entitic vol] 95.0 fL Normal 81.0-99.0 [facility] Comment on above: Performed By: #### C BC #### [facility] [address] [address] [address] Kalpesh Coon MONO # 0.7 103/ul Normal 0.3-0.8 [facility] Comment on above: Performed By: #### C BC #### [facility] [address] [address] [address] Kalpesh Coon Monocytes/100 WBC (Bld) 10.8 % Normal 1.7-12.0 [facility] Comment on above: Performed By: #### C BC #### [facility] [address] [address] [address] Kalpesh Coon NEUT # 3.6 103/ul Normal 1.4-6.5 [facility] Comment on above: Performed By: #### C BC #### [facility] [address] [address] [address] Kalpesh Coon Neutrophils/100 WBC (Bld) 60.4 % Normal 43.0-75.0 [facility] Comment on above: Performed By: #### C BC #### [facility] [address] [address] [address] Kalpesh Coon Platelet mean volume (Bld) [Entitic vol] 11.8 fL Normal 9.5-13.5 [facility] Comment on above: Performed By: #### C BC #### [facility] [address] [address] [address] Kalpesh Coon PLT 181 103/ul Normal 150-450 [facility] Comment on above: Performed By: #### C BC #### [facility] [address] [address] [address] Kalpesh Coon RBC 4.41 106/ul Normal 4.20-5.40 [facility] Comment on above: Performed By: #### C BC #### [facility] [address] [address] [address] Kalpesh Coon WBC 6.0 103/ul Normal 4.0-11.0 [facility] Comment on above: Performed By: #### C BC #### [facility] [address] [address] [address] Kalpesh Coon LIPID PROFILEon 05-06-2022 CHOL-HDL RATIO NORM SEE BELOW Normal [facility] Comment on above: Result Comment: 3.3 - 4.4 LOW RISK 4.4 - 7.1 AVERAGE RISK 7.1 - 11.0 MODERATE RISK >11.0 HIGH RISK Performed By: #### L IPID, CMP #### [facility] [address] [address] [address] Kalpesh Coon Cholesterol [Mass/Vol] 214 mg/dL Critically high <=200 [facility] Comment on above: Performed By: #### L IPID, CMP #### [facility] [address] [address] [address] Kalpesh Coon Cholesterol in HDL [Mass/Vol] 63 mg/dL Critically high 40-60 [facility] Comment on above: Performed By: #### L IPID, CMP #### [facility] [address] [place] [address] Dr. Kalpesh Coon Cholesterol in LDL [Mass/Vol] 131.4 mg/dL Normal [facility] Comment on above: Performed By: #### L IPID, CMP #### [facility] [address] [address] [address] Kalpesh Coon Cholesterol.total/ Cholesterol in HDL [Mass ratio] 3.4 {ratio} Normal [facility] Comment on above: Performed By: #### L IPID, CMP #### [facility] [address] [address] [address] Kalpesh Coon HDL NORMAL > or = 60 mg/dl - LOW CARDIOVASCULAR RISK <40 mg/dl - HIGH CARDIOVASCULAR RISK Normal [facility] Comment on above: Performed By: #### L IPID, CMP #### [facility] [address] [address] [address] Kalpesh Coon LDL CALC NORMAL SEE BELOW Normal [facility] Comment on above: Result Comment: <100 mg/dl OPTIMAL 100 - 129 mg/dl NEAR OR ABOVE OPTIMAL 130 - 159 mg/dl BORDERLINE HIGH 160 - 189 mg/dl HIGH >190 mg/dl VERY HIGH Performed By: #### L IPID, CMP #### [facility] [address] [address] [address] Kalpesh Coon Triglyceride [Mass/Vol] 98 mg/dL Normal <=150 [facility] Comment on above: Performed By: #### L IPID, CMP #### [facility] [address] [address] [address] Kalpesh Coon VLDL CALC 19.6 mg/dL Normal [facility] Comment on above: Performed By: #### L IPID, CMP #### [facility] [address] [place] [address] Dr. Kalpesh Coon PROF 14(COMP METB)on 022 Albumin [Mass/Vol] 4.0 g/dL Normal 3.4-5.0 [facility] Comment on above: Performed By: #### L IPID, CMP #### [facility] [address] [address] [address] Kalpesh Coon Albumin/Globulin [Mass ratio] 1.2 {ratio} Normal [facility] Comment on above: Performed By: #### L IPID, CMP #### [facility] [address] [place] [address] Dr. Kalpesh Coon ALP [Catalytic activity/Vol] 63 U/L Normal 46-116 [facility] Comment on above: Performed By: #### L IPID, CMP #### [facility] [address] [address] [address] Kalpesh Coon ALT [Catalytic activity/Vol] 27 U/L Normal 14-59 [facility] Comment on above: Performed By: #### L IPID, CMP #### [facility] [address] [address] [address] Kalpesh Coon Anion gap [Moles/Vol] 14.4 mmol/L Normal [facility] Comment on above: Performed By: #### L IPID, CMP #### [facility] [address] [address] [address] Kalpesh Coon AST [Catalytic activity/Vol] 25 U/L Normal 15-37 [facility] Comment on above: Performed By: #### L IPID, CMP #### [facility] [address] [address] [address] Kalpesh Coon Bilirubin [Mass/Vol] 1.3 mg/dL Critically high 0.2-1.0 [facility] Comment on above: Performed By: #### L IPID, CMP #### [facility] [address] [address] [address] Kalpesh Coon Calcium [Mass/Vol] 9.2 mg/dL Normal 8.5-10.1 [facility] Comment on above: Performed By: #### L IPID, CMP #### [facility] [address] [place] [address] Dr. Kalpesh Coon Chloride [Moles/Vol] 101 mmol/L Normal 98-107 [facility] Comment on above: Performed By: #### L IPID, CMP #### [facility] [address] [address] [address] Kalpesh Coon CO2 [Moles/Vol] 23.8 mmol/L Normal 21.0-32.0 [facility] Comment on above: Performed By: #### L IPID, CMP #### [facility] [address] [place] [address] Dr. Kalpesh Coon Creatinine [Mass/Vol] 0.75 mg/dL Normal 0.55-1.02 [facility] Comment on above: Performed By: #### L IPID, CMP #### [facility] [address] [address] [address] Kalpesh Coon EGFR-AF CAYMAN ISLANDER >60 Normal >=60 [facility] Comment on above: Performed By: #### L IPID, CMP #### [facility] [address] [address] [address] Kalpesh Coon EGFR-NON AF CAY[place] ISLANDER >60 Normal >=60 [facility] Comment on above: Performed By: #### L IPID, CMP #### [facility] [address] [address] [address] Kalpesh Coon Globulin (S) [Mass/Vol] 3.3 g/dL Normal [facility] Comment on above: Performed By: #### L IPID, CMP #### [facility] [address] [address] [address] Kalpesh Coon Glucose [Mass/Vol] 94 mg/dL Normal 74-106 [facility] Comment on above: Performed By: #### L IPID, CMP #### [facility] [address] [address] [address] Kalpesh Coon Potassium [Moles/Vol] 4.2 mmol/L Normal 3.5-5.1 [facility] Comment on above: Performed By: #### L IPID, CMP #### [facility] [address] [place] [address] Dr. Kalpesh Coon Protein [Mass/Vol] 7.3 g/dL Normal 6.4-8.2 [facility] Comment on above: Performed By: #### L IPID, CMP #### [facility] [address] [address] Dr. Kalpesh Coon Sodium [Moles/Vol] 135 mmol/L Critically low 136-145 [facility] Comment on above: Performed By: #### L IPID, CMP #### [facility] [address] [place] [address] Dr. Kalpesh Coon Urea nitrogen [Mass/Vol] 16.0 mg/dL Normal 7.0-18.0 [facility] Comment on above: Performed By: #### L IPID, CMP #### [facility] [address] [place] [address] Dr. Kalpesh Coon Urea nitrogen/Creatinin e [Mass ratio] 21.3 mg/mg Normal [facility] Comment on above: Performed By: #### L IPID, CMP #### [facility] [address] [place] [address] Dr. Kalpesh Coon VITAMIN D 25 OHon 05-06-2022 VIT D 25-OH 54.3 ng/mL Normal [facility] Comment on above: Performed By: #### V ITAD #### [facility] [address] [address] [address] Kalpesh Coon VIT D RANGES SEE BELOW Normal [facility] Comment on above: Result Comment: <20 ng/mL Vit D deficient 20 - <30 ng/mL Vit D insufficient 30 - 100 ng/mL Vit D sufficient >100 ng/mL Potential Toxicity Performed By: #### V ITAD #### [facility] [address] [address] [address] Kalpesh Coon Vital Signs Date Time Vital Sign Value Performing Clinician Facility 01-20-2023 09:00-0400 Body height 152.4 cm Tameka Velasco Other [facility] Other 01-20-2023 09:00-0400 Body mass index (BMI) [Ratio] 20.23 kg/m2 Tameka Velasco Other [facility] Other 01-20-2023 09:00-0400 Body temperature 96.4 [degF] Tameka Velasco Other [facility] Other 01-20-2023 09:00-0400 Body weight 46.99 kg Tameka Velasco Other [facility] Other 01-20-2023 09:00-0400 Diastolic blood pressure 75 mm[Hg] Tameka Velasco Other [facility] Other 01-20-2023 09:00-0400 Respiratory rate 18 /min Tameka Velasco Other [facility] Other 01-20-2023 09:00-0400 SaO2% (BldA) [Mass fraction] 99 % Tameka Velasco Other [facility] Other 01-20-2023 09:00-0400 Systolic blood pressure 129 mm[Hg] Tameka Velasco Other [facility] Other 01-11-2023 09:00-0400 Body height 152.4 cm Antionette Ward Other [facility] Other 01-11-2023 09:00-0400 Body mass index (BMI) [Ratio] 20.35 kg/m2 Antionette Ward Other [facility] Other 01-11-2023 09:00-0400 Body temperature 99.3 [degF] Antionette Ward Other [facility] Other 01-11-2023 09:00-0400 Body weight 47.27 kg Antionette Ward Other [facility] Other 01-11-2023 09:00-0400 Diastolic blood pressure 75 mm[Hg] Antionette Ward Other [facility] Other 01-11-2023 09:00-0400 Respiratory rate 18 /min Antionette Ward Other [facility] Other 01-11-2023 09:00-0400 SaO2% (BldA) [Mass fraction] 99 % Antionette Brownler Other [facility] Other 01-11-2023 09:00-0400 Systolic blood pressure 114 mm[Hg] Antionette Ward Other [facility] Other 10-25-2022 10:05-0400 Body height 152.4 cm Lorraine Rahman Other [facility] Other 10-25-2022 10:05-0400 Body mass index (BMI) [Ratio] 20.31 kg/m2 Lorraine Lacey Other [facility] Other 10-25-2022 10:05-0400 Body temperature 99 [degF] Lorraine Lacey Other [facility] Other 10-25-2022 10:05-0400 Body weight 47.17 kg Lorraine Lacey Other [facility] Other 10-25-2022 10:05-0400 Respiratory rate 18 /min Lorraine Lacey Other [facility] Other 10-25-2022 10:05-0400 SaO2% (BldA) [Mass fraction] 97 % Lorraine Lacey Other [facility] Other 07-30-2022 12:05-0500 Body height 152.4 cm Lorraine Lacey Other [facility] Other 07-30-2022 12:05-0500 Body mass index (BMI) [Ratio] 20.31 kg/m2 Lorraine Lacey Other [facility] Other 07-30-2022 12:05-0500 Body weight 47.17 kg Lorraine Lacey Other [facility] Other 07-30-2022 12:05-0500 Diastolic blood pressure 70 mm[Hg] Lorraine Lacey Other [facility] Other 07-30-2022 12:05-0500 Respiratory rate 18 /min Lorraine Lacey Other [facility] Other 07-30-2022 12:05-0500 SaO2% (BldA) [Mass fraction] 100 % Lorraine Rahman Other [facility] Other 07-30-2022 12:05-0500 Systolic blood pressure 122 mm[Hg] Lorraine Rahman Other [facility] Other Encounters Encounter Date Encounter Type Care Provider Facility Start: 06-13-2024 End: 06-13-2024 Orders Only Karol Galileo CANAL LOCK TENDER CHIEF OPERATOR Work Phone: [facility] Comment on above: Mixed hyperlipidemia (CMS/HCC) (Primary Dx); Age-related osteoporosis without current pathological fracture (CMS/[facility]); OAB (overactive bladder) Start: 01-20-2024 End: 01-20-2024 ambulatory [address]UY Dinh [facility] Start: 01-20-2024 End: 01-20-2024 [facility] Start: 09-16-2023 Telephone encounter Karol Rossvy darrin CANAL LOCK TENDER CHIEF OPERATOR Work Phone: [facility] Start: 08-18-2023 End: 08-18-2023 ambulatory KAROL GALILEO Not Available Start: 01-20-2023 End: 01-20-2023 ambulatory Tameka Velasco Other [facility] Other Start: 01-20-2023 Office outpatient vi sit 15 minutes Tameka Velasco [facility] Start: 01-11-2023 End: 01-11-2023 ambulatory Antionette Ward Other [facility] Other Start: 01-11-2023 Office outpatient vi sit 25 minutes Antionette Ward [facility] Start: 11-27-2022 End: 11-28-[address] KIN ONTIVEROS Facility: Start: 10-25-2022 End: 10-25-2022 ambulatory Lorraine Rahman Other 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 Lorraine Rahman Work Phone: [facility] Work Phone: Start: 07-30-2022 End: 07-30-2022 Patient encounter procedure CANAL LOCK TENDER CHIEF OPERATOR-C Lorraine Rahman Work Phone: [facility] Start: 07-30-2022 End: 07-31-[address] RADHA KIM Facility:[facility] Start: 05-06-2022 End: 05-07-2022 ambulatory SUNITA GURROLA Facility:[facility] Procedures Date Procedure Procedure Detail Performing Clinician Start: 07-30-2022 X-ray of left ankle CANAL LOCK TENDER CHIEF OPERATOR- C Lorraine Rahman Work Phone: Plan of Treatment Date Care Activity Detail Author Start: 06-21-2024 End: 06-21-2024 Patient encounter procedure 06/21/2024 10:00 AM EST Office Visit [facility] [address] [place] [address] Karol Gurrola, GIDEON [address] [place] [address] [facility] Start: 06-13-2024 End: 06-13-2025 25-hydroxyvitamin D3 [Mass/volume] in Serum or Plasma Vitamin D 25 hydroxy Lab Routine Age-related osteoporosis without current pathological fracture (CMS/HCC) Expected: 06/13/2024 (Approximate), Expires: 06/13/2025 [facility] Comment on above: Expected: 06/13/2024 (Approximate), Expires: 06/13/2025 Start: 06-13-2024 End: 06-13-2025 CBC W Auto Differential panel - Blood CBC and differential Lab Routine OAB (overactive bladder) Expected: 06/13/2024 (Approximate), Expires: 06/13/2025 [facility] Work Phone: Comment on above: Expected: 06/13/2024 (Approximate), Expires: 06/13/2025 Start: 06-13-2024 End: 06-13-2025 Comprehensive metabolic 2000 panel - Serum or Plasma Comprehensive metabolic panel Lab Routine Mixed hyperlipidemia (CMS/HCC) Age-related osteoporosis without current pathological fracture (CMS/HCC) OAB (overactive bladder) Expected: 06/13/2024 (Approximate), Expires: 06/13/2025 [facility] Comment on above: Expected: 06/13/2024 (Approximate), Expires: 06/13/2025 Start: 06-13-2024 End: 06-13-2025 Lipid 1996 panel - Serum or Plasma Lipid panel Lab Routine Mixed hyperlipidemia (CMS/HCC) Expected: 06/13/2024 (Approximate), Expires: 06/13/2025 [facility] Comment on above: Expected: 06/13/2024 (Approximate), Expires: 06/13/2025 Start: 06-13-2024 End: 06-13-2025 Urinalysis complete panel - Urine Urinalysis with reflex microscopic (clean catch) Lab Routine OAB (overactive bladder) Expected: 06/13/2024 (Approximate), Expires: 06/13/2025 [facility] Comment on above: Expected: 06/13/2024 (Approximate), Expires: 06/13/2025 Start: 06-02-2024 Medicare Annual Wellness (AWV) Medicare Annual Wellness (AWV) [facility] Start: 04-10-2024 Influenza vaccination Influenza Vacc ine (#1) [facility] Start: 09-16-2023 End: 11-14-2024 MG Breast - bilateral Screening Bilateral screening mammogram Imaging Routine Encounter for screening mammogram for malignant neoplasm of breast Expected: 09/16/2023 (Approximate), Expires: 11/14/2024 [facility] Work Phone: Comment on above: Expected: 09/16/2023 (Approximate), Expires: 11/14/2024 Start: 04-17-2021 Pneumococcal Vaccine : 65+ Years (2 - PCV) Pneumococcal Vaccine: 65+ Years (2 - PCV) [facility] Start: 04-17-2021 Pneumococcal Vaccine : 65+ Years (2 of 2 - PCV) Pneumococcal Vaccine: 65+ Years (2 of 2 - PCV) [facility] Start: 1945 Medicare Annual Wellness (AWV) Medicare Annual Wellness (AWV) [facility] Immunizations Immunization Date Immunization Notes Care Provider Fa adeel 05-05-2023 influenza virus vacc ine, unspecified formulation Karol Gurrola CANAL LOCK TENDER CHIEF OPERATOR Work Phone: [facility] Payers Date Payer Category Payer Medicaid [employer] MEDICARE A DVANTAGE [id number] 2022 Medicare AETNA MEDICARE A DVANTAGE AETNA MEDICARE REPLACEMENT [id number] 2022-Present [address] [place] [address] [id number] 2022 Self-pay [id number] 1959 Private Health Insurance [id number] 1945 Unknown [id number] 1945 Unknown [id number] 593 1945 Unknown [id number] 593 1945 Unknown [id number] 593 1945 Unknown [id number] [id number] 1945 Unknown [id number] 1945 Unknown [id number] Private Health Insurance [employer] Mcr PFFS Non Pt [id number] Unknown [id number] Social History Date Type Detail Facility [facility] if [facility] Work Phone: Start: 1945 Sex Assigned At Female F [facility] Start: 08-18-2023 Sex Assigned At N [facility] [employer] Other Start: 08-18-2023 [facility] Never [facility] tobacco [facility] Start: 08-18-2023 History of Social function [facility] Start: 1945 Sex Assigned At Not on file [facility] Telephone encounter Note 09-16-2023 Telephone Encounter - Karol Gurrola NP - 09/16/2023 10:39 AM EST Note Date & Type Note Facility 09-16-2023 Telephone encount er Note Mammogram order [facility] Healthcare Note 09-16-2023 Telephone Encounter - Karol Gurrola NP - 09/16/2023 10:39 AM EST Note Date & Type Note Facility 09-16-2023 Miscellaneous Notes Formattin g of this note might be different from the original. Mammogram order documented in this encounter [facility] Evaluation note 01-20-2023 Note Date & Type [...] to 7 days, sooner if significantly worsening. [facility] Other Evaluation note 01-11-2023 Note Date & [...] will send in Rx of prednisone and [place] to use as directed. Encouraged supportive care [...] treatment plan. Patient left in stable condition. [facility] Other Evaluation note 10-25-2022 Note Date & [...] no improvement in 2 to 3 days. [facility] Other Evaluation note 07-30-2022 Note Date & [...] no improvement in 5 to 7 days [facility] Other Evaluation note Note Date & Type Note Facility Evaluation note No assessment information availa [facility] Work Phone: Evaluation note Note Date & Type Note Facility Evaluation note Diagnosis Encounter for screening mammogram for malignant neoplasm of breast- Primary documented in this encounter [facility] Evaluation note Note Date & Type Note Facility Evaluation note Diagnosis Cervical spinal stenosis- Primary Spinal stenosis in cervical region BMI 20.0-20.9, adult Other chest pain Mixed hyperlipidemia (CMS/HCC)- Primary Mixed hyperlipidemia Age-related osteoporosis without current pathological fracture (CMS/HCC) OAB (overactive bladder) documented in this encounter [facility] Healthcare History general Narrative - Reported Note Date & Type Note Facility History general Narrative - Reported Type Medical History hyperlipidemia Medical History OAB (overactive bladder) Surgical History hysterectomy Surgical History D&C Surgical History tonsillectomy Hospitalization History See Above [facility] Other Chief Complaint and Reason for Visit [...] Lorraine Rahman , GIDEON-C Attending Provider Active Schedule Planning Manager Relationship Specialty Start Date End Date Kin Ontiveros MD PCP - General Family Medicine 02/05/23 Schedule Planning Manager Relationship Specialty Start Date End Date Kin Ontiveros MD PCP - General Family Medicine 02/05/23 Karol Gurrola NP [address] [place] [address] PCP - [employer] 08/10/23 Goals (unrecognized section and content) Goals may be documented in a n alternate sectionNo InformationNo InformationNo InformationNo Information INFORMATION SOURCE (unrecogn ized section and content) DATE CREATED AUTHOR 08/02/2022 [facility] DATE CREATED AUTHOR AUTHOR'S ORGANIZ ATION 11/28/2022 [facility] DATE CREATED AUTHOR AUTHOR'S ORGANIZ ATION [facility]/19/2023 [facility] DATE CREATED AUTHOR AUTHOR'S ORGANIZ ATION 01/29/2024 Sallyjayjay Sandoval Ilya beckham REASON FOR VISIT (unrecogniz ed section and [...] BE BASED ON THE PRIMARY CLINICAL RECORDS. [facility]. provides no warranty or guarantee of the accuracy or completeness of information in this document.
[2024-06-15 06:48] LABS: Basophils Percent Auto 0.4 % (0.2-2.0); Eosinophils Absolute Auto 0.2 10^3/uL (0.0-0.7); Hemoglobin 13.4 g/dL (12.0-16.0); Immature Granulocytes Abs Auto 0.02 10^3/uL (0.00-0.03); Immature Granulocytes Pct Auto 0.3 % (0.0-0.5); Lymphocytes Absolute Auto 1.4 10^3/uL (1.2-3.8); Lymphocytes Percent Auto 19.2 % (20.5-60.0); Mean Corpuscular HGB Conc 33.5 g/dL (29.9-35.2); Mean Corpuscular Hemoglobin 31.3 pg (26.7-34.0); Mean Corpuscular Volume 93.5 fL (81.0-99.0); Monocytes Absolute Auto 0.9 10^3/uL (0.3-0.8); Monocytes Percent Auto 11.5 % (1.7-12.0); Neutrophils Absolute Auto 4.9 10^3/uL (1.4-6.5); Neutrophils Percent Auto 66.6 % (43.0-75.0); Platelet Count 226 10^3/uL (150-450); Red Blood Count 4.28 10^6/uL (4.20-5.40); Red Cell Distribution Width 13.2 % (11.0-15.0); White Blood Count 7.4 10^3/uL (4.0-11.0)
[2024-06-15 06:55] LABS: Bilirubin Urine NEGATIVE (NEGATIVE); Blood Urine NEGATIVE (NEGATIVE); Clarity Urine CLEAR (CLEAR); Color Urine LT. YELLOW (YELLOW); Glucose Urine UA NEGATIVE (NEGATIVE); Ketones Urine NEGATIVE (NEGATIVE); Leukocyte Esterase Urine NEGATIVE (NEGATIVE); Nitrite Urine NEGATIVE (NEGATIVE); Protein Urine NEGATIVE (NEG/TRACE); Urobilinogen Urine 0.2 EU/dL (0.2-1.0)
[2024-06-15 07:02] LABS: Urine Microscopic Indicated NO
[2024-06-15 07:20] LABS: Alanine Aminotransferase 26 U/L (14-59); Albumin Globulin Ratio 0.9; Albumin Level 3.4 g/dL (3.4-5.0); Alkaline Phosphatase 78 U/L (46-116); Anion Gap 13.8; Aspartate Amino Transferase 29 U/L (15-37); BUN Creatinine Ratio 16.7; Bilirubin Total 1.3 mg/dL (0.2-1.0); Calcium 8.7 mg/dL (8.5-10.1); Carbon Dioxide 24.5 mmol/L (21.0-32.0); Chloride 101 mmol/L (98-107); Chol HDL Ratio 3.2; Cholesterol 195 mg/dL (<=200); Estimated GFR (African America >60 (>=60 mL/min/1.73m^2); Estimated GFR (Non-African Ame >60 (>=60 mL/min/1.73m^2); Globulin 3.7 g/dL; Glucose 94 mg/dL (74-106); HDL Cholesterol 60 mg/dL (40-60); LDL Cholesterol Calculated 122.8 mg/dL; Potassium 4.3 mmol/L (3.5-5.1); Sodium 135 mmol/L (136-145); Total Protein 7.1 g/dL (6.4-8.2); Triglycerides 61 mg/dL (<=150); VLDL CHOLESTEROL 12.2 mg/dL
== END 2024-06-15 06:32 | disposition home or self-care (01) ==
LOC: LAB 06:32
PROVIDERS: PCP Nurse Practitioner; Visit Provider Nurse Practitioner
DX: N32.81 Overactive bladder (principal); E78.2 Mixed hyperlipidemia; M81.0 Age-related osteoporosis without current pathological fracture
CPT/HCPCS: 36415; 80053; 80061; 81003; 82306; 85025

== ENCOUNTER 2024-07-28 07:37 | Outpatient (RCR) | payer MEDICARE, SELFPAY ==
[2024-07-28 07:23] LABS: Alanine Aminotransferase 24 U/L (14-59); Albumin Globulin Ratio 0.9; Albumin Level 3.3 g/dL (3.4-5.0); Alkaline Phosphatase 79 U/L (46-116); Anion Gap 10.3; Aspartate Amino Transferase 26 U/L (15-37); Bilirubin Total 1.2 mg/dL (0.2-1.0); Calcium 8.9 mg/dL (8.5-10.1); Chloride 102 mmol/L (98-107); Estimated GFR (African America >60 (>=60 mL/min/1.73m^2); Estimated GFR (Non-African Ame >60 (>=60 mL/min/1.73m^2); Globulin 3.5 g/dL; Glucose 85 mg/dL (74-106); Potassium 4.3 mmol/L (3.5-5.1); Sodium 137 mmol/L (136-145); Total Protein 6.8 g/dL (6.4-8.2)
[2024-07-28] MEDS: ZOLEDRONIC ACID/MANNITOL-WATER 5 MG/100 ML BOTTLE 400 MG IV (07:51)
[2024-07-28 07:54] VITALS: BP 124/72; PULSE 74; TEMP 37; O2SAT 97
== END 2024-07-28 14:19 | disposition home or self-care (01) ==
LOC: LAB 07:37
PROVIDERS: PCP Nurse Practitioner; Visit Provider Nurse Practitioner
DX: M81.0 Age-related osteoporosis without current pathological fracture (principal)
CPT/HCPCS: 36415; 80053; 96365; J3489

== ENCOUNTER 2024-10-04 09:11 | Outpatient (OUT) | payer MEDICARE, SELFPAY ==
--- NOTE | 2024-10-04 09:14 | MM_ITS ---
Patient Name: SANDY GIBBS MR#: [id number] : 1945 Exam Date: 10/04/2024 Ordering Doctor: SUNITA Gurrola CNP RADIOLOGY REPORT PROCEDURE: MM TOMOSYNTHESIS SCREENING BI COMPARISON: MM TOMOSYNTHESIS SCREENING BI, 10/02/2023. MG MAMM SCREEN 3D ASAF CAD, 09/26/2022. MG MAMM SCREEN 3D ASAF CAD, 09/19/2021. MG MAMM ASAF SCRN W CAD DIG, 01/13/2012. INDICATIONS: Screening Calculator Name NCI Breast Cancer Risk Assessment Tool 5 Year Breast Cancer Risk 1.80% Lifetime Breast Cancer Risk 3.50% Personal Breast Cancer No Personal Ovarian Cancer No Treatments None Family Cancers None LOCATION: [facility] BREAST COMPOSITION: The breasts are heterogeneously dense,which may obscure small masses. FINDINGS: RIGHT BREAST: No significant suspicious finding. Benign-appearing calcifications are present. LEFT BREAST: No significant suspicious finding. DIAGNOSTIC CATEGORY 2--BENIGN FINDING. NO CHANGE FROM COMPARISON. RECOMMENDATIONS: ROUTINE MAMMOGRAM AND CLINICAL EVALUATION IN 12 MONTHS. PLEASE NOTE: A NORMAL MAMMOGRAM DOES NOT EXCLUDE THE POSSIBILITY OF BREAST CANCER. A CLINICALLY SUSPICIOUS PALPABLE LUMP SHOULD BE BIOPSIED. Dictated by: Jackson Rowe MD on 10/04/2024 at 14:04 Approved by: Jackson Rowe MD on 10/04/2024 at 14:17
--- OUTSIDE RECORDS SUMMARY | 2024-10-04 09:14 | XMS_ITS | CCD ---
Author Organization [facility] Care Team Providers Care Chief Design Drafter Name Role Phone JAYLIN Rahman Attending Provider Lorraine Rahman Attending Unavailable Lorraine Rahman Admitting Unavailable Lorraine Rahman Unavailable AICHHOLZ, POPCORN ATTENDANT KAROL Attending Unavailable AICHHOLZ, POPCORN ATTENDANT KAROL Consulting Unavailable AICHHOLZ, POPCORN ATTENDANT KAROL Primary Care Unavailable AICHHOLZ, POPCORN ATTENDANT KAROL Admitting Unavailable TIMMIS, DR GARCIA Admitting Unavailable TIMMIS, DR GARCIA Attending Unavailable TIMMIS, DR GARCIA Consulting Unavailable AICHHOLZ, POPCORN ATTENDANT KAROL Primary Care Unavailable ZIEBER, DR CHUY House Consulting Unavailable AICHHOLZ, POPCORN ATTENDANT KAROL Attending Unavailable AICHHOLZ, POPCORN ATTENDANT KAROL Consulting Unavailable AICHHOLZ, POPCORN ATTENDANT KAROL Primary Care Unavailable AICHHOLZ, POPCORN ATTENDANT KAROL Admitting Unavailable ZIEBER, DR CHUY House Consulting Unavailable SHY DOMINGUEZ Consulting Unavailable NADERER, DR KIN Solomon Attending Unavailable NADERER, DR KIN Solomon Consulting Unavailable NADERER, DR KIN Solomon Admitting Unavailable AICHHOLZ, POPCORN ATTENDANT KAROL Primary Care Unavailable Antionette Ward Unavailable Tameka Velasco Unavailable Kin Ontiveros MD Primary Care Provider CHUY DELVALLE Referring Unavailable CHUY DELVALLE Admitting Unavailable CHUY DELVALLE Attending Unavailable Aichholz AWS DEVELOPER, Karol Unavailable AICHTONZ, KAROL Attending Unavailable AICHHOLZ, KAROL Attending Unavailable Kin Ontiveros MD Primary [...] Oct, Active Aspir-81 (4 sources) Aspir-81 Active aspirin 81 mg oral tablet (6 sources) Platelet Aggregation Inhibitor, Nonsteroidal Anti-inflammatory Drug take 81 mg by mouth once daily ASPIRIN LOW DOSE ADULT PO Take 81 mg by mouth Daily Active atorvastatin 40 mg oral tablet (15 sources) HMG-CoA Reductase Inhibitor Start: 04-04-20 End: 09-13-19 take 1 tablet by mouth at bedtime atorvastatin (Lipitor) 40 MG tablet Indications: Mixed hyperlipidemia (CMS/HCC) Take 1 tablet (40 mg) by mouth at bedtime 90 tablet 1 06/15/2024 09/13/2024 Active Start: 09-08-2023 End: 12-07-2023 take 1 [...] Minerals + Vit D) 600-200 MG-UNIT tablet (10 sources) take 1 tablet by mouth every [...] mouth every 12 (twelve) hours 0 Active cholecalciferol 0.025 mg oral capsule (6 sources) Vitamin D take 1 capsule by mouth in the morning cholecalciferol (Vitamin D-3) 25 MCG (1000 UT) capsule Take 1 capsule by mouth in the morning and 1 capsule in the evening. Active fluticasone propionate 0.05 mg/actuat metered dose nasal spray (1 source) Corticosteroid Start: 023 take 2 spray(s) nasal route once daily Fluticasone Propionate 50 MCG/ACT 2 sprays Nasally Once a day for 14 day(s) Oct, Active 24 hr oxybutynin chloride 15 mg extended release oral tablet (13 sources) Cholinergic Muscarinic Antagonist Start: 024 End: 025 take 1 tablet by mouth every twenty-four hours in the morning oxybutynin XL (Ditropan-XL) 15 MG 24 hr tablet Indications: OAB (overactive bladder) Take 1 tablet (15 mg) by mouth in the morning. 90 tablet 1 07/09/2024 10/07/2024 Active Start: 04-28-2024 End: 07-09-2024 take 1 tablet by mouth once daily oxybutynin XL (Ditropan-XL) 15 MG 24 hr tablet Take 15 mg by mouth Daily 04/28/2024 07/09/2024 Discontinued Start: 02-16-2024 End: 05-16-2024 take 1 tablet by mouth every twenty-four hours in the morning oxybutynin XL (Ditropan-XL) 15 MG 24 hr tablet Indications: OAB (overactive bladder) Take 1 tablet (15 mg) by mouth in the morning. 90 tablet 1 02/16/2024 05/16/2024 Active Start: 09-08-2023 End: 12-07-2023 take 1 tablet by mouth every twenty-four hours in the morning oxybutynin XL (Ditropan-XL) 15 MG 24 hr tablet Indications: OAB (overactive bladder) Take 1 tablet (15 mg) by mouth in the morning. Take 15 mg by mouth in the morning.. 90 tablet 1 09/08/2023 12/07/2023 Active Oxybutynin Activ e Vitamin D (4 sources) Vitamin D Active 100 ml zoledronic acid 0.05 mg/ml injection (4 sources) Bisphosphonate zoledronic acid (Reclast) 5 MG/100ML solution Infuse 5 mg into a venous catheter 1 (one) time Active Completed/Discontinued Medications Medication Drug Class(es) Dates Sig (Normalized) Sig (Original) calcium carbonate 1500 mg / cholecalciferol 200 unt oral tablet (4 sources) Vitamin D End: 06-21-2024 take 1 tablet by mouth in the morning Calcium Carb-Cholecalcife rol 600-5 MG-MCG tablet Take 1 tablet by mouth in the morning and 1 tablet before bedtime. 06/21/2024 Discontinued (Therapy completed) dextromethorphan hydrobromide 1.5 mg/ml / pyrilamine maleate 1.5 mg/ml oral solution (2 sources) Uncompetitive P-mjqkrx-F-aspartat e Receptor Antagonist, Sigma-1 Agonist Start: 01-11-2023 take 10 mL by mouth every eight hours Julian DM 7.5-7.5 MG/5ML 10 mL Orally every [...] Onset: 01-20-2024 Episodic Disorders of lipid metabolism (17 sources) Hyperlipidemia, unspecified; Translations: [Hyperlipidemia] Onset: 05-06-2022 Chronic Osteoporosis (18 sources) Age-related osteoporosis without current pathological fracture; Translations: [Senile osteoporosis] Onset: 10-01-2022 Chronic Other bone disease and musculoskeletal deformities (20 sources) Idiopathic scoliosis; Translations: [Infantile idiopathic scoliosis, site unspecified] Onset: 09-08-2023 09-08-2023 Chronic Other diseases of bladder and urethra (14 sources) Overactive bladder; Translations: [Overactive bladder] Onset: 09-08-2023 09-08-2023 Chronic Other liver diseases (7 sources) Increased bilirubin level; Translations: [Unspecified jaundice] Onset: 06-21-2024 06-21-2024 Episodic Other non-traumatic joint disorders (4 sources) [...] Classification Problem Date Documented Da te Episodic/Chronic Mood disorders (5 sources) Mood disorders Onset: 06-21-2024 06-21-2024 Nonspecific chest pain (10 sources) Chest pain; Translations: [Other chest pain] Onset: 08-18-2023 08-18-2023 Episodic Other bone disease and musculoskeletal deformities (10 sources) Osteopenia; Translations: [Other specified disorders of bone density and structure, unspecified site] Onset: 09-08-2023 09-08-2023 Episodic Other nervous system disorders (4 sources) Anosmia; Translations: [ANOSMIA] Onset: 07-30-2022 Episodic Other nervous system disorders (10 sources) Loss of sense of smell; 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] Onset: 09-08-2023 09-08-2023 Episodic Other screening for suspected conditions (not mental disorders or infectious disease) (17 sources) Encounter for screening mammogram for malignant neoplasm of breast; Translations: [Patient encounter status] Onset: 09-26-2022 Episodic Residual codes; unclassified (10 sources) Body mass index 20-24 - normal; Translations: [Body mass index (BMI) 20.0-20.9, adult] Onset: 08-18-2023 08-18-2023 Episodic Spondylosis; intervertebral disc disorders; other back problems (10 sources) Spinal stenosis in cervical region; Translations: [Spinal stenosis, cervical region] Onset: 08-18-2023 08-18-2023 Episodic Results Test Name Value Interpretation Reference Range Facility [facility] CMP (CMP) (FOR REMOTE FH C USE)on 07-28-2024 Albumin [Mass/Vol] 3.3 g/dL Low 3.4 - 5.0 g/dL NO [facility] ALBUMIN GLOBULIN RATIO 0.9 [facility] ALP [Catalytic activity/Vol] 79 U/L 46 - 116 U/L [facility] ALT [Catalytic activity/Vol] 24 U/L 14 - 59 U/L [facility] Anion gap [Moles/Vol] 10.3 mmol/L [facility] AST [Catalytic activity/Vol] 26 U/L 15 - 37 U/L [facility] Bilirubin [Mass/Vol] 1.2 mg/dL High 0.2 - 1.0 mg/dL [facility] Calcium [Mass/Vol] 8.9 mg/dL 8.5 - 10. 1 mg/dL [facility] Chloride [Moles/Vol] 102 mmol/L 98 - 107 mmol/L [facility] CO2 [Moles/Vol] 29 mmol/L 21.0 - 32.0 mmol/L [facility] Creatinine [Mass/Vol] 0.84 mg/dL 0.55 - 1.02 mg/dL [facility] GFR/1.73 sq M.predicted CKD-EPI (S/P/Bld) [Vol rate/Area] >60 >=60 mL/min/1.73m 2 [facility] Globulin (S) [Mass/Vol] 3.5 g/dL [facility] Glucose [Mass/Vol] 85 mg/dL 74 - 106 mg/dL NO [facility] Interpretation and review of laboratory results Abnormal [facility] re Potassium [Moles/Vol] 4.3 mmol/L 3.5 - 5.1 mmol/L [facility] Protein [Mass/Vol] 6.8 g/dL 6.4 - 8.2 g/dL NO [facility] Sodium [Moles/Vol] 137 mmol/L 136 - 145 mmol/L [facility] TBH EGFR-NON AF INDONESIAN >60 >=60 mL/min/1.73m 2 [facility] Urea nitrogen [Mass/Vol] 16 mg/dL 7.0 - 18.0 mg/dL [facility] Urea nitrogen/Creatinine [Mass ratio] 19 mg/mg [facility] WITH AUTO DIFFon BASOPHILS ABSOLUTE AUTO 0 [facility] Basophils/100 WBC (Bld) 0.4 % 0.2 - 2.0 % [facility] Eosinophils/100 WBC (Bld) 2 % 0.9 - 7.0 % [facility] Erythrocyte distribution width (RBC) [Ratio] 13.2 % 11.0 - 15.0 % [facility] Hematocrit (Bld) [Volume fraction] 40 % 36.0 - 48.0 % [facility] e Hemoglobin (Bld) [Mass/Vol] 13.4 g/dL 12.0 - 16.0 g/dL [facility] IMMATURE GRANULOCYTES ABS AUTO 0.02 [facility] Immature granulocytes/100 WBC (Bld) 0.3 % 0.0 - 0.5 % [facility] Interpretation and review of laboratory results Abnormal [facility] LYMPHOCYTES ABSOLUTE AUTO 1.4 [facility] Lymphocytes/100 WBC (Bld) 19.2 % Low 20.5 - 60.0 % [facility] MCH (RBC) [Entitic mass] 31.3 pg 26.7 - 34.0 pg [facility] MCHC (RBC) [Mass/Vol] 33.5 g/dL 29.9 - 35.2 g/dL [facility] MCV (RBC) [Entitic vol] 93.5 fL 81.0 - 99.0 fL [facility] MONOCYTES ABSOLUTE AUTO 0.9 High [facility] Monocytes/100 WBC (Bld) 11.5 % 1.7 - 12.0 % [facility] NEUTROPHILS ABSOLUTE AUTO 4.9 [facility] Neutrophils/100 WBC (Bld) 66.6 % 43.0 - 75.0 % [facility] Platelet mean volume (Bld) [Entitic vol] 10 fL 9.5 - 13.5 fL [facility] TBH EO # 0.2 [facility] e TB PLT 226 [facility] TB RBC 4.28 [facility] e TB WBC 7.4 [facility] e [facility] e Cult,Aerobe/Anaerobeon 01-23 Cult,Aerobe/Anaerob e Specimen Description .FINGER Special Requests Site: Swab Direct Exam NO NEUTROPHILS NO ORGANISMS SEEN Culture CITROBACTER YOUNGAE RARE GROWTH Identification by MALDI-TOF No anaerobic organisms isolated at 5 days. Report Status FINAL 01/25/2024 SUSCEPTIBILITY Organism CITROBACTER YOUNGAE Method HANSA Cefazolin <=4 RESISTANT Ceftriaxone <=0.25 SUSCEPTIBLE Gentamicin <=1 SUSCEPTIBLE Levofloxacin <=0.12 SUSCEPTIBLE Piperacillin/Tazobac sunshine <=4 SUSCEPTIBLE Tobramycin <=1 SUSCEPTIBLE Trimethoprim/Sulfa <=20 SUSCEPTIBLE Susceptible [facility] Comment on above: Performed By: #### A ANC #### [facility] [address] [place], [place] [id number] Real Estate Associate: Kenneth Pillai MD [facility] [address] [place] [address] Real Estate Associate: Shy Goodman MD CALCIUMon 11-28-2022 Calcium [Mass/Vol] 9.2 mg/dL Normal 8.5-10.1 [facility] Comment on above: Performed By: #### C A, CREA #### [facility] [address] [place] [address] Dr. Kalpesh Coon CREATININEon 11-28-2022 Creatinine [Mass/Vol] 0.78 mg/dL Normal 0.55-1.02 [facility] Comment on above: Performed By: #### C A, CREA #### [facility] [address] [place] [address] Dr. Kalpesh Coon EGFR-AF INDONESIAN >60 Normal >=60 [facility] Comment on above: Performed By: #### C A, CREA #### [facility] [address] [place] [address] Dr. Kalpesh Coon EGFR-NON AF INDONESIAN >60 Normal >=60 [facility] Comment on above: Performed By: #### C A, CREA #### [facility] [address] [place] [address] Dr. Kalpesh Coon COVID/FLU RT-PCRon 3 SARS-CoV-2 (COVID-19) RNA RENETTA+probe Ql (Unsp spec) Negative [facility] Other COVID/FLU RT-PCR Negative [facility] Other MG MAMM SCREEN 3D ASAF CADon 09-26-2022 MG MAMM SCREEN 3D ASAF CAD Patient: SANDY BHANDARI Exam Date: 09/26/2022 : 1945 Gender:F Ordering : SUNITA GURROLA POPCORN ATTENDANT Admission #: [id number] Family : Order #: [id number] CLICK HERE TO VIEW EXAM RADIOLOGY REPORT [...] Treatments None Family Cancers None LOCATION: [facility] BREAST COMPOSITION: Heterogeneously dense,which may obscure [...] M.D. on 09/26/2022 at 11:57 Normal [facility] XR DEXA BONE DENSITYon 09-26 XR [...] SHY DOMINGUEZ Date: 2022-09-26 08:49 Normal [facility] MRI BRAIN WO Rosalba Mcgowan 2 022 MRI BRAIN WO W CON EXAMINATION: [...] CHUY JEFFERSON Date: 2022-07-31 07:22 Normal [facility] CREATININEon 07-30-2022 Creatinine [Mass/Vol] 0.67 mg/dL Normal 0.55-1.02 [facility] Comment on above: Performed By: #### C RONDA #### [facility] [address] [address] [address] Kalpesh Coon EGFR-AF INDONESIAN >60 Normal >=60 [facility] Comment on above: Performed By: #### C RONDA #### [facility] [address] [address] [address] Kalpesh Coon EGFR-NON AF INDONESIAN >60 Normal >=60 [facility] Comment on above: Performed By: #### C RONDA #### [facility] [address] [address] [address] Kalpesh Coon XR ankle LT min 3V*on 2021 XR ankle LT min 3V* [facility] Other XR ankle LT min 3V* [facility] Other XR ankle LT min 3V* [address] [employer] Other XR ankle LT min 3V* RUTHIE Marshall [address] [place] [employer] Other XR ankle LT min 3V* XRay Report Alex Guthrie [facility] Other XR ankle LT min 3V* Signed [facility] Other XR ankle LT min 3V* Patient: Sandy Bhandari MR#: [id number] [facility] Other XR ankle LT min 3V* 90 [facility] Other XR ankle LT min 3V* : 1945 Acct:[id number] [facility] Other XR ankle LT min 3V* Age/Sex: 77 / F ADM Date: 07/30/22 [facility] Other XR ankle LT min 3V* Loc: XDUCLY Room: Type: REG CLI [facility] Other XR ankle LT min 3V* Attending Dr: Lorraine MOSQUEDA [facility] Other XR ankle LT min 3V* Copies to: JAYLIN Kennedy [facility] Other XR ankle LT min 3V* Ordering Provider: JAYLIN Kennedy [facility] Other XR ankle LT min 3V* Date of Service: 07/30/22 [facility] Other XR ankle LT min 3V* XR/XR ankle LT min 3V*: Acute left ankle pain [facility] Other XR ankle LT min 3V* 3views leftankle [facility] Other XR ankle LT min 3V* COMPARISON:None [facility] Other XR ankle LT min 3V* HISTORY: Medial left ankle pain for one week. No injury [facility] Other XR ankle LT min 3V* No fracture, dislocation or focal soft tissue abnormality seen. No significant degeneration. [facility] Other XR ankle LT min 3V* XR/XR ankle LT min 3V* [facility] Other XR ankle LT min 3V* IMPRESSION: Unremarkable exam [facility] Other XR ankle LT min 3V* Impression dictated by: Eduardo Castaneda M.D.07/30/2022 11:50 AM [facility] Other XR ankle LT min 3V* Dictation Location: [place] [address] [facility] Other XR ankle LT min 3V* Transcribed By: PWS 07/30/22 1150 [facility] Other XR ankle LT min 3V* Dictated By: Eduardo Castaneda DO 07/30/22 1149 [facility] Other XR ankle LT min 3V* Signed By: [facility] Other XR ankle LT min 3V* 07/30/22 1150 No rt [facility] Other XR ankle LT min 3V* [facility] [place] [address] [place] [address] XRay Report Signed Patient: Sandy Bhandari MR#: [id number] [birth year] : 1945 Acct:[id number] Age/Sex: 77 / F ADM Date: 07/30/22 Loc: XDUCLY Room: Type: [facility] Attending Dr: Lorraine MOSQUEDA Copies [...] Eduardo Castaneda M.D.07/30/2022 11:50 AM Dictation Location: [place] [address] Transcribed By: [facility] 07/30/22 1150 Dictated By: Eduardo Castaneda DO 07/30/22 1149 Signed By: 07/30/22 1150 [facility] CBC AUTO DIFFon 05-06-2022 BASO # 0.0 103/ul Normal 0.0-0.1 [facility] Comment on above: Performed By: #### C BC #### [facility] [address] [place] [address] Dr. Kalpesh Coon Basophils/100 WBC (Bld) 0.7 % Normal 0.2-2.0 [facility] Comment on above: Performed By: #### C BC #### [facility] [address] [place] [address] Dr. Kalpesh Coon EO # 0.1 103/ul Normal 0.0-0.7 [facility] Comment on above: Performed By: #### C BC #### [facility] [address] [place] [address] Dr. Kalpesh Coon Eosinophils/100 WBC (Bld) 2.3 % Normal 0.9-7.0 [facility] Comment on above: Performed By: #### C BC #### [facility] [address] [place] [address] Dr. Kalpesh Coon Erythrocyte distribution width (RBC) [Ratio] 13.7 % Normal 11.0-15.0 [facility] Comment on above: Performed By: #### C BC #### [facility] [address] [place] [address] Dr. Kalpesh Coon Hematocrit (Bld) [Volume fraction] 41.9 % Normal 36.0-48.0 [facility] Comment on above: Performed By: #### C BC #### [facility] [address] [place] [address] Dr. Kalpesh Coon Hemoglobin (Bld) [Mass/Vol] 13.8 g/dL Normal 12.0-16.0 [facility] Comment on above: Performed By: #### C BC #### [facility] [address] [place] [address] Dr. Kalpesh Coon IG # 0.01 10e3/ul Normal 0.00-0.03 [facility] Comment on above: Performed By: #### C BC #### [facility] [address] [place] [address] Dr. Kalpesh Coon IG % 0.2 % Normal 0.0-0.5 [facility] Comment on above: Performed By: #### C BC #### [facility] [address] [place] [address] Dr. Kalpesh Coon LYMPH # 1.5 103/ul Normal 1.2-3.8 [facility] Comment on above: Performed By: #### C BC #### [facility] [address] [place] [address] Dr. Kalpesh Coon Lymphocytes/100 WBC (Bld) 25.6 % Normal 20.5-60.0 [facility] Comment on above: Performed By: #### C BC #### [facility] [address] [place] [address] Dr. Kalpesh Coon MANUAL DIFF REQ NO Normal [facility] Comment on above: Performed By: #### C BC #### [facility] [address] [place] [address] Dr. Kalpesh Coon MCH (RBC) [Entitic mass] 31.3 pg Normal 26.7-34.0 [facility] Comment on above: Performed By: #### C BC #### [facility] [address] [place] [address] Dr. Kalpesh Coon MCHC (RBC) [Mass/Vol] 32.9 g/dL Normal 29.9-35.2 [facility] Comment on above: Performed By: #### C BC #### [facility] [address] [place] [address] Dr. Kalpesh Coon MCV (RBC) [Entitic vol] 95.0 fL Normal 81.0-99.0 [facility] Comment on above: Performed By: #### C BC #### [facility] [address] [place] [address] Dr. Kalpesh Coon MONO # 0.7 103/ul Normal 0.3-0.8 [facility] Comment on above: Performed By: #### C BC #### [facility] [address] [place] [address] Dr. Kalpesh Coon Monocytes/100 WBC (Bld) 10.8 % Normal 1.7-12.0 [facility] Comment on above: Performed By: #### C BC #### [facility] [address] [place] [address] Dr. Kalpesh Coon NEUT # 3.6 103/ul Normal 1.4-6.5 [facility] Comment on above: Performed By: #### C BC #### [facility] [address] [place] [address] Dr. Kalpesh Coon Neutrophils/100 WBC (Bld) 60.4 % Normal 43.0-75.0 [facility] Comment on above: Performed By: #### C BC #### [facility] [address] [place] [address] Dr. Kalpesh Coon Platelet mean volume (Bld) [Entitic vol] 11.8 fL Normal 9.5-13.5 [facility] Comment on above: Performed By: #### C BC #### [facility] [address] [place] [address] Dr. Kalpesh Coon PLT 181 103/ul Normal 150-450 [facility] Comment on above: Performed By: #### C BC #### [facility] [address] [place] [address] Dr. Kalpesh Coon RBC 4.41 106/ul Normal 4.20-5.40 [facility] Comment on above: Performed By: #### C BC #### [facility] [address] [place] [address] Dr. Kalpesh Coon WBC 6.0 103/ul Normal 4.0-11.0 [facility] Comment on above: Performed By: #### C BC #### [facility] [address] [address] [address] Kalpesh Coon LIPID PROFILEon 05-06-2022 CHOL-HDL RATIO NORM SEE BELOW Normal [facility] Comment on above: Result Comment: 3.3 - 4.4 LOW RISK 4.4 - 7.1 AVERAGE RISK 7.1 - 11.0 MODERATE RISK >11.0 HIGH RISK Performed By: #### L IPID, CMP #### [facility] [address] [address] [address] Kalpesh Coon Cholesterol [Mass/Vol] 214 mg/dL Critically high <=200 [facility] Comment on above: Performed By: #### L IPID, CMP #### [facility] [address] [address] [address] Kalpesh Coon Cholesterol in HDL [Mass/Vol] 63 mg/dL Critically high 40-60 [facility] Comment on above: Performed By: #### L IPID, CMP #### [facility] [address] [address] [address] Kalpesh Coon Cholesterol in LDL [Mass/Vol] 131.4 mg/dL Normal [facility] Comment on above: Performed By: #### L IPID, CMP #### [facility] [address] [address] [address] Kalpesh Coon Cholesterol.total/C holesterol in HDL [Mass ratio] 3.4 {ratio} Normal [facility] Comment on above: Performed By: #### L IPID, CMP #### [facility] [address] [address] [address] Kalpesh Coon HDL NORMAL > or = 60 mg/dl - LOW CARDIOVASCULAR RISK <40 mg/dl - HIGH CARDIOVASCULAR RISK Normal [facility] Comment on above: Performed By: #### L IPID, CMP #### [facility] [address] [address] [address] Kalpesh Coon LDL CALC NORMAL SEE BELOW Normal [facility] Comment on above: Result Comment: <100 mg/dl OPTIMAL 100 - 129 mg/dl NEAR OR ABOVE OPTIMAL 130 - 159 mg/dl BORDERLINE HIGH 160 - 189 mg/dl HIGH >190 mg/dl VERY HIGH Performed By: #### L IPID, CMP #### [facility] [address] [place] [address] Dr. Kalpesh Coon Triglyceride [Mass/Vol] 98 mg/dL Normal <=150 [facility] Comment on above: Performed By: #### L IPID, CMP #### [facility] [address] [place] [address] Dr. Kalpesh Coon VLDL CALC 19.6 mg/dL Normal [facility] Comment on above: Performed By: #### L IPID, CMP #### [facility] [address] [place] [address] Dr. Kalpesh Coon PROF 14(COMP METB)on 022 Albumin [Mass/Vol] 4.0 g/dL Normal 3.4-5.0 [facility] Comment on above: Performed By: #### L IPID, CMP #### [facility] [address] [place] [address] Dr. Kalpesh Coon Albumin/Globulin [Mass ratio] 1.2 {ratio} Normal [facility] Comment on above: Performed By: #### L IPID, CMP #### [facility] [address] [place] [address] Dr. Kalpesh Coon ALP [Catalytic activity/Vol] 63 U/L Normal 46-116 [facility] Comment on above: Performed By: #### L IPID, CMP #### [facility] [address] [place] [address] Dr. Kalpesh Coon ALT [Catalytic activity/Vol] 27 U/L Normal 14-59 [facility] Comment on above: Performed By: #### L IPID, CMP #### [facility] [address] [place] [address] Dr. Kalpesh Coon Anion gap [Moles/Vol] 14.4 mmol/L Normal [facility] Comment on above: Performed By: #### L IPID, CMP #### [facility] [address] [place] [address] Dr. Kalpesh Coon AST [Catalytic activity/Vol] 25 U/L Normal 15-37 [facility] Comment on above: Performed By: #### L IPID, CMP #### [facility] [address] [address] [address] Kalpesh Coon Bilirubin [Mass/Vol] 1.3 mg/dL Critically high 0.2-1.0 [facility] Comment on above: Performed By: #### L IPID, CMP #### [facility] [address] [place] [address] Dr. Kalpesh Coon Calcium [Mass/Vol] 9.2 mg/dL Normal 8.5-10.1 [facility] Comment on above: Performed By: #### L IPID, CMP #### [facility] [address] [place] [address] Dr. Kalpesh Coon Chloride [Moles/Vol] 101 mmol/L Normal 98-107 [facility] Comment on above: Performed By: #### L IPID, CMP #### [facility] [address] [place] [address] Dr. Kalpesh Coon CO2 [Moles/Vol] 23.8 mmol/L Normal 21.0-32.0 [facility] Comment on above: Performed By: #### L IPID, CMP #### [facility] [address] [place] [address] Dr. Kalpesh Coon Creatinine [Mass/Vol] 0.75 mg/dL Normal 0.55-1.02 [facility] Comment on above: Performed By: #### L IPID, CMP #### [facility] [address] [place] [address] Dr. Kalpesh Coon EGFR-AF INDONESIAN >60 Normal >=60 [facility] Comment on above: Performed By: #### L IPID, CMP #### [facility] [address] [place] [address] Dr. Kalpesh Coon EGFR-NON AF INDONESIAN >60 Normal >=60 [facility] Comment on above: Performed By: #### L IPID, CMP #### [facility] [address] [place] [address] Dr. Kalpesh Coon Globulin (S) [Mass/Vol] 3.3 g/dL Normal [facility] Comment on above: Performed By: #### L IPID, CMP #### [facility] [address] [place] [address] Dr. Kalpesh Coon Glucose [Mass/Vol] 94 mg/dL Normal 74-106 [facility] Comment on above: Performed By: #### L IPID, CMP #### [facility] [address] [place] [address] Dr. Kalpesh Coon Potassium [Moles/Vol] 4.2 mmol/L Normal 3.5-5.1 [facility] Comment on above: Performed By: #### L IPID, CMP #### [facility] [address] [place] [address] Dr. Kalpesh Coon Protein [Mass/Vol] 7.3 g/dL Normal 6.4-8.2 [facility] Comment on above: Performed By: #### L IPID, CMP #### [facility] [address] [place] [address] Dr. Kalpesh Coon Sodium [Moles/Vol] 135 mmol/L Critically low 136-145 [facility] Comment on above: Performed By: #### L IPID, CMP #### [facility] [address] [place] [address] Dr. Kalpesh Coon Urea nitrogen [Mass/Vol] 16.0 mg/dL Normal 7.0-18.0 [facility] Comment on above: Performed By: #### L IPID, CMP #### [facility] [address] [place] [address] Dr. Kalpesh Coon Urea nitrogen/Creatinine [Mass ratio] 21.3 mg/mg Normal [facility] Comment on above: Performed By: #### L IPID, CMP #### [facility] [address] [place] [address] Dr. Kalpesh Coon VITAMIN D 25 OHon 05-06-2022 VIT D 25-OH 54.3 ng/mL Normal [facility] Comment on above: Performed By: #### V ITAD #### [facility] [address] [place] [address] Dr. Kalpesh Coon VIT D RANGES SEE BELOW Normal [facility] Comment on above: Result Comment: <20 ng/mL Vit D deficient 20 - <30 ng/mL Vit D insufficient 30 - 100 ng/mL Vit D sufficient >100 ng/mL Potential Toxicity Performed By: #### V ITAD #### [facility] [address] [address] [address] Kalpesh Coon Vital Signs Date Time Vital Sign Value Performing Clinician Facility 06-21-2024 10:10-0500 Body height 153.7 cm Karol Gurrola [employer] Work Phone: [facility] 06-21-2024 10:10-0500 Body mass index (BMI) [Ratio] 19.94 kg/m2 Karol Aichtonz [employer] DEVEL[employer] Work Phone: [facility] 06-21-2024 10:10-0500 Body temperature 98.49 [degF] Karol Galileo [employer] DEVEL[employer] Work Phone: [facility] 06-21-2024 10:10-0500 Body weight 47.08 kg Karol Aichholz [employer] DEVEL[employer] Work Phone: [facility] 06-21-2024 10:10-0500 Diastolic blood pressure 80 mm[Hg] Karol Aichholz [employer] DEVELOPER Work Phone: [facility] 06-21-2024 10:10-0500 Heart rate 84 /min Karol Rosshtonz [employer] DEVELOPER Work Phone: [facility] 06-21-2024 10:10-0500 Respiratory rate 18 /min Karol Rosshtonz [employer] DEVELOPER Work Phone: [facility] 06-21-2024 10:10-0500 SaO2% (BldA) [Mass fraction] 98 % Karol Aichtonz [employer] DEVELOPER Work Phone: [facility] 06-21-2024 10:10-0500 Systolic blood pressure 116 mm[Hg] Karol Aichholz AWS DEVELOPER Work Phone: [facility] 01-20-2023 09:00-0400 Body height 152.4 cm Tameka Velasco Other [facility] Other 01-20-2023 09:00-0400 Body mass index (BMI) [Ratio] 20.23 kg/m2 Tameka Krista Other [facility] Other 01-20-2023 09:00-0400 Body temperature 96.4 [degF] Tameka Krista Other [facility] Other 01-20-2023 09:00-0400 Body weight 46.99 kg Tameka Krista Other [facility] Other 01-20-2023 09:00-0400 Diastolic blood pressure 75 mm[Hg] Tameka Velasco Other [facility] Other 01-20-2023 09:00-0400 Respiratory rate 18 /min Tameka Krista Other [facility] Other 01-20-2023 09:00-0400 SaO2% (BldA) [Mass fraction] 99 % Tameka Krista Other [facility] Other 01-20-2023 09:00-0400 Systolic blood pressure 129 mm[Hg] Tameka Velasco Other [facility] Other 01-11-2023 09:00-0400 Body height 152.4 cm Antionette Ward Other [facility] Other 01-11-2023 09:00-0400 Body mass index (BMI) [Ratio] 20.35 kg/m2 Antionette Ward Other [facility] Other 01-11-2023 09:00-0400 Body temperature 99.3 [degF] Antionette Ward Other [facility] Other 01-11-2023 09:00-0400 Body weight 47.27 kg Antionette Ward Other [facility] Other 01-11-2023 09:00-0400 Diastolic blood pressure 75 mm[Hg] Antionette Ed Other [facility] Other 01-11-2023 09:00-0400 Respiratory rate 18 /min Antionette Ward Other [facility] Other 01-11-2023 09:00-0400 SaO2% (BldA) [Mass fraction] 99 % Antionette Ward Other [facility] Other 01-11-2023 09:00-0400 Systolic blood pressure 114 mm[Hg] Antionette Ward Other [facility] Other 10-25-2022 10:05-0400 Body height 152.4 cm Lorraine Lacey Other [facility] Other 10-25-2022 10:05-0400 Body mass index (BMI) [Ratio] 20.31 kg/m2 Lorraine Lacey Other [facility] Other 10-25-2022 10:05-0400 Body temperature 99 [degF] Lorraine Lacey Other [facility] Other 10-25-2022 10:05-0400 Body weight 47.17 kg Lorraine Rahman Other [facility] Other 10-25-2022 10:05-0400 Respiratory rate 18 /min Lorraine Lacey Other [facility] Other 10-25-2022 10:05-0400 SaO2% (BldA) [Mass fraction] 97 % Lorraine Lacey Other [facility] Other 07-30-2022 12:05-0500 Body height 152.4 cm Lorraine Lacey Other [facility] Other 07-30-2022 12:05-0500 Body mass index (BMI) [Ratio] 20.31 kg/m2 Lorraine Lacey Other [facility] Other 07-30-2022 12:05-0500 Body weight 47.17 kg Lorraine Lacey Other [facility] Other 07-30-2022 12:05-0500 Diastolic blood pressure 70 mm[Hg] Lorraine Lacey Other [facility] Other 07-30-2022 12:05-0500 Respiratory rate 18 /min Lorraine Lacey Other [facility] Other 07-30-2022 12:05-0500 SaO2% (BldA) [Mass fraction] 100 % Lorraine Lacey Other [facility] Other 07-30-2022 12:05-0500 Systolic blood pressure 122 mm[Hg] Lorraine Lacey Other [facility] Other Encounters Encounter Date Encounter Type Care Provider Facility Start: 07-28-2024 End: 07-28-2024 Clinisync Result Encounter Karol Gurrola NP Work Phone: [facility] Unsolicited Start: 07-28-2024 End: 07-28-2024 Clinisync Result Encounter Karol Galileo [employer] DEVEL[employer] Work Phone: [facility] Unsolicited Start: 07-09-2024 End: 07-09-2024 Refill Karol Galileo [employer] DEVELOPER Work Phone: [facility] Comment on above: OAB (overactive blad jalen) (Primary Dx) Start: 06-21-2024 End: 06-21-2024 Bamboo flowsheet Karol Galileo AWS DEVELOPER Work Phone: [facility] Start: 06-21-2024 End: 06-21-2024 Bamboo flowsheet Karol Galileo [employer] DEVELOPER Work Phone: [facility] Start: 06-21-2024 End: 06-21-2024 Patient encounter procedure Karol Galileo AWS DEVELOPER Work Phone: [facility] Comment on above: Encounter for subseq uent annual wellness visit (AWV) in Medicare patient (Primary Dx); Encounter for screening mammogram for malignant neoplasm of breast; OAB (overactive bladder); Age-related osteoporosis without current pathological fracture (CMS/HCC); Elevated bilirubin Start: 06-21-2024 End: 06-21-2024 ambulatory KAROL GALILEO Not Available Start: 06-15-2024 End: 06-15-2024 Clinisync Result Encounter Karol Galileo [employer] DEVELOPER Work Phone: [facility] Unsolicited Start: 06-15-2024 End: 06-15-2024 Clinisync Result Encounter Karol Galileo [employer] DEVELOPER Work Phone: [facility] Unsolicited Start: 06-15-2024 End: 06-15-2024 Refill Karol Galileo [employer] DEVELOPER Work Phone: [facility] Comment on above: Mixed hyperlipidemia (CMS/HCC) Start: 06-13-2024 End: 06-13-2024 Orders Only Karol Galileo [employer] DEVELOPER Work Phone: [facility] Comment on above: Mixed hyperlipidemia (CMS/HCC) (Primary Dx); Age-related osteoporosis without current pathological fracture (CMS/HCC); OAB (overactive bladder) Start: 04-03-2024 End: 04-04-2024 Refill Karol Gurrola [employer] DEVELOPER Work Phone: [facility] Comment on above: Mixed hyperlipidemia (CMS/HCC) Start: 01-20-2024 End: 01-20-2024 ambulatory CHUY Fabrizio DELVALLE [facility] Start: 01-20-2024 End: 01-20-2024 ambulatory CHUY Fabrizio DELVALLE [facility] Start: 09-16-2023 Telephone encounter Karol clifford AWS DEVELOPER Work Phone: [facility] Start: 08-18-2023 End: 08-18-2023 ambulatory KAROL GURROLA Not Available Start: 01-20-2023 End: 01-20-2023 ambulatory Tameka Velasco Other [facility] Other Start: 01-20-2023 Office outpatient vi sit 15 minutes Tameka Velasco [facility] Start: 01-11-2023 End: 01-11-2023 ambulatory Antionette Ward Other [facility] Other Start: 01-11-2023 Office outpatient vi sit 25 minutes Antionette Ward [facility] Start: 11-27-2022 End: 11-28-[address] KIN ONTIVEROS Facility:[facility] Start: 10-25-2022 End: 10-25-2022 ambulatory Lorraine Rahman Other [facility] Other Start: 10-25-2022 Office outpatient vi sit 15 minutes Lorrainezack Rahman [facility] Start: 09-26-2022 End: 09-27-2022 ambulatory SUNITA GURROLA Facility:[facility] Start: 07-30-2022 Office outpatient ne w 20 minutes Lorraine Lacey [facility] Start: 07-30-2022 End: 07-30-2022 ambulatory Lorraine Rahman Facility:[facility] Start: 07-30-2022 End: 07-30-2022 ambulatory [employer] DEVELOPER-C Lorraine Davismond Work Phone: [facility] Work Phone: Start: 07-30-2022 End: 07-30-2022 Patient encounter procedure AWS DEVELOPER-C Lorraine Lacey Work Phone: [facility] Start: 07-30-2022 End: 07-31-[address] RADHA KIM Facility:[facility] Start: 05-06-2022 End: 05-07-2022 ambulatory SUNITA GURROLA Facility:[facility] Procedures Date Procedure Procedure Detail Performing Clinician Start: 07-28-2024 [facility] CMP (CMP) (FOR [facility] USE) Karol Gurrola [employer]EL[employer] Work Phone: Start: 06-15-2024 ALL CBC WITH AUTO DIFF Karol Gurrola [employer] DEVELOPER Work Phone: Start: 07-30-2022 X-ray of left ankle [employer] DEVELOPER- C Lorraine Lacey Work Phone: Plan of Treatment Date Care Activity Detail Author Start: 06-27-2025 End: 06-27-2025 Patient encounter procedure 06/27/2025 10:00 AM EST Office Visit [facility] [address] [place] [address] Karol Gurrola NP [address] [place] [id number] [facility] Start: 06-21-2025 Medicare Annual Wellness (AWV) Medicare Annual Wellness (AWV) [facility] Start: 10-02-2024 End: 08-21-2025 MG Breast - bilateral Screening Bilateral screening mammogram Imaging Routine Encounter for screening mammogram for malignant neoplasm of breast Expected: 10/02/2024 (Approximate), Expires: 08/21/2025 [facility] Work Phone: Comment on above: Expected: 10/02/2024 (Approximate), Expires: 08/21/2025 Start: 06-21-2024 End: 06-21-2025 Comprehensive metabolic 2000 panel - Serum or Plasma Comprehensive metabolic panel Lab Routine Age-related osteoporosis without current pathological fracture (CMS/HCC) Elevated bilirubin Expected: 06/21/2024 (Approximate), Expires: 06/21/2025 [facility] Comment on above: Expected: 06/21/2024 (Approximate), Expires: 06/21/2025 Start: 06-21-2024 End: 06-21-2024 Patient encounter procedure 06/21/2024 10:00 AM EST Office Visit [facility] [address] [place] [id number] Karol Gurrola, GIDEON [address] [place] [id number] [facility] Start: 06-13-2024 End: 06-13-2025 25-hydroxyvitamin D3 [Mass/volume] in Serum or Plasma Vitamin D 25 hydroxy Lab Routine Age-related osteoporosis without current pathological fracture (CMS/HCC) Expected: 06/13/2024 (Approximate), Expires: 06/13/2025 [facility] Comment on above: Expected: 06/13/2024 (Approximate), Expires: 06/13/2025 Start: 06-13-2024 End: 06-13-2025 CBC W Auto Differential panel - Blood CBC and differential Lab Routine OAB (overactive bladder) Expected: 06/13/2024 (Approximate), Expires: 06/13/2025 [facility] Work Phone: Comment on above: Expected: 06/13/2024 (Approximate), Expires: 06/13/2025 Start: 06-13-2024 End: 06-13-2025 Comprehensive metabolic 2000 panel - Serum or Plasma Comprehensive metabolic panel Lab Routine Mixed hyperlipidemia (CMS/HCC) Age-related osteoporosis without current pathological fracture (CMS/HCC) OAB (overactive bladder) Expected: 06/13/2024 (Approximate), Expires: 06/13/2025 [facility] Comment on above: Expected: 06/13/2024 (Approximate), Expires: 06/13/2025 Start: 06-13-2024 End: 06-13-2025 Lipid 1996 panel - Serum or Plasma Lipid panel Lab Routine Mixed hyperlipidemia (CMS/HCC) Expected: 06/13/2024 (Approximate), Expires: 06/13/2025 [facility] Comment on above: Expected: 06/13/2024 (Approximate), Expires: 06/13/2025 Start: 06-13-2024 End: 06-13-2025 Urinalysis complete panel - Urine Urinalysis with reflex microscopic (clean catch) Lab Routine OAB (overactive bladder) Expected: 06/13/2024 (Approximate), Expires: 06/13/2025 [facility] Comment on above: Expected: 06/13/2024 (Approximate), Expires: 06/13/2025 Start: 06-02-2024 Medicare Annual Wellness (AWV) Medicare Annual Wellness (AWV) [facility] Start: 04-10-2024 Influenza vaccination Influenza Vacc ine (#1) [facility] Start: 09-16-2023 End: 11-14-2024 MG Breast - bilateral Screening Bilateral screening mammogram Imaging Routine Encounter for screening mammogram for malignant neoplasm of breast Expected: 09/16/2023 (Approximate), Expires: 11/14/2024 [facility] Work Phone: Comment on above: Expected: 09/16/2023 (Approximate), Expires: 11/14/2024 Start: 04-17-2021 Pneumococcal Vaccine : 65+ Years (2 - PCV) Pneumococcal Vaccine: 65+ Years (2 - PCV) [facility] Start: 04-17-2021 Pneumococcal Vaccine : 65+ Years (2 of 2 - PCV) Pneumococcal Vaccine: 65+ Years (2 of 2 - PCV) [facility] Start: 1945 Medicare Annual Wellness (AWV) Medicare Annual Wellness (AWV) [facility] Immunizations Immunization Date Immunization Notes Care Provider Anne denis 05-05-2023 Influenza, Seasonal, Quadrivalent, Adjuvanted Karol Aichholz AWS DEVELOPER Work Phone: [facility] 05-05-2023 influenza virus vacc ine, unspecified formulation Karol Aichholz AWS DEVELOPER Work Phone: [facility] 04-13-2022 Influenza, High-dose Seasonal, Quadrivalent, Preservative Free Karol Aichholz AWS DEVELOPER Work Phone: [facility] 04-30-2021 Influenza, Seasonal, Quadrivalent, Adjuvanted Karol Aichholz AWS DEVELOPER Work Phone: [facility] 04-17-2020 influenza, injectabl e, quadrivalent, preservative free Karol Aichholz AWS DEVELOPER Work Phone: [facility] 04-17-2020 pneumococcal polysaccharide vaccine, 23 valent Karol Aichholz AWS DEVELOPER Work Phone: [facility] 04-19-2019 Seasonal trivalent influenza vaccine, adjuvanted, preservative free Karol Aichholz AWS DEVELOPER Work Phone: [facility] 03-29-2018 influenza, injectabl e, quadrivalent, preservative free Karol Aichholz AWS DEVELOPER Work Phone: [facility] 04-23-2017 influenza, injectabl e, quadrivalent, preservative free Karol Aichholz AWS DEVELOPER Work Phone: [facility] 05-13-2016 influenza, injectabl e, quadrivalent, preservative free Karol Aichholz AWS DEVELOPER Work Phone: [facility] 05-10-2016 influenza, seasonal, injectable, preservative free Karol Aichholz AWS DEVELOPER Work Phone: [facility] 05-10-2015 pneumococcal polysaccharide vaccine, 23 valent Karol Aichholz AWS DEVELOPER Work Phone: [facility] Payers Date Payer Category Payer Medicaid [id number] 2022 Medicare A[employer] MEDICARE A DVANTAGE AETNA MEDICARE REPLACEMENT [id number] 2022-Present [address] [place] [address] [id number] 2022 Self-pay [id number] 1959 Private Health Insurance [id number] 1945 Unknown [id number] 1945 Unknown [id number] 1945 Unknown [id number] 1947 Unknown [id number] 1945 Unknown [id number] 174 1945 Unknown [id number] 174 1945 Unknown [id number] [id number] 1945 Unknown [id number] Private Health Insurance A[employer] Mcr PFFS Non Pt [id number] Unknown [id number] Social History Date Type Detail Facility [facility] ever smoked [facility] Work Phone: Start: 1945 Sex Assigned At Female F [facility] Start: 08-18-2023 End: 06-21-2024 Sex Assigned At [facility] Start: 08-18-2023 Tobacco smoking stat us [facility]IS Never smoked tobacco [facility] Start: 08-18-2023 End: 06-21-2024 [facility] of [facility] Start: 1945 Sex Assigned At Not on file [facility] How often do you nee d to have someone help you when you read instructions, pamphlets, or other written material from your doctor or pharmacy [SILS] Never [facility] Do you belong to any clubs or organizations such as uatsdin groups, unions, fraternal or athletic groups, or school groups? Yes [facility] Are you now , , , , never or living with a partner? [facility] How often to you hav e a drink containing alcohol? Monthly or less [facility] How many standard dr inks containing alcohol do you have on a typical day? 1 or 2 [facility] How often do you hav e 6 or more drinks on 1 occasion? Never [facility] Do you feel stress - tense, restless, nervous, or anxious, or unable to sleep at night because your mind is troubled all the time - these days [OSQ] Only a little [facility] (I/We) worried wheth er (my/our) food would run out before (I/we) got money to buy more. Never true [facility] In the past 12 month s, was there a time when you were not able to pay the mortgage or rent on time? No [facility] Clinical Notes 07-30-2022 to 06-21-2024 Karol Gurrola NP - 06/21/2024 10:55 AM Jamie Gurrola NP - 06/21/2024 10:47 AM Jamie Gurrola NP - 06/21/2024 10:47 AM Jamie Gurrloa NP - 06/21/2024 10:00 AM ESTPatient Instructions Note Date & Type Note Facility 06-21-2024 History of Presen t illness Narrative Associated Problem(s): Elevated bilirubin Check labs in 1 month Associated Problem(s): Age-related osteoporosis without current pathological fracture ([facility]) No changes in dose of supplements Order reclast infusion Associated Problem(s): OAB (overactive bladder) Is doing well with use of med Continue taking Images from the original note were not included. Sandy Bhandari is a 79 y.o. female presents with chief complaint of No chief complaint on file. HPI: Diet: variety, healthy Activity: running 2-3 miles 4-5 times week Mental Health Concerns: good Falls in the last year: no Still driving: yes Do you pay your bills: yes Any hearing problems: age appropriate Any Vision problems: had recent eye exam all good Any Hospitalizations in the last year: had procedure right index finger for infection, but not admitted Specialist: Eye: [facility], Dentist: Dr Goel, HCPOA/Living Will: yes Concerns: fatigue SUBJECTIVE: MEDICATIONS: Current Outpatient Medications Medication Instructions ASPIRIN LOW DOSE ADULT PO 81 mg, Oral, Daily atorvastatin (LIPITOR) 40 mg, Oral, Nightly Calcium Carb-Cholecalciferol 600-5 MG-MCG tablet 1 tablet, Oral, 2 times daily calcium citrate 600 mg and vitamin D3 (Citrical & Minerals + Vit D) 600-200 MG-UNIT tablet 1 tablet, Oral, Every 12 hours cholecalciferol (Vitamin D-3) 25 MCG (1000 UT) capsule 1 capsule, Oral, 2 times daily oxybutynin XL (DITROPAN-XL) 15 mg, Daily ALLERGIES: No Known Allergies REVIEW OF SYMPTOMS: Review of Systems Constitutional: Negative for appetite change, chills and fever. HENT: Negative for congestion, ear pain and sore throat. Eyes: Negative for pain, discharge, redness and visual disturbance. Respiratory: Negative for cough, shortness of breath and wheezing. Cardiovascular: Negative for chest pain, palpitations and leg swelling. Gastrointestinal: Negative for abdominal pain, blood in stool, constipation, diarrhea, nausea and vomiting. Genitourinary: Negative for difficulty urinating, dysuria and frequency. Musculoskeletal: Negative for arthralgias, back pain, joint swelling and myalgias. Skin: Negative for rash and wound. Neurological: Negative for dizziness, tremors, seizures, syncope and headaches. Psychiatric/Behavioral: Negative for behavioral problems, self-injury and suicidal ideas. The patient is not nervous/anxious. Hematological: Does not bruise/bleed easily. Endocrine: Negative for polydipsia, polyphagia and polyuria. Allergic/Immunologic: Negative for environmental allergies and food allergies. 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 OBJECTIVE: Visit Vitals BP 116/80 (BP Location: Left arm, Patient Position: Sitting, BP Cuff Size: Adult long) Pulse 84 Temp 98.5 F (Temporal) Resp 18 Ht 5' 0.5 Wt 103 lb 12.8 oz SpO2 98% BMI 19.94 kg/m Smoking Status Never BSA 1.42 m Physical Exam Vitals and nursing note reviewed. Constitutional: General: She is not in acute distress. Appearance: Normal appearance. HENT: Head: Normocephalic and atraumatic. Right Ear: External ear normal. Left Ear: External ear normal. Nose: Nose normal. Mouth/Throat: Mouth: Mucous membranes are moist. Eyes: Extraocular Movements: Extraocular movements intact. Conjunctiva/sclera: Conjunctivae normal. Neck: Vascular: No carotid bruit. Cardiovascular: Rate and Rhythm: Normal rate and regular rhythm. Pulses: Normal pulses. Heart sounds: Normal heart sounds. Pulmonary: Effort: Pulmonary effort is normal. Breath sounds: Normal breath sounds. No wheezing or rales. Abdominal: General: Bowel sounds are normal. There is no distension. Palpations: Abdomen is soft. There is no mass. Tenderness: There is no abdominal tenderness. Musculoskeletal: General: Normal range of motion. Cervical back: Normal range of motion and neck supple. Right lower leg: No edema. Left lower leg: No edema. Lymphadenopathy: Cervical: No cervical adenopathy. Skin: General: Skin is warm and dry. Capillary Refill: Capillary refill takes 2 to 3 seconds. Findings: No rash. Neurological: General: No focal deficit present. Mental Status: She is alert and oriented to person, place, and time. Psychiatric: Mood and Affect: Mood normal. Behavior: Behavior normal. Thought Content: Thought content normal. Judgment: Judgment normal. ASSESSMENT AND PLAN: No follow-ups on file. Problem List Items Addressed This Visit Age-related osteoporosis without current pathological fracture (CMS/HCC) No changes in dose of supplements Order reclast infusion OAB (overactive bladder) Is doing well with use of med Continue taking Encounter for screening mammogram for malignant neoplasm of breast Relevant Orders Bilateral screening mammogram Encounter for subsequent annual wellness visit (AWV) in Medicare patient - Primary Reviewed Ht/Wt/BMI Recommend eye exam yearly Recommend dental exams twice a year Balance work/leisure activities Exercises is recommended most days of the week (appropriate as chronic conditions allow) Follow up yearly and prn Associated Problem(s): Encounter for subsequent annual wellness visit (AWV) in Medicare patient Reviewed Ht/Wt/BMI Recommend eye exam yearly Recommend dental exams twice a year Balance work/leisure activities Exercises is recommended most days of the week (appropriate as chronic conditions allow) Follow up yearly and prn documented in this encounter [facility] 06-21-2024 Instructions Karol Gurrola NP - 06/21/2024 10:00 AM EST Repeat liver test early July Reclast early July labs the day of that appt [facility] Should call you to schedule documented in this encounter [facility] 09-16-2023 Telephone encount er Note Mammogram order [facility] 09-16-2023 Miscellaneous Notes Formattin g of this note might be different from the original. Mammogram order documented in this encounter [facility] 01-20-2023 Evaluation note Encounter Date Diagnosis Assessment [...] to 7 days, sooner if significantly worsening. [facility] Other 06-04-2023 Evaluation note* Encounter Date Diagnosis Assessment Notes Treatment Notes Treatment Clinical Notes Jan, Viral URI with cough (ICD-10 - J06.9) No testing performed today in office. Advised patient that will treat as viral URI. Advised that viral syndromes last 7 to 10 days, antibiotics are not indicated at this time. We will send in Rx of prednisone and Julian to use as directed. Encouraged supportive care [...] treatment plan. Patient left in stable condition. [facility] Other 03-18-2023 Evaluation note* Encounter Date Diagnosis Assessment Notes Treatment Notes Treatment Clinical Notes Oct, Nasal congestion (ICD-10 - R09.81) [...] no improvement in 2 to 3 days. [facility] Other 12-21-2022 Evaluation note* Encounter Date Diagnosis Assessment Notes Treatment Notes Treatment Clinical Notes Jul, Acute left ankle pain (ICD-10 - M25.572) Ankle sprain home care material was printed Drink plenty fluids, get plenty of rest. Ice and elevate your ankle 2-3 times a day. Take ibuprofen, 400 mg with food 2-3 times a day for pain and swelling. Follow-up with your family physician if no improvement in 5 to 7 days [facility] Other Evaluation noteNo assessment information available [facility] Work Phone: Evaluation note* Diagnosis Encounter for screening mammogram for malignant neoplasm of breast- Primary documented in this encounter [facility] HealthcareEvaluation note* Diagnosis Cervical spinal stenosis- Primary Spinal stenosis in cervical region BMI 20.0-20.9, adult Other chest pain Mixed hyperlipidemia (CMS/HCC)- Primary Mixed hyperlipidemia Age-related osteoporosis without current pathological fracture (CMS/HCC) OAB (overactive bladder) documented in this encounter [facility] HealthcareEvaluation note* Diagnosis Cervical spinal stenosis- Primary Spinal stenosis in cervical region BMI 20.0-20.9, adult Other chest pain Mixed hyperlipidemia (CMS/HCC) Mixed hyperlipidemia documented in this encounter [facility] HealthcareEvaluation note* Diagnosis Cervical spinal stenosis- Primary Spinal stenosis in cervical region BMI 20.0-20.9, adult Other chest pain Encounter for subsequent annual wellness visit (AWV) in Medicare patient- Primary Encounter for screening mammogram for malignant neoplasm of breast OAB (overactive bladder) Age-related osteoporosis without current pathological fracture (CMS/HCC) Elevated bilirubin documented in this encounter [facility] HealthcareEvaluation note* Diagnosis Cervical spinal stenosis- Primary Spinal stenosis in cervical region BMI 20.0-20.9, adult Other chest pain Encounter for subsequent annual wellness visit (AWV) in Medicare patient- Primary Encounter for screening mammogram for malignant neoplasm of breast OAB (overactive bladder) Age-related osteoporosis without current pathological fracture (CMS/HCC) Elevated bilirubin OAB (overactive bladder)- Primary documented in this encounter [facility]* Diagnosis Mixed hyperlipidemia (CMS/HCC) Mixed hyperlipidemia documented in this encounter [facility] N[facility]ative - Reported* Type Description Date Medical History hyperlipidemia Medical History OAB (overactive bladder) Surgical History hysterectomy Surgical History D&C Surgical History tonsillectomy Hospitalization History See Above [facility] Other Chief Complaint and Reason for Visit [...] Lorraine Rahman , GIDEON-C Attending Provider Active Chief Design Drafter Relationship Specialty Start Date End Date Kin Ontiveros MD PCP - General Family Medicine 02/05/23 Chief Design Drafter Relationship Specialty Start Date End Date Kin Ontiveros MD PCP - General Family Medicine 02/05/23 Karol Gurrola NP [address] [place] [address] PCP - [employer] 08/10/23 Chief Design Drafter Relationship Specialty Start Date End Date Kin Ontiveros MD PCP - General Family Medicine 02/05/23 Karol Gurrola NP [address] [place] [address] PCP - [employer] 08/10/23 Chief Design Drafter Relationship Specialty Start Date End Date Kin Ontiveros MD PCP - General Family Medicine 02/05/23 Karol Gurrola NP [address] [place] [address] PCP - [employer] 08/10/23 Chief Design Drafter Relationship Specialty Start Date End Date Karol Gurrola NP [address] [place] [address] PCP - [employer] 08/10/23 Kin Ontiveros MD [address] [place] [address] PCP - General Family Medicine 06/21/24 Chief Design Drafter Relationship Specialty Start Date End Date Karol Gurrola NP [address] [place] [address] PCP - [employer] 08/10/23 Kin Ontiveros MD [address] [place] [address] PCP - General Family Medicine 06/21/24 Chief Design Drafter Relationship Specialty Start Date End Date Karol Gurrola NP [address] [place] [address] PCP - [employer] 08/10/23 Kin Ontiveros MD [address] [place] [address] PCP - General Family Medicine 06/21/24 Goals (unrecognized section and content) Goals may be documented in a n alternate sectionNo InformationNo InformationNo InformationNo Information INFORMATION SOURCE (unrecogn ized section and content) DATE CREATED AUTHOR 08/02/2022 [facility] DATE CREATED AUTHOR AUTHOR'S ORGANIZ ATION 11/28/2022 [facility] DATE CREATED AUTHOR AUTHOR'S [facility]IZ AT[facility] DATE CREATED AUTHOR AUTHOR'S ORGANIZ ATION 06/23/2024 [facility] EPIC REASON FOR VISIT (unrecogniz ed section and content) Reason Comments Med Refill FOR RECORDS PERTAINING TO PATIENTS WHO ARE [...] BE BASED ON THE PRIMARY CLINICAL RECORDS. [employer] provides no warranty or guarantee of the accuracy or completeness of information in this document.
== END 2024-10-04 09:12 | disposition home or self-care (01) ==
LOC: MAMMO 09:12
PROVIDERS: PCP Nurse Practitioner; Visit Provider Nurse Practitioner
DX: Z12.31 Encounter for screening mammogram for malignant neoplasm of breast (principal)
CPT/HCPCS: 77063; 77067

== ENCOUNTER 2025-06-01 06:16 | Outpatient (OUT) | payer MEDICARE, SELFPAY ==
--- OUTSIDE RECORDS SUMMARY | 2025-06-01 06:22 | XMS_ITS | CCD ---
Author Organization [facility] Care Team Providers Care Superintendent Nonselling Name Role Phone JAYLIN Rahman Attending Provider Lorraine Rahman Attending Unavailable Lorraine Rahman Admitting Unavailable Lorraine Rahman Unavailable AICHHOLZ, GAS APPLIANCE INSTALLER KAROL Attending Unavailable AICHHOLZ, GAS APPLIANCE INSTALLER KAROL Consulting Unavailable AICHHOLZ, GAS APPLIANCE INSTALLER KAROL Primary Care Unavailable AICHHOLZ, GAS APPLIANCE INSTALLER KAROL Admitting Unavailable TIMMIS, DR GARCIA Admitting Unavailable TIMMIS, DR GARCIA Attending Unavailable TIMMIS, DR GARCIA Consulting Unavailable AICHHOLZ, GAS APPLIANCE INSTALLER KAROL Primary Care Unavailable ZIEBER, DR CHUY House Consulting Unavailable AICHHOLZ, GAS APPLIANCE INSTALLER KAROL Attending Unavailable AICHHOLZ, GAS APPLIANCE INSTALLER KAROL Consulting Unavailable AICHHOLZ, GAS APPLIANCE INSTALLER KAROL Primary Care Unavailable AICHHOLZ, GAS APPLIANCE INSTALLER KAROL Admitting Unavailable ZIEBER, DR CHUY House Consulting Unavailable SHY DOMINGUEZ Consulting Unavailable NADERER, DR KIN Solomon Attending Unavailable NADERER, DR KIN Solomon Consulting Unavailable NADERER, DR KIN Solomon Admitting Unavailable AICHHOLZ, GAS APPLIANCE INSTALLER KAROL Primary Care Unavailable Antionette Ward Unavailable Tameka Velasco Unavailable Kin Fofana MD Primary Care Provider CHUY DELVALLE Referring Unavailable CHUY DELVALLE Admitting Unavailable CHUY DELVALLE Attending Unavailable Aichholz ICE CREAM MAKER, Karol Unavailable Kin Fofana MD Primary Care Provider [phone] AICHHOLMisael, KAROL Attending Unavailable AICHHOLZ, KAROL Attending Unavailable Medications Current Medications MedicationDrug Class(es)DatesSig (Normalized)Sig (Original)amoxicillin 875 mg / clavulanate 125 mg oral tablet (2 sources)Penicillin-class AntibacterialStart: 94-20-7952umzv 1 tablet by mouth every twelve hoursAmoxicillin-Pot Clavulanate 875-125 MG 1 tablet Orally every 12 hrs for 7 days Jan, ActiveStart: 68-33-0610nafd 1 tablet by mouth every twelve hoursAmoxicillin-Pot Clavulanate 875-125 MG 1 tablet Orally every 12 hrs for 10 day(s) Oct, ActiveAspir-81 (4 sources)Aspir-81 Activeaspirin 81 mg oral tablet (13 sources)Platelet Aggregation Inhibitor, Nonsteroidal Anti-inflammatory Drug take 81 mg by mouth once dailyASPIRIN LOW DOSE ADULT PO Take 81 mg by mouth Daily Activeatorvastatin 40 mg oral tablet (20 sources)HMG-CoA Reductase InhibitorStart: 04-03-2025 End: 03-52-5861kmyt 1 tablet by mouth at bedtimeatorvastatin (Lipitor) 40 MG tablet Indications: Mixed hyperlipidemia Take 1 tablet (40 mg) by mouth at bedtime 90 tablet 04/03/2025 07/02/2025 ActiveStart: 04-04-2024 End: 11-33-6921kzde 1 tablet by mouth at bedtimeatorvastatin (Lipitor) 40 MG tablet Indications: Mixed hyperlipidemia (CMS/HCC) Take 1 tablet (40 mg) by mouth at bedtime 90 tablet 1 11/07/2024 02/05/2025 ActiveStart: 09-08-2023 End: 91-36-6492ywbq 1 tablet by mouth once dailyatorvastatin (Lipitor) 40 MG tablet Indications: Mixed hyperlipidemia (CMS/HCC) Take 1 tablet (40 mg) by mouth 1 (one) time each day at the same time Take 40 mg by mouth 1 (one) time each day at the same time 30 tablet 1 09/08/2023 12/07/2023 Activetake 1 tablet by mouth every twenty-four hoursAtorvastatin Calcium 40 MG 1 tablet Orally Once a day ActiveCalcium (4 sources)Phosphate Binder, CalciumCalcium + D Activecalcium carbonate 1500 mg / cholecalciferol 200 unt oral tablet (9 sources)Vitamin Dtake 1 tablet by mouth every twelve hourscalcium citrate 600 mg and vitamin D3 (Citrical & Minerals + Vit D) 600-200 MG-UNIT tablet Take1 tablet by mouth every 12 (twelve) hours Active End: 34-86-6330hvah 1 tablet by mouth in the morningCalcium Carb-Cholecalciferol 600-5 MG-MCG tablet Take 1 tablet by mouth in the morning and 1 tabletbefore bedtime. 06/21/2024 Discontinued (Therapy completed)calcium citrate 600 mg and vitamin D3 (Citrical & Minerals + Vit D) 600-200 MG-UNIT tablet (12 sources)take 1 tablet by mouth every twelve hourscalcium citrate 600 mg and vitamin D3 (Citrical & Minerals + Vit D) 600-200 MG-UNIT tablet Take1 tablet by mouth every 12 (twelve) hours Activetake 1 tablet by mouth every twelve hours calcium citrate 600 mg and vitamin D3 (Citrical & Minerals + Vit D) 600-200 MG- UNIT tablet Take1 tablet by mouth every 12 (twelve) hours 0 Active cholecalciferol 0.025 mg oral capsule (13 sources)Vitamin Dtake 1 capsule by mouth in the morningcholecalciferol (Vitamin D-3) 25 MCG (1000 UT) capsule Take 1 capsule by mouth in the morning and 1capsule in the evening. Activefluticasone propionate 0.05 mg/actuat metered dose nasal spray (1 source)CorticosteroidStart: 72-32-2380wctv 2 spray(s) nasal route once daily Fluticasone Propionate 50 MCG/ACT 2 sprays Nasally Once a day for 14 day(s) Oct, Cfhkwy57 hr oxybutynin chloride 15 mg extended release oral tablet (18 sources)Cholinergic Muscarinic AntagonistStart: 11-30-2024 End: 95-85-2847wqzk 1 tablet by mouth every twenty-four hours in the morning oxybutynin XL (Ditropan-XL) 15 MG 24 hr tablet Indications: OAB (overactive bladder) Take 1 tablet (15 mg) by mouth in the morning. 90 tablet 1 11/30/2024 02/28/2025 ActiveStart: 07-09-2024 End: 34-90-5603vldm 1 tablet by mouth every twenty-four hours in the morning oxybutynin XL (Ditropan-XL) 15 MG 24 hr tablet Indications: OAB (overactive bladder) Take 1 tablet (15 mg) by mouth in the morning. 90 tablet 1 07/09/2024 10/07/2024 ActiveStart: 04-28-2024 End: 73-12-9403caki 1 tablet by mouth once dailyoxybutynin XL (Ditropan-XL) 15 MG 24 hr tablet Take 15 mg by mouth Daily 04/28/2024 07/09/2024 Discontinued Start: 02-16-2024 End: 05-40-2009jmtd 1 tablet by mouth every twenty-four hours in the morning oxybutynin XL (Ditropan-XL) 15 MG 24 hr tablet Indications: OAB (overactive bladder) Take 1 tablet (15 mg) by mouth in the morning. 90 tablet 1 02/16/2024 05/16/2024 ActiveStart: 09-08-2023 End: 81-57-3160svtc 1 tablet by mouth every twenty-four hours in the morning oxybutynin XL (Ditropan-XL) 15 MG 24 hr tablet Indications: OAB (overactive bladder) Take 1 tablet (15 mg) by mouth in the morning. Take 15 mg by mouth in the morning.. 90 tablet 1 09/08/2023 12/07/2023 ActiveOxybutynin ActiveVitamin D (4 sources)Vitamin D Drmpjt548 ml zoledronic acid 0.05 mg/ml injection (11 sources)Bisphosphonatezoledronic acid (Reclast) 5 MG/100ML solution Infuse 5 mg into a venous catheter 1 (one) time Active Completed/Discontinued Medications MedicationDrug Class(es)DatesSig (Normalized)Sig (Original)dextromethorphan hydrobromide 1.5 mg/ml / pyrilamine maleate 1.5 mg/ml oral solution (2 sources)Uncompetitive J-chjdyl-J-aspartate Receptor Antagonist, Sigma-1 AgonistStart: 35-71-8201grcp 10 mL by mouth every eight hoursCapron DM 7.5-7.5 MG/5ML 10 mL Orally every 8 hours for 5 days Jan, Not-TakingpredniSONE 20 mg oral tablet (2 sources)Start: 57-75-6330wqgd 1 tablet by mouth every twelve hoursprednisone 20 MG 1 tablet Orally BID for 5 Jan, Not-Taking Problems Active Problems Problem ClassificationProblemDateDocumented DateEpisodic/ChronicDeficiency and other anemia (2 sources)Anemia, unspecified; Translations: [Anemia, unspecified]Onset: 27-93-4699UbpiwbkrXsmppyzyj of lipid metabolism (20 sources)Hyperlipidemia, unspecified; Translations: [Hyperlipidemia]Onset: 56-19-9300ZahmlrcOhhluazarwil (20 sources)Age-related osteoporosis without current pathological fracture; Translations: [Senile osteoporosis]Onset: 75-66-6189IvfbcltIjtnq bone disease and musculoskeletal deformities (20 sources)Idiopathic scoliosis; Translations: [Infantile idiopathic scoliosis, site unspecified]Onset: 860373-27-6203DmgxkbtZbius diseases of bladder and urethra (20 sources)Overactive bladder; Translations: [Overactive bladder]Onset: 512448-29-3169GcgkbruCfltm non-traumatic joint disorders (4 sources)Acute ankle pain; Translations: [Pain in left ankle and joints of left foot]EpisodicOther non-traumatic joint disorders (1 source)Pain in left ankle and joints of left footEpisodicOther upper respiratory disease (1 source)Nasal congestionEpisodicOther upper respiratory infections (3 sources)Acute sinusitis, unspecified; Translations: [Acute upper respiratory infection, unspecified]EpisodicSkin and subcutaneous tissue infections (1 source)Cellulitis of right finger; Translations: [Cellulitis of right finger] Onset: 30-35-2263BnczmzskItayqtnhkxlh (1 source)Pain in left ankle and joints of left foot; Translations: [Pain in left ankle and joints of left foot]Onset: 07-30-2022 Past or Other Problems Problem ClassificationProblemDateDocumented DateEpisodic/ChronicMood disorders (12 sources)Mood disordersOnset: 987277-24-9004Hjuuwbpfkwr chest pain (17 sources)Chest pain; Translations: [Other chest pain]Onset: 08-18-2023 72-51-1566CvckuaizWxxaa bone disease and musculoskeletal deformities (17 sources)Osteopenia; Translations: [Other specified disorders of bone density and structure, unspecified site]Onset: 938337-94-1258OxuvzjuwXikqu liver diseases (14 sources)Increased bilirubin level; Translations: [Unspecified jaundice] Onset: 407236-66-3678BffuahucHpcvg nervous system disorders (4 sources)Anosmia; Translations: [ANOSMIA]Onset: 27-89-9870BvhgvhtoCmfbu nervous system disorders (17 sources)Loss of sense of smell; 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]Onset: 09-08-2023 42-57-3507UznmbtixVsvui screening for suspected conditions (not mental disorders or infectious disease) (20 sources)Encounter for screening mammogram for malignant neoplasm of breast; Translations: [Patient encounter status]Onset: 79-58-3230OvckqpnuPgkvtxjx codes; unclassified (17 sources)Body mass index 20-24 - normal; Translations: [Body mass index (BMI) 20.0-20.9, adult]Onset: 537282-14-4085RgjkwdusZjbslqhmerh; intervertebral disc disorders; other back problems (19 sources)Spinal stenosis in cervical region; Translations: [Spinal stenosis, cervical region]Onset: 984469-70-4868Kokpadeq Results Test NameValueInterpretationReference RangeFacilityMM TOMOSYNTHESIS SCREENING BI on 66[place]99[place] [address] Mammography Report Signed Patient: SANDY BHANDARI MR#: [id number] : 1945 Acct:[id number] Age/Sex: 79 / F ADM Date: 10/04/24 Loc: MAMMO Attending Dr: Karol Gurrola NP Ordering Physician: Karol Gurrola NP Results: Date of Service: 10/04/24 Follow Up: Procedure(s): MM tomosynthesis screening BI Accession Number(s): [id number] cc: Karol Gurrola NP Patient Name: SANDY BHANDARI MR#: [id number] : 1945 Exam Date: 10/04/2024 Ordering Doctor: SUNITA Gurrola CNP RADIOLOGY REPORT PROCEDURE: MM TOMOSYNTHESIS SCREENING BI COMPARISON: MM TOMOSYNTHESIS SCREENING BI, 10/02/2023. MG MAMM SCREEN 3D ASAF CAD, 09/26/2022. MG MAMM SCREEN 3D ASAF CAD, 09/19/2021. MG MAMM ASAF SCRN W CAD DIG, 01/13/2012. INDICATIONS: Screening Calculator Name NCI Breast Cancer Risk Assessment Tool 5 Year Breast Cancer Risk 1.80% Lifetime Breast Cancer Risk 3.50% Personal Breast Cancer No Personal Ovarian Cancer No Treatments None Family Cancers None LOCATION: [facility] BREAST COMPOSITION: The breasts are heterogeneously dense,which may obscure small masses. FINDINGS: RIGHT BREAST: No significant suspicious finding. Benign-appearing calcifications are present. LEFT BREAST: No significant suspicious finding. DIAGNOSTIC CATEGORY 2--BENIGN FINDING. NO CHANGE FROM COMPARISON. RECOMMENDATIONS: ROUTINE MAMMOGRAM AND CLINICAL EVALUATION IN 12 MONTHS. PLEASE NOTE: A NORMAL MAMMOGRAM DOES NOT EXCLUDE THE POSSIBILITY OF BREAST CANCER. A CLINICALLY SUSPICIOUS PALPABLE LUMP SHOULD BE BIOPSIED. Dictated by: Jackson Rowe MD on 10/04/2024 at 14:04 Approved by: Jackson Rowe MD on 10/04/2024 at 14:17 Dictated By: Jackson Rowe M.D. Signed By: 10/04/24 1418 DD/ 1417 TD/TT: [employer] Laminator:TBHRadiology, Radiologist, - 10/04/2024 [place] [address] Mammography Report Signed Patient: SANDY BHANDARI MR#: [id number] : 1945 Acct:[id number] Age/Sex: 79 / F ADM Date: 10/04/24 Loc: MAMMO Attending Dr: Karol Gurrola NP Ordering Physician: Karol Gurrola NP Results: Date of Service: 10/04/24 Follow Up: Procedure(s): MM tomosynthesis screening BI Accession Number(s): [id number] cc: Karol Gurrola NP Patient Name: SANDY BHANDARI MR#: [id number] : 1945 Exam Date: 10/04/2024 Ordering Doctor: SUNITA Gurrola CNP RADIOLOGY REPORT PROCEDURE: MM TOMOSYNTHESIS SCREENING BI COMPARISON: MM TOMOSYNTHESIS SCREENING BI, 10/02/2023. MG MAMM SCREEN 3D ASAF CAD, 09/26/2022. MG MAMM SCREEN 3D ASAF CAD, 09/19/2021. MG MAMM ASAF SCRN W CAD DIG, 01/13/2012. INDICATIONS: Screening Calculator Name NCI Breast Cancer Risk Assessment Tool 5 Year Breast Cancer Risk 1.80% Lifetime Breast Cancer Risk 3.50% Personal Breast Cancer No Personal Ovarian Cancer No Treatments None Family Cancers None LOCATION: [facility] BREAST COMPOSITION: The breasts are heterogeneously dense,which may obscure small masses. FINDINGS: RIGHT BREAST: No significant suspicious finding. Benign-appearing calcifications are present. LEFT BREAST: No significant suspicious finding. DIAGNOSTIC CATEGORY 2--BENIGN FINDING. NO CHANGE FROM COMPARISON. RECOMMENDATIONS: ROUTINE MAMMOGRAM AND CLINICAL EVALUATION IN 12 MONTHS. PLEASE NOTE: A NORMAL MAMMOGRAM DOES NOT EXCLUDE THE POSSIBILITY OF BREAST CANCER. A CLINICALLY SUSPICIOUS PALPABLE LUMP SHOULD BE BIOPSIED. Dictated by: Jackson Rowe MD on 10/04/2024 at 14:04 Approved by: Jackson Rowe MD on 10/04/2024 at 14:17 Dictated By: Jackson Rowe M.D. Signed By: 10/04/24 1418 DD/ 1417 TD/TT: [employer] L[employer]ator: [facility] CenterRadiology Study observation (narrative)[facility] TOMOSYNTHESIS SCREENING BIOrdered By: Radiologist Radiology on 83-28-6796RO[facility] Work Phone: ccf CMP (CMP) (FOR REMOTE [facility] USE)on 96-46-5940Moxywct [Mass/Vol]3.3 g/dLLow3.4 - 5.0 g/dLNOMS HealthcareALBUMIN GLOBULIN RATIO0.9NODE HealthcareALP [Catalytic activity/Vol]79 U/L46 - 116 U/LNOMS HealthcareALT [Catalytic activity/Vol]24 U/L14 - 59 U/LNOMS HealthcareAnion gap [Moles/Vol] 10.3 mmol/LNOMS HealthcareAST [Catalytic activity/Vol]26 U/L15 - 37 U/LNOMS HealthcareBilirubin [Mass/Vol]1.2 mg/dLHigh0.2 - 1.0 mg/dLNOMS HealthcareCalcium [Mass/Vol]8.9 mg/dL8.5 - 10.1 mg/dLNOMS HealthcareChloride [Moles/Vol]102 mmol/L98 - 107 mmol/LNOMS HealthcareCO2 [Moles/Vol]29 mmol/L21.0 - 32.0 mmol/L [facility] CenterCreatinine [Mass/Vol]0.84 mg/dL0.55 - 1.02 mg/dLNOLakeland Regional Hospital GFR/1.73 sq M.predicted CKD-EPI (S/P/Bld) [Vol rate/Area]>60>=60 mL/min/1.73m 2 NOM HealthcareGlobulin (S) [Mass/Vol]3.5 g/dLNOLakeland Regional HospitalGlucose [Mass/Vol] 85 mg/dL74 - 106 mg/dLSaint John's Breech Regional Medical CenterInterpretation and review of laboratory resultsAbnormalSaint John's Breech Regional Medical CenterPotassium [Moles/Vol]4.3 mmol/L3.5 - 5.1 mmol/L [facility] HealthcareProtein [Mass/Vol]6.8 g/dL6.4 - 8.2 g/dLNOLakeland Regional HospitalSodium [Moles/Vol]137 mmol/L136 - 145 mmol/LNScotland County Memorial HospitalTBH EGFR-NON AF PALAUAN>60 >=60 mL/min/1.73m 2NOMS HealthcareUrea nitrogen [Mass/Vol]16 mg/dL7.0 - 18.0 mg/dLNOLakeland Regional HospitalUrea nitrogen/Creatinine [Mass ratio]19 mg/mgNOLakeland Regional Hospital CLINISYNCNODE HealthcareALL CBC WITH AUTO DIFFon 97-25-5636CQIUEOMUA ABSOLUTE SUNE2EDED HealthcareBasophils/100 WBC (Bld)0.4 %0.2 - 2.0 %[facility] Eosinophils/100 WBC (Bld)2 %0.9 - 7.0 %[facility] Medical CenterErythrocyte distribution width (RBC) [Ratio]13.2 %11.0 - 15.0 %[facility] Medical CenterHematocrit (Bld) [Volume fraction]40 %36.0 - 48.0 %[facility] Medical CenterHemoglobin (Bld) [Mass/Vol]13.4 g/dL 12.0 - 16.0 g/dLSaint John's Breech Regional Medical CenterIMMATURE GRANULOCYTES ABS AUTO0.02NOLakeland Regional Hospital Immature granulocytes/100 WBC (Bld)0.3 %0.0 - 0.5 %[facility] HealthcareInterpretation and review of laboratory resultsAbnormalNOMS HealthcareLYMPHOCYTES ABSOLUTE AUTO1.4NOMS [facility] Medical CenterLymphocytes/100 WBC (Bld)19.2 %Low20.5 - 60.0 %[facility]Po[facility] HospitalH (RBC) [Entitic mass]31.3 pg26.7 - 34.0 pgNOKindred HospitalHC (RBC) [Mass/Vol]33.5 g/dL29.9 - 35.2 g/dLSouthPointe HospitalV (RBC) [Entitic vol]93.5 fL 81.0 - 99.0 fLSaint John's Breech Regional Medical CenterMONOCYTES ABSOLUTE AUTO0.9HighSaint John's B[facility]ch [facility] Monocytes/100 WBC (Bld)11.5 %1.7 - 12.0 %[facility] HealthcareNEUTROPHILS ABSOLUTE AUTO4.9NOLakeland Regional HospitalNeutrophils/100 WBC (Bld)66.6 %43.0 - 75.0 %[facility] HealthcarePlatelet mean volume (Bld) [Entitic vol]10 fL9.5 - 13.5 fLSaint John's Breech Regional Medical CenterTB EO #0.2NOMS HealthcareTBH [id number] Regional HospitalTB RBC4.28NOLakeland Regional HospitalTB WBC7.4NODE HealthcareCLINISYNCNOMS HealthcareCult,Aerobe/Anaerobe on 79-03-5767Vqak,Aerobe/AnaerobeSpecimen Description .FINGER Special Requests Site: Swab Direct Exam NO NEUTROPHILS NO ORGANISMS SEEN Culture CITROBACTER YOUNGAE RARE GROWTH Identification by MALDI-TOF No anaerobic organisms isolated at 5 days. Report Status FINAL 01/25/2024 SUSCEPTIBILITY Organism CITROBACTER YOUNGAE Method AHNSA Cefazolin <=4 RESISTANT Ceftriaxone <=0.25 SUSCEPTIBLE Gentamicin <=1 SUSCEPTIBLE Levofloxacin <=0.12 SUSCEPTIBLE Piperacillin/Tazobactam <=4 SUSCEPTIBLE Tobramycin <=1 SUSCEPTIBLE Trimethoprim/Sulfa <=20 SUSCEPTIBLESusceptibleCoshocton Regional Medical CenterComment on above:Performed By: #### AANC #### [facility] [employer] [address] [place] [address] Telemetry Technician: Kenneth Pillai MD [facility] [address] [place] [address] Telemetry Technician: [place] TateALCIUMon 92-31-9249Pcahsjk [Mass/Vol]9.2 mg/dL Normal8.5-10.1[facility] HospitalComment on above:Performed By: #### CA, CREA #### [facility] [address] [place] [address] Dr. Kalpesh CoonCREATININEon 93-74-6889Aodagvenmp [Mass/Vol]0.78 mg/dLNormal 0.55-1.02The [facility] HospitalComment on above:Performed By: #### CA, CREA #### [facility] [address] [place] [address] Dr. Kalpesh WinslowGFR-AF PALAUAN>60Normal>=60The [facility] HospitalComment on above:Performed By: #### JUDI, CREA #### [facility] [address] [place] [address] Dr. Kalpesh WinslowGFR-NON AF PALAUAN>60Normal>=60The [facility] HospitalComment on above:Performed By: #### JUDI, CREA #### [facility] [address] [place] [address] Dr. Kalpesh CoonCOVID/FLU RT-PCRon 58-79-9156CZDH-CoV-2 (COVID-19) RNA RENETTA+probe Ql (Unsp spec)NegativeNortDepartment of [facility] Affairs [facility] CCM Benchmark Other COVID/FLU RT-PCRNegativeNortDepartment of Veterans Affairs Medical [facility] CCM [employer]mark Other MG MAMM SCREEN 3D ASAF CADon 70-64-5031YD MAMM SCREEN 3D ASAF CADPatient: SANDY BHANDARI Exam Date: 09/26/2022 : 1945 Gender:F Ordering : SUNITA GURROLA GAS APPLIANCE INSTALLER Admission #: [id number] Family : Order #: [id number] CLICK HERE TO VIEW EXAM RADIOLOGY REPORT [...] Treatments None Family Cancers None LOCATION: [facility] BREAST COMPOSITION: Heterogeneously dense,which may obscure [...] by: Chuy Jefferson M.D. on 09/26/2022 at 11:57[facility] HospitalXR DEXA BONE DENSITYon 05-46-1873ZT DEXA BONE DENSITYDEXA Bone Density Study CLINICAL: Evaluate bone mineral [...] Electronically authenticated by: SHY DOMINGUEZ Date: 2022-09-26 08:[address] [place], [place] [address]MRI BRAIN WO W CONon 59-95-5115LWO BRAIN WO W CONEXAMINATION: MRI BRAIN WO W CON HISTORY: Loss [...] Electronically authenticated by: CHUY JEFFERSON Date: 2022-07-31 07:22[facility] HospitalATININE 46-54-8134Wtiosnzwsv [Mass/Vol]0.67 mg/dLNormal 0.55-1.02[facility] HospitalComment on above:Performed By: #### CREA #### [facility] [address] [address] [address] Kalpesh WinslowGFR-AF PALAUAN>60Normal>=60The [facility] HospitalComment on above:Performed By: #### CREA #### [facility] [address] [address] [address] Kalpesh WinslowGFR-NON AF PALAUAN>60Normal>=60[facility] on above:Performed By: #### CREA #### [facility] [address] [address] [address] Kalpesh CoonXR ankle LT min 3V*on 01-44-5128WE ankle LT min 3V*[facility] CCM [employer] Other XR ankle LT min 3V*[facility] CCM [employer] Other XR ankle LT min 3V*[address] [facility] CCM [employer]mark Other XR ankle LT min 3V*Joanna, [address] CCM Benchmark Other XR ankle LT min 3V*[facility] CCM Benchmark Other XR ankle LT min 3V*[place]igned[place] [facility] Other XR ankle LT min 3V*Patient: Sandy Bhandari MR#: [id number] [facility] Other XR ankle LT min 3V*90[place] [facility] Other XR ankle LT min 3V*: 1945 Acct:[id number] [place] [facility] Other XR ankle LT min 3V*Age/Sex: 77 / F ADM Date: 07/30/22 [employer] Other XR ankle LT min 3V*Loc: XDUC Room: Type: [facility] [employer] Other XR ankle LT min 3V*Attending Dr: Lorraine MOSQUEDA [place] [facility] [employer] Other XR ankle LT min 3V*Copies to: JAYLIN Kennedy [place] [facility] Other XR ankle LT min 3V*Ordering Provider: ISMAEL [facility] Other XR ankle LT min 3V*Date of Service: 07/30/22[place] [facility] Other XR ankle LT min 3V* XR/XR ankle LT min 3V*: Acute left ankle painMillersville [facility] Other XR ankle LT min 3V*3views leftankleNresearch psychiatric center [facility] Other XR ankle LT min 3V*COMPARISON:[facility] [employer] Other XR ankle LT min 3V*HISTORY: Medial left ankle pain for one week. No injuryNochristian hospital [facility] [employer] Other XR ankle LT min 3V*No fracture, dislocation or focal soft tissue abnormality seen. No significant degeneration.[employer] Other XR ankle LT min 3V* XR/XR ankle LT min 3V*[employer] Other XR ankle LT min 3V*IMPRESSION: Unremarkable examNochristian hospital [facility] Other XR ankle LT min 3V*Impression dictated by: Eduardo Castaneda M.D.07/30/2022 11:50 AMNresearch psychiatric center [facility] Other XR ankle LT min 3V*Dictation Location: [place] [address] [employer] Other XR ankle LT min 3V*Transcribed By: [facility] 07/30/22 [facility] [employer] Other XR ankle LT min 3V*Dictated By: Eduardo Castaneda DO 07/30/22 1149[place] [facility] Other XR ankle LT min 3V*Signed By:[employer] Other XR ankle LT min 3V*07/30/22 [facility] HospitalMobile[facility]aks Other XR ankle LT min 3V*[facility] Main [place] [address] [place] [address] XRay Report Signed Patient: Sandy Bhandari MR#: [id number] : 1945 Acct:[id number] Age/Sex: 77 / F ADM Date: 07/30/22 Loc: XDUCLY Room: Type: [facility] Attending Dr: Lorraine MOSQUEDA Copies to: JAYLIN [...] Eduardo Castaneda M.D.07/30/2022 11:50 AM Dictation Location: [place] [address] Transcribed By: [facility] 07/30/22 1150 Dictated By: Eduardo Castaneda DO 07/30/22 1149 Signed By: 07/30/22 1150[facility] Arms HospitalCB AUTO DIFFon 05-06-2022 BASO #0.0 103/ulNormal0.0-0.1The [facility] HospitalComment on above:Performed By: #### CBC #### [facility] [address] [address] [address] Kalpesh CoonBasophils/100 WBC (Bld)0.7 %Normal0.2-2.0[facility] Comment on above:Performed By: #### CBC #### [facility] [address] [address] [address] Kalpesh Bunch #0.1 103/ulNormal0.0-0.7The [facility] HospitalComment on above: Performed By: #### CBC #### [facility] [address] [address] [address] Kalpesh Winslowosinophils/100 WBC (Bld)2.3 %Normal0.9-7.0[facility] Comment on above:Performed By: #### CBC #### [facility] [address] [address] [address] Kalpesh Winslowrythrocyte distribution width (RBC) [Ratio]13.7 %Evxliq03.0-15.0 The [facility] HospitalComment on above:Performed By: #### CBC #### [facility] [address] [address] [address] Kalpesh CoonHematocrit (Bld) [Volume fraction]41.9 %Rlbcrb67.0-48.0The [facility] HospitalComment on above:Performed By: #### CBC #### [facility] [address] [address] [address] Kalpesh CoonHemoglobin (Bld) [Mass/Vol]13.8 g/eGHdynat97.0-16.0The [facility] Systemment on above:Performed By: #### CBC #### [facility] [address] [address] [address] Kalpesh Ashley #0.01 10e3/ulNormal0.00-0.03The [facility] on above:Performed By: #### CBC #### [facility] [address] [place] [address] Dr. Kalpesh Ashley %0.2 %Normal0.0-0.5The [facility] HospitalComment on above: Performed By: #### CBC #### [facility] [address] [place] [address] Dr. Kalpesh Castro #1.5 103/ulNormal1.2-3.8The [facility]Com[facility] on above:Performed By: #### CBC #### [facility] [address] [place] [address] Dr. Kalpesh Cameronhocytes/100 WBC (Bld)25.6 %Avayvb90.5-60.0The [facility] on above:Performed By: #### CBC #### [facility] [address] [place] [address] Dr. Kalpesh CuencaUAL DIFF REQNONormalThe [facility] HospitalComcorewell health [facility] on above: Performed By: #### CBC #### [facility] [address] [place] [address] Dr. Kalpesh Engel (RBC) [Entitic mass]31.3 xeRtuqui22.7-34.0The [facility]ment on above:Performed By: #### CBC #### [facility] [address] [place] [address] Dr. Kalpesh Engel (RBC) [Mass/Vol]32.9 g/jAZgwffn52.9-35.2The [facility] Systemment on above:Performed By: #### CBC #### [facility] [address] [place] [address] Dr. Kalpesh Engel (RBC) [Entitic vol]95.0 kOKxegph21.0-99.0The [facility] HospitalComment on above:Performed By: #### CBC #### [facility] [address] [address] [address] Kalpesh Patel #0.7 103/ulNormal0.3-0.8The [facility] HospitalComment on above:Performed By: #### CBC #### [facility] [address] [address] [address] Kalpesh Gonzalezocytes/100 WBC (Bld)10.8 %Normal1.7-12.0[facility] Comment on above:Performed By: #### CBC #### [facility] [address] [place] [address] Dr. Kalpesh Li #3.6 103/ulNormal1.4-6.5The [facility] HospitalComment on above:Performed By: #### CBC #### [facility] [address] [place] [address] Dr. Kalpesh Bethutrophils/100 WBC (Bld)60.4 %Bqacti16.0-75.0The [facility] HospitalComment on above:Performed By: #### CBC #### [facility] [address] [place] [address] Dr. Kalpesh Hoffmann mean volume (Bld) [Entitic vol]11.8 fLNormal9.5-13.5The [facility] HospitalComment on above:Performed By: #### CBC #### [facility] [address] [place] [address] Dr. Kalpesh CoonPLT181 103/zwUglbwt262-280Prb [facility] HospitalComment on above: Performed By: #### CBC #### [facility] [address] [place] [address] Dr. Kalpesh CoonRBC4.41 106/ulNormal4.20-5.40The [facility] HospitalComment on above:Performed By: #### CBC #### [facility] [address] [place] [address] Dr. Kalpesh CoonWBC6.0 103/ulNormal4.0-11.0The [facility] on above: Performed By: #### CBC #### [facility] [address] [address] [address] Kalpesh LopezID PROFILEon 77-43-5219KKRN-HDL RATIO NORMSMiami Valley HospitalComcorewell health reed city hospital on above:Result Comment: 3.3 - 4.4 LOW RISK 4.4 - 7.1 AVERAGE RISK 7.1 - 11.0 MODERATE RISK >11.0 HIGH RISKPerformed By: #### LIPID, CMP #### [facility] [address] [address] [address] Kalpesh CoonCholesterol [Mass/Vol]214 mg/dLCritically high<=200The [facility] on above:Performed By: #### LIPID, CMP #### [facility] [address] [address] [address] Kalpesh CoonCholesterol in HDL [Mass/Vol]63 mg/dLCritically vgsu88-63Cpr [facility] on above:Performed By: #### LIPID, CMP #### [facility] [address] [address] [address] Kalpesh CoonCholesterol in LDL [Mass/Vol]131.4 mg/dLMansfield Hospital on above:Performed By: #### LIPID, CMP #### [facility] [address] [address] [address] Kalpesh Quachesterchilango.total/Cholesterol in HDL [Mass ratio]3.4 {ratio} NormalThe [facility] on above:Performed By: #### LIPID, CMP #### [facility] [address] [address] [address] Kalpesh CoonHDL NORMAL> or = 60 mg/dl - LOW CARDIOVASCULAR RISK <40 mg/dl - HIGH CARDIOVASCULAR RISKMansfield Hospital on above:Performed By: #### LIPID, CMP #### [facility] [address] [address] [address] Kalpesh CoonLDL CALC NORMALSEE [facility] HospitalComcore[facility] on above:Result Comment: <100 mg/dl OPTIMAL 100 - 129 mg/dl NEAR OR ABOVE OPTIMAL 130 - 159 mg/dl BORDERLINE HIGH 160 - 189 mg/dl HIGH >190 mg/dl VERY HIGH Performed By: #### LIPID, CMP #### [facility] [address] [place] [address] Dr. Kalpesh CoonTriglyceride [Mass/Vol]98 mg/dLNormal<=150[facility] Comment on above:Performed By: #### LIPID, CMP #### [facility] [address] [address] [address] Kalpesh CoonVLDL CALC19.6 mg/dLNormalThe [facility] HospitalComment on above: Performed By: #### LIPID, CMP #### [facility] [address] [place] [address] Dr. Kalpesh Perry 14(COMP METB)on 83-85-1004Qtfxbuu [Mass/Vol]4.0 g/dLNormal 3.4-5.0The [facility] HospitalComment on above:Performed By: #### LIPID, CMP #### [facility] [address] [place] [address] Dr. Kalpesh CoonAlbumin/Globulin [Mass ratio]1.2 {ratio}NormalThe [facility] HospitalComment on above:Performed By: #### LIPID, CMP #### [facility] [address] [place] [address] Dr. Kalpesh Rosenbaum [Catalytic activity/Vol]63 U/DTzciiz23-580Whp [facility] HospitalComment on above:Performed By: #### LIPID, CMP #### [facility] [address] [place] [address] Dr. Kalpesh Coreas [Catalytic activity/Vol]27 U/HDydloq74-42Dqg [facility] HospitalComment on above:Performed By: #### LIPID, CMP #### [facility] [address] [place] [address] Dr. Kalpesh Bernal gap [Moles/Vol]14.4 mmol/LNormalThe [facility] Comment on above:Performed By: #### LIPID, CMP #### [facility] [address] [place] [address] Dr. Kalpesh CoonAST [Catalytic activity/Vol]25 U/JEgcdmj18-50Upw [facility] HospitalComment on above:Performed By: #### LIPID, CMP #### [facility] [address] [address] [address] Kalpesh CoonBilirubin [Mass/Vol]1.3 mg/dLCritically high0.2-1.0The [facility] HospitalComment on above:Performed By: #### LIPID, CMP #### [facility] [address] [place] [address] Dr. Kalpesh CoonCalcium [Mass/Vol]9.2 mg/dLNormal8.5-10.1[facility] Comment on above:Performed By: #### LIPID, CMP #### [facility] [address] [place] [address] Dr. Kalpesh CoonChloride [Moles/Vol]101 mmol/VFfkrss10-474Efd [facility] Comment on above:Performed By: #### LIPID, CMP #### [facility] [address] [place] [address] Dr. Kalpesh CoonCO2 [Moles/Vol]23.8 mmol/FRabfvl72.0-32.0[facility] Comment on above:Performed By: #### LIPID, CMP #### [facility] [address] [place] [address] Dr. Kalpesh CoonCreatinine [Mass/Vol]0.75 mg/dLNormal0.55-1.02The [facility] HospitalComment on above:Performed By: #### LIPID, CMP #### [facility] [address] [place] [address] Dr. Kalpesh WinslowGFR-AF PALAUAN>60Normal>=60The [facility] HospitalComment on above:Performed By: #### LIPID, CMP #### [facility] [address] [place] [address] Dr. Kalpesh WinslowGFR-NON AF PALAUAN>60Normal>=60The [facility] HospitalComment on above:Performed By: #### LIPID, CMP #### [facility] [address] [address] [address] Kalpesh CoonGlobulin (S) [Mass/Vol]3.3 g/dLNormHolmes County Joel Pomerene Memorial HospitalComment on above:Performed By: #### LIPID, CMP #### [facility] [address] [place] [address] Dr. Kalpesh CoonGlucose [Mass/Vol]94 mg/sPFchnvd63-779Kbk [facility] Comment on above:Performed By: #### LIPID, CMP #### [facility] [address] [place] [address] Dr. Kalpesh CoonPotassium [Moles/Vol]4.2 mmol/LNormal3.5-5.1[facility] Comment on above:Performed By: #### LIPID, CMP #### [facility] [address] [place] [address] Dr. Kalpesh CoonProtein [Mass/Vol]7.3 g/dLNormal6.4-8.2[facility] Comment on above:Performed By: #### LIPID, CMP #### [facility] [address] [place] [address] Dr. Kalpesh CoonSodium [Moles/Vol]135 mmol/LCritically rox427-227Nda [facility] HospitalComment on above:Performed By: #### LIPID, CMP #### [facility] [address] [place] [address] Dr. Kalpesh CoonUrea nitrogen [Mass/Vol]16.0 mg/dLNormal7.0-18.0The [facility] HospitalComment on above:Performed By: #### LIPID, CMP #### [facility] [address] [place] [address] Dr. Kalpesh CoonUrea nitrogen/Creatinine [Mass ratio]21.3 mg/mgNoWright-Patterson Medical CenterComment on above:Performed By: #### LIPID, CMP #### [facility] [address] [place] [address] Dr. Kalpesh CoonVITAMIN D 25 OHon 89-02-0374YTA D 25-OH54.3 ng/mLNormalThe [facility] HospitalComment on above:Performed By: #### VITAD #### [facility] [address] [place] [address] Dr. Kalpesh AMRKettering Health – Soin Medical CenterComment on above: Result Comment: <20 ng/mL Vit D deficient 20 - <30 ng/mL Vit D insufficient 30 - 100 ng/mL Vit D sufficient >100 ng/mL Potential ToxicityPerformed By: #### VITAD #### [facility] [address] [place] [address] Dr. Kalpesh oCon Vital Signs Date TimeVital SignValuePerforming OjnmmhkntPovmwodc04-17-1643 14:02-0400Body mass index (BMI) [Ratio]20.28 kg/m2Karol Gurrola [employer] Work Phone: [phone] [place], [place] [address]Ssjavvlbod65-34-1383 14:02-0400Body temperature 98.01 [degF]Karol Galileo [employer] Work Phone: [phone] [place], [place] [address]Neqkjzgoqm90-23-0072 14:02-0400Body .9 kg Karol Francesz [employer] Work Phone: [facility] CenterLayqxdutkn48-04-7615 14:02-0400Diastolic blood rntsyvss32 mm[Hg]Karol Rosshtonz [employer] Work Phone: [facility] CenterLfhfodxraa01-72-1558 14:02-0400Heart rate67 /min Karol Galileo [employer] Work Phone: [facility] CenterTjgdhhxxmr29-49-7594 14:02-0400Respiratory rate18 /minLisa Rosshholz [employer] Work Phone: [facility] CenterGygtrczbkx25-89-5768 14:02-2409RbS7% (BldA) [Mass fraction]99 %Karol Francesz [employer] Work Phone: [facility] CenterSmqkpmripv87-09-0309 14:02-0400Systolic blood drlokznp569 mm[Hg]Karol Rosshtonz [employer] Work Phone: [facility] CenterLhwzpynbcv43-37-0447 10:10-0500Body gghbhu764.7 cmLisa Aichholz [employer] Work Phone: [facility] CenterLyfwjszgno88-58-5615 10:10-0500Body mass index (BMI) [Ratio]19.94 kg/m2Karol Gurrola [employer] Work Phone: [facility] CenterFmebyckbjx67-33-4292 10:10-0500Body temperature 98.49 [degF]Karol Gurrola [employer] Work Phone: [facility] CenterEprqhsycgb64-77-2190 10:10-0500Body .08 kgKarol Gurrola [employer] Work Phone: [facility] CenterMnslodpwgh17-73-9241 10:10-0500Diastolic blood wxtyxrlw60 mm[Hg]Karol Gurrola [employer] Work Phone: [facility] CenterLxveerzugc66-09-7904 10:10-0500Heart rate84 /min Karol Gurrola [employer] Work Phone: [facility] CenterOyatvimqjw92-13-2664 10:10-0500Respiratory rate18 /minLisa Gurrola [employer] Work Phone: [facility] CenterOxnldflkyg35-67-2919 10:10-0760KhL0% (BldA) [Mass fraction]98 %Karol Gurrola [employer] Work Phone: [facility] CenterOkosfmilrk20-66-5586 10:10-0500Systolic blood nkemvfvq182 mm[Hg]Karol Gurrola [employer] Work Phone: [facility] CenterNyjntozebd65-28-4663 09:00-0400Body .4 Baltazar Velasco Other [facility] [employer] Other 06-13-2023 09:00-0400Body mass index (BMI) [Ratio] 20.23 kg/b2ZsqckcTameka Velasco Other [facility] Other 06-13-2023 09:00-0400Body jidnrpzbtnz39.4 [degF]Tameka Velasco Other [employer] Other 06-13-2023 09:00-0400Body .99 kgTameka Krista Other [employer] Other 06-13-2023 09:00-0400Diastolic blood rmnxuvjr35 mm[Hg] Tameka Velasco Other [employer] Other 06-13-2023 09:00-0400Respiratory rate18 /minTaemka Velasco Other [employer] Other 06-13-2023 09:00-4485BpM6% (BldA) [Mass fraction]99 % Tameka Velasco Other [employer] Other 06-13-2023 09:00-0400Systolic blood ebsnsmfa436 mm[Hg] Tameka Velasco Other [employer] Other 06-04-2023 09:00-0400Body rrgovd025.4 cmAkenna Ward Other [employer] Other 06-04-2023 09:00-0400Body mass index (BMI) [Ratio] 20.35 kg/f1QostrAntionette Ward Other [employer] Other 06-04-2023 09:00-0400Body .3 [degF]Antionette Ward Other [employer] Other 06-04-2023 09:00-0400Body pgsbep32.27 kgAntionette Ward Other [employer] Other 06-04-2023 09:00-0400Diastolic blood ebsslxgh89 mm[Hg] Antionette Ward Other [employer] Other 06-04-2023 09:00-0400Respiratory rate18 /minAmber Ed Other [employer] Other 06-04-2023 09:00-6863ScZ6% (BldA) [Mass fraction]99 % Antionette Ward Other [employer] Other 06-04-2023 09:00-0400Systolic blood tybbnfdh239 mm[Hg] Antionette Ward Other [employer] Other 03-18-2023 10:05-0400Body vbkyvx017.4 cmPamela Lacey Other [employer] Other 03-18-2023 10:05-0400Body mass index (BMI) [Ratio] 20.31 kg/d3Ichemr Lacey Other [employer] Other 03-18-2023 10:05-0400Body [degF]Lorraine Lacey Other [employer] Other 03-18-2023 10:05-0400Body .17 kgPaesdras Davismond Other [employer] Other 03-18-2023 10:05-0400Respiratory rate18 /minPaesdras Rahman Other [employer] Other 03-18-2023 10:05-0726LuR1% (BldA) [Mass fraction]97 % Lorraine Rahman Other [employer] Other 12-21-2022 12:05-0500Body tpanws691.4 cmPconnie Rahman Other [employer] Other 12-21-2022 12:05-0500Body mass index (BMI) [Ratio] 20.31 kg/u4Fnbtkeesdras Rahman Other [employer] Other 12-21-2022 12:05-0500Body ifukki15.17 kgLorraine Rahman Other [employer] Other 12-21-2022 12:05-0500Diastolic blood yxzwcyqn45 mm[Hg] Lorraine Davismond Other [employer] Other 12-21-2022 12:05-0500Respiratory rate18 /minLorraine Rahman Other [employer] Other 12-21-2022 12:05-8030MzQ5% (BldA) [Mass fraction]100 % Lorraine Davismond Other [employer] Other 12-21-2022 12:05-0500Systolic blood kclonfzo916 mm[Hg] Lorraine Rahman Other [employer] Other Encounters Encounter DateEncounter TypeCare ProviderFacilityStart: 04-01-2025 End: 48-36-9474TiiyfmKpso Aichholz [employer] Work Phone: [facility] CWM FMComment on above:Mixed hyperlipidemiaStart: 12-22-2024 End: 67-43-4611Fpoyhl flowsheetLisa Aichholz [employer] Work Phone: [facility] CWM FMStart: 12-22-2024 End: 02-82-6411Khrwxh flowsheetLisa Aichholz [employer] Work Phone: [facility]oms CWM FMStart: 12-22-2024 End: 60-13-6340Ggrboz outpatient visit 15 minutesLisa Rosshholz [employer] Work Phone: noms CWM FMComment on above:Cervical spinal stenosis (Primary Dx); Age-related osteoporosis without current pathological fracture ([facility])Start: 12-22-2024 End: 78-46-1023kkpzebfkjyMJAA AICHHOLZNot AvailableStart: 11-30-2024 End: 69-71-7454HqxtxySoxm Aichholz [employer] Work Phone: noms CWM FMComment on above:OAB (overactive bladder) Start: 11-07-2024 End: 74-46-2618GqlhvkDpdz Aichholz [employer] Work Phone: noms CWM FMComment on above:Mixed hyperlipidemia ([facility])Start: 10-04-2024 End: 50-47-6233Ssocluucm Result EncounterLisa Aichholz [employer] Work Phone: noms External Department UnsolicitedStart: 10-04-2024 End: 40-18-4894Amnlkdqvg Result EncounterLisa Aichholz [employer] Work Phone: noms External Department UnsolicitedStart: 07-28-2024 End: 79-88-8249Uzijfsrap Result EncounterLisa Aichholz [employer] Work Phone: noms External Department UnsolicitedStart: 07-28-2024 End: 93-49-5272Jmzsiaeet Result EncounterLisa Aichholz [employer] Work Phone: noms External Department UnsolicitedStart: 07-09-2024 End: 68-45-4008JauxphQejl Aichholz [employer] Work Phone: noms CWM FMComment on above:OAB (overactive bladder) (Primary Dx)Start: 06-21-2024 End: 29-21-5470Myitwz flowsheetLisa Jeongholz [employer] Work Phone: [facility] CWM FMStart: 06-21-2024 End: 31-52-8935Atzkvr flowsheetLisa Aichholz [employer] Work Phone: [facility]WM FMStart: 06-21-2024 End: 09-87-3575Icswkoh encounter procedureLisa Adenikeholz [employer] Work Phone: noms HealthcareComment on above:Encounter for subsequent annual wellness visit (AWV) in Medicare patient (Primary Dx); Encounter for screening mammogram for malignant neoplasm of breast; OAB (overactive bladder); Age-related osteoporosis without current pathological fracture (CMS/HCC); Elevated bilirubinStart: 06-21-2024 End: 30-57-8157prahsdzqlpDDUQ ROSSHHOLZNot AvailableStart: 06-15-2024 End: 21-81-6732Crllanmsz Result EncounterLisa Aichholz [employer] Work Phone: noms External Department UnsolicitedStart: 06-15-2024 End: 89-51-5072Iacyvvchi Result EncounterLisa Aichholz [employer] Work Phone: noms External Department UnsolicitedStart: 06-15-2024 End: 56-86-9790MavelfMtun Aichholz [employer] Work Phone: noms CWM FMComment on above:Mixed hyperlipidemia (CMS/HCC)Start: 06-13-2024 End: 14-60-1228Bgdypk OnlyLisa Aichholz [employer] Work Phone: NOXY CWM FMComment on above:Mixed hyperlipidemia (CMS/HCC) (Primary Dx); Age-related osteoporosis without current pathological fracture (CMS/HCC); OAB (overactive bladder)Start: 04-03-2024 End: 83-56-7928VidpsqOskv Aichholz [employer] Work Phone: noms CWM FMComment on above:Mixed hyperlipidemia (CMS/HCC)Start: 01-20-2024 End: 86-70-9111nydwtsjsrmBBADAX C [facility] HospitalStart: 01-20-2024 End: 70-97-0804qbyjinridsSUKLFL C [facility] Hospitaltart: 56-05-8773Seiepybdj Maged Gurrola [employer] Work Phone: noms CWM FMStart: 01-20-2023 End: 48-99-5915kvonoazuzbZnjnzg Bailey Other [employer] Other Start: 34-89-3272Rklrhe outpatient visit 15 minutes Tameka VelascoFPUmm Urgent Care ClydeStart: 01-11-2023 End: 90-60-5527sddolzxkkwUcsuf Keller Other [employer] [facility] Other Start: 68-36-1855Kjzvmr outpatient visit 25 minutes Antionette [facility] ClydeStart: 11-27-2022 End: 38-19-1035bpjvhcbcpyJU KIN Neha NADERERFacility:H8Xfibc: 10-25-2022 End: 19-77-6947uzjfyztvviAmvuqg Dymond Other [employer] Other Start: 90-15-8287Krrsok outpatient visit 15 minutes Lorrainezack RahmanFPG Ur[facility] Care ClydeStart: 09-26-2022 End: 59-16-9875crlfwchthrGHB KAROL GURROLAFacility:J3Qeukb: 83-54-9363Mcgbqi outpatient new 20 minutesPamela DymondFPG Urgent Care ClydeStart: 07-30-2022 End: 93-49-3801snedjqrqryVzthqi LaceyFacility:[facility] Start: 07-30-2022 End: 07-12-2783hwxbebfvjtJU-C Lorraine Rahman Work Phone: [facility] Work Phone: Start: 07-30-2022 End: 95-79-1410Xbvbjuv encounter procedureNPSonya Rahman Work Phone: [facility] Start: 07-30-2022 End: 53-73-4186zwdmnuaxmgYK RADHA TIMMISFacility:L4Zwona: 05-06-2022 End: 13-82-4347tajisfqucjXWW KAROL GURROLAFacility:H1 Procedures DateProcedureProcedure DetailPerforming ClinicianStart: 40-47-6213LC TOMOSYNTHESIS SCREENING Varsha Gurrola [employer] Work Phone: Start: 10-76-8745YOI CMP (CMP) (FOR REMOTE [facility] USE) Karol Gurrola [employer] Work Phone: Start: 02-60-8520BSD CBC WITH AUTO DIFFLisa Galileo [employer] Work Phone: Start: 60-73-2162L-ray of left ankleNPSonya Rahman Work Phone: Plan of Treatment DateCare ActivityDetailAuthorStart: 06-27-2025 End: 74-58-5648Mqujgqi encounter vbnpbgkya15/18/2025 10:00 AM EST Office Visit [facility] [address] [place] [phone] Karol Gurrola NP [address] [place] [id number] [facility] FMStart: 11-12-2025Medicare Annual Wellness (AWV) Medicare Annual Wellness (AWV)[facility] HealthcareStart: 48-29-9483Meenghrbg vaccinationInfluenza Vaccine (#1)[facility] HealthcareStart: 12-22-2024 End: 41-91-6339Fjnwefj encounter lxceqqqea79/15/2025 2:00 PM EDT Office Visit [facility] [address] [place] [phone] Karol Gurrola, G[place]ON [address] [place] [address] Cervical spinal stenosis (Primary Dx); Age-related osteoporosis without current pathological fracture (CMS/HCC)[facility] FMComment on above:Cervical spinal stenosis (Primary Dx); Age-related osteoporosis without current pathological fracture (CMS/HCC)Start: 10-02-2024 End: 44-98-2703VX Breast - bilateral ScreeningBilateral screening mammogram Imaging Routine Encounter for screening mammogram for malignant neoplasm of breast Expected: 10/02/2024 (Approximate), Expires: 08/21/2025[facility] Work Phone: Comment on above:Expected: 10/02/2024 (Approximate), Expires: 08/21/2025Start: 06-21-2024 End: 74-68-5008Xdnjrrrwtwxtb metabolic 2000 panel - Serum or PlasmaComprehensive metabolic panel Lab Routine Age-related osteoporosis without current pathological fracture (CMS/HCC) Elevated bilirubin Expected: 06/21/2024 (Approximate), Expires: 06/21/2025[facility] HealthcareComment on above:Expected: 06/21/2024 (Approximate), Expires: 06/21/2025Start: 06-21-2024 End: 11-93-0138Oxnmbro encounter jwsxnguyi68/12/2024 10:00 AM EST Office Visit [facility] [address] [place] [phone] Karol Gurrola NP [address] [place] [phone] [facility] CW FMStart: 06-13-2024 End: 94-30-864110086119-sxsyegqjnacahv D3 [Mass/volume] in Serum or PlasmaVitamin D 25 hydroxy Lab Routine Age-related osteoporosis without current pathological fracture (CMS/HCC) Expected: 06/13/2024 (Approximate), Expires: 06/13/2025[facility] HealthcareComment on above:Expected: 06/13/2024 (Approximate), Expires: 06/13/2025Start: 06-13-2024 End: 65-55-8459PMQ W Auto Differential panel - BloodCBC and differential Lab Routine OAB (overactive bladder) Expected: 06/13/2024 (Approximate), Expires: 06/13/2025[facility] Work Phone: Comment on above:Expected: 06/13/2024 (Approximate), Expires: 06/13/2025Start: 06-13-2024 End: 15-48-2069Ksvvjjylnmqyh metabolic 2000 panel - Serum or PlasmaComprehensive metabolic panel Lab Routine Mixed hyperlipidemia (CMS/HCC) Age-related osteoporosis without current pathological fracture ([facility]/HCC) OAB (overactive bladder) Expected: 06/13/2024 (Approximate), Expires: 06/13/2025[facility] Healthcare Comment on above:Expected: 06/13/2024 (Approximate), Expires: 06/13/2025Start: 06-13-2024 End: 54-45-7696Ubejk 1996 panel - Serum or PlasmaLipid panel Lab Routine Mixed hyperlipidemia (CMS/HCC) Expected: 06/13/2024 (Approximate), Expires:06/13/2025 [facility] HealthcareComment on above:Expected: 06/13/2024 (Approximate), Expires: 06/13/2025Start: 06-13-2024 End: 16-84-9980Pvnzjipubv complete panel - UrineUrinalysis with reflex microscopic (clean catch) Lab Routine OAB (overactive bladder) Expected: 11/2023 (Approximate), Expires: 06/13/2025[facility] HealthcareComment on above: Expected: 06/13/2024 (Approximate), Expires: 06/13/2025Start: 10-24-2024Medicare Annual Wellness (AWV)Medicare Annual Wellness (AWV)[facility] HealthcareStart: 45-21-5379Dtwfkuwhk vaccinationInfluenza Vaccine (#1)[facility] HealthcareStart: 09-16-2023 End: 42-66-1081QX Breast - bilateral ScreeningBilateral screening mammogram Imaging Routine Encounter for screening mammogram for malignant neoplasm of breast Expected: 09/16/2023 (Approximate), Expires: 11/14/2024[facility] Healthcare Work Phone: Comment on above:Expected: 09/16/2023 (Approximate), Expires: 11/14/2024Start: 11-55-6094Ibndclmjnykx Vaccine: 65+ Years (2 - PCV) Pneumococcal Vaccine: 65+ Years (2 - PCV)[facility] HealthcareStart: 04-17-2021 Pneumococcal Vaccine: 65+ Years (2 of 2 - PCV)Pneumococcal Vaccine: 65+ Years (2 of 2 - PCV)[facility] 1947Medicare Annual Wellness (AWV) Medicare Annual Wellness (AWV)[facility] Immunizations Immunization DateImmunizationNotesCare RraucfrjNxhwzcgv59-32-1845Tlmmyjnqgiaf Conjugate PCV 20Lisa Aichholz [employer] Work Phone: [place] [phone]iudsgyq, high dose seasonal, preservative-freeLisa Aichholz [employer] Work Phone: [facility] CenterLsutiiiqva11-09-4265cxltyxvsp virus vaccine, unspecified formulationLisa Aichholz [employer] Work Phone: [place] [address]Eymkgpuwiw74-33-4802Eqogmnzli, Seasonal, Quadrivalent, AdjuvantedLisa Aichholz [employer] Work Phone: [place] [address]Rcimkzhdwf51-03-2151ajbueufqb virus vaccine, unspecified formulationLisa Aichholz [employer] Work Phone: [place] [address]Znrdrdkibc80-36-3536Qmvvusvhr, High-dose Seasonal, Quadrivalent, Preservative FreeLisa Aichholz [employer] Work Phone: [place] [phone]onsdcll, Seasonal, Quadrivalent, AdjuvantedLisa Aichholz [employer] Work Phone: [place] [address]Ajhwwxstjn78-19-9106xzeloccdk, injectable, quadrivalent, preservative freeLisa Aichholz [employer] Work Phone: [phone] [place], [place] [address]Tcqdcfxbjq15-46-3645srdyjxxqvlfj polysaccharide vaccine, 23 valentLisa Aichholz [employer] Work Phone: [phone] [place], [place] [address]Zogztirjgm37-52-7847Fosdjnpa trivalent influenza vaccine, adjuvanted, preservative freeLisa Aichholz [employer] Work Phone: [phone] [place], [place] [address]Gxmxmvrjcb38-97-6316lerloitel, injectable, quadrivalent, preservative freeLisa Aichholz [employer] Work Phone: [phone] [place], [place] [address]Jpflpldtgl67-73-5319ibdlufpzr, injectable, quadrivalent, preservative freeLisa Aichholz [employer] Work Phone: [phone] [place], [place] [address]Cnvoumkkfz63-27-7597hscwcylju, injectable, quadrivalent, preservative freeLisa Aichholz [employer] Work Phone: [phone] [place], [place] [address]Nkocaewond12-46-1646oflghkzrw, seasonal, injectable, preservative freeLisa Aichholz [employer] Work Phone: [phone] [place], [place] [address]Fvlkniwqmc55-20-2078pgurnbvxplho polysaccharide vaccine, 23 valentLisa Aichholz [employer] Work Phone: [phone] [place] [address] Payers DatePayer CategoryPayerPolicy [id number] [id number] 2023MedicareAETNA MEDICARE ADVANTAGE AETNA MEDICARE REPLACEMENT [id number] 2022-Present [address] [place] [id number] Health Insurance [id number] 2.16.840.1.567882.3.5[id number] [id number] 2.16.840.1.780996.3.57[id number] 2.16.840.1.736875.3.57[id number] 2.16.840.1.597599.3.57[id number] 2.16.840.1.689832.[id number] 2.16.840.1.717029.3.579.2.1259Private Health InsuranceAetna Mcr PFFS Non Pt [id number] [id number] Social History DateTypeDetailFacilityTobacco smoking status NHISUnknown if ever smokedMain Campus Medical Center Work Phone: Start: 26-98-9265Stb [facility]: 08-18-2023 End: 45-97-1261Fya [facility]igned At [facility] HealthcareStart: 61-72-0883Badrpad smoking status NHISNever smoked tobaccoNODE HealthcareStart: 08-18-2023 End: 89-97-3578Wpeehzn of Social functionNOMS HealthcareStart: 46-58-9850Iwc Assigned At BirthNot on fileNOMS HealthcareHow often do you need to have someone help you when you read instructions, pamphlets, or other written material from your doctor or pharmacy [SILS]NeverNOMS HealthcareDo you belong to any clubs or organizations such as yarsani groups, unions, fraternal or athletic groups, or school groups?YesNOMS HealthcareAre you now , , , , never or living with a partner?MarriedNOMS HealthcareHow often to you have a drink containing alcohol?Monthly or lessNOMS HealthcareHow many standard drinks containing alcohol do you have on a typical day?1 or 2NOMS HealthcareHow often do you have 6 or more drinks on 1 occasion?NeverNOMS HealthcareDo you feel stress - tense, restless, nervous, or anxious, or unable to sleep at night because yourmind is troubled all the time - these days [OSQ] Only a littleNOMS Healthcare(I/We) worried whether (my/our) food would run out before (I/we) got money to buy more.Never trueNOMS HealthcareIn the past 12 months, was there a time when you were not able to pay the mortgage or rent on time?NoNOMS Healthcare Clinical Notes 07-30-2022 to 12-22-2024 Note Date & EamzEfpqFztejnze83-70-9110 History of Present illness Narrative* KESHA HUITRON - 12/22/2024 2:00 PM EDT Neck pain-started back 4-5 days ago she has been doing stretches and exercises. Two days ago she states that it felt better she is unsure how, it is more of an ache now instead of PAIN She takes motrin for pain relieve but would like to know what she can other than PT or what other choices are there for her neck pain She Had this back in '23 went to PT in '24 s finished PT with home exercise to do and never had issue until now. * Karol Gurrola NP - 12/22/2024 2:00 PM EDT Images from the original note were not included. Sandy Bhandari is a 79 y.o. female presents with chief complaint of Neck Pain HPI: Neck Pain This is a recurrent problem. The current episode started 1 to 4 weeks ago. The problem occurs daily. The problem has been gradually improving. The pain is associated with nothing. The pain is presentin the left side. The quality of the pain is described as aching. The pain is at a severity of 4/10. The pain is moderate. Nothing aggravates the symptoms. Pertinent negatives include no chest pain, fever, headaches, numbness, paresis, tingling, trouble swallowing, visual change or weakness. She has tried NSAIDs for the symptoms. The treatment provided mild relief. SUBJECTIVE: MEDICATIONS: Current Outpatient Medications Medication Instructions ASPIRIN LOW DOSE ADULT PO 81 mg, Daily atorvastatin (LIPITOR) 40 mg, Oral, Nightly calcium citrate 600 mg and vitamin D3 (Citrical & Minerals + Vit D) 600-200 MG- UNIT tablet 1 tablet, Every 12 hours cholecalciferol (Vitamin D-3) 25 MCG (1000 UT) capsule 1 capsule, 2 times daily oxybutynin XL (DITROPAN-XL) 15 mg, Oral, Every morning zoledronic acid (RECLAST) 5 mg, Intravenous, Once ALLERGIES: No Known Allergies REVIEW OF SYMPTOMS: Review of Systems Constitutional: Negative for appetite change, chills and fever. HENT: Negative for congestion, ear pain, sore throat and trouble swallowing. Eyes: Negative for pain, discharge, redness and visual disturbance. Respiratory: Negative for cough, shortness of breath and wheezing. Cardiovascular: Negative for chest pain, palpitations and leg swelling. Gastrointestinal: Negative for abdominal pain, blood in stool, constipation, diarrhea, nausea and vomiting. Genitourinary: Negative for difficulty urinating, dysuria and frequency. Musculoskeletal: Positive for neck pain. Negative for arthralgias, back pain, joint swelling and myalgias. Skin: Negative for rash and wound. Neurological: Negative for dizziness, tingling, tremors, seizures, syncope, weakness, numbness and headaches. Psychiatric/Behavioral: Negative for behavioral problems, [...] not on file. OBJECTIVE: Visit Vitals BP 130/76 (BP Location: Left arm, Patient Position: Sitting, BP Cuff Size: Adult long) Pulse 67 Temp 98 F (Temporal) Resp 18 Wt 105 lb 9.6 oz SpO2 99% BMI 20.28 kg/m Smoking Status Never BSA 1.43 m Physical Exam Vitals and nursing note reviewed. Constitutional: General: She is not in acute distress. Appearance: Normal appearance. HENT: Head: Normocephalic and atraumatic. Right Ear: External ear normal. Left Ear: External ear normal. Nose: Nose normal. Mouth/Throat: Mouth: Mucous membranes are moist. Eyes: Extraocular Movements: Extraocular movements intact. Conjunctiva/sclera: Conjunctivae normal. Cardiovascular: Rate and Rhythm: Normal rate and regular rhythm. Pulses: Normal pulses. Heart sounds: Normal heart sounds. Pulmonary: Effort: Pulmonary effort is normal. Breath sounds: Normal breath sounds. Abdominal: General: Bowel sounds are normal. There is no distension. Palpations: Abdomen is soft. There is no mass. Tenderness: There is no abdominal tenderness. Musculoskeletal: Cervical back: Normal range of motion and neck supple. Right lower leg: No edema. Left lower leg: No edema. Comments: Paracervical tenderness/tightness L>R MMT 5/5 bilat UE, DTRs 2+ bilat UE/LE Cervical near full ROM, some limitation to rotation to right Skin: General: Skin is warm and dry. [...] file. Problem List Items Addressed This Visit Cervical spinal stenosis - Primary Hx of cervical stenosis OTC Ibuprofen Ice to affected area 3-4 times daily 20 minutes each Stretching exercises, may try message therapy If not better in next few weeks call and will order PT Age-related osteoporosis without current pathological fracture (CMS/HCC) DEXA is UTD was done 09/26/2022 Had reclast 07/28/24 * Karol Gurrola NP - 12/22/2024 6:54 AM EDTAssociated Problem(s): Age-related osteoporosis without current pathological fracture (CMS/HCC) DEXA is UTD was done 09/26/2022 Had reclast 07/28/24 * Karol Gurrola NP - 12/22/2024 6:53 AM EDTAssociated Problem(s): Cervical spinal stenosis Hx of cervical stenosis OTC Ibuprofen Ice to affected area 3-4 times daily 20 minutes each Stretching exercises, may try message therapy If not better in next few weeks call and will order PT documented in this [facility]05-15-2025 Instructions* Patient Instructions* Karol Gurrola NP - 12/22/2024 2:00 PM EDT Ice to affected area 3-4 times daily for 20 minutes at a time Stretching exercises Ibuprofen over the count 3 pills (600mg) 2-3 times daily (take with food) If not better in 2 weeks, call office and I will order PT documented in this [facility]11-12-2024 History of Present illness Narrative* Karol Gurrola NP - 06/21/2024 10:55 AM ESTAssociated Problem(s): Elevated bilirubin Check labs in 1 month * Karol Gurrola NP - 06/21/2024 10:47 AM ESTAssociated Problem(s): Age-related osteoporosis without current pathological fracture (CMS/HCC) No changes in dose of supplements Order reclast infusion * Karol Gurrola NP - 06/21/2024 10:47 AM ESTAssociated Problem(s): OAB (overactive bladder) Is doing well with use of med Continue taking * Karol Gurrola NP - 06/21/2024 10:00 AM EST Images from the original note were not [...] (Citrical & Minerals + Vit D) 600-200 MG- UNIT tablet 1 tablet, Oral, Every 12 hours [...] Visit Age-related osteoporosis without current pathological fracture (CMS/[facility]) No changes in dose of supplements [...] conditions allow) Follow up yearly and prn * Karol Gurrola NP - 06/21/2024 6:45 AM ESTAssociated Problem(s): Encounter for subsequent annual wellness visit (AWV) in Medicare patient Reviewed Ht/Wt/BMI Recommend eye exam yearly Recommend dental exams twice a year Balance work/leisure activities Exercises is recommended most days of the week (appropriate as chronic conditions allow) Follow up yearly and prn documented in this [facility]11-12-2024 Instructions* Patient Instructions* Karol Gurrola NP - 06/21/2024 10:00 AM EST Repeat liver test early July Reclast early July labs the day of that appt [facility] Should call you to schedule documented in this [facility]02-07-2024 Telephone encounter Note* Telephone Encounter - Karol Gurrola NP - 09/16/2023 10:39 AM EST Mammogram order [facility] [id number] Miscellaneous Notes* Telephone Encounter - Karol Gurrola NP - 09/16/2023 10:39 AM EST Mammogram order documented in this [facility]06-13-2023 Evaluation note* Encounter Date Diagnosis Assessment Notes Treatment Notes Treatment Clinical Notes Jan, Acute non-recurrent maxillary si nusitis (ICD-10 - J01.00) Given duration of symptoms, will treat for sinusitis with augmentin. Finish entire course. Probiotic supplement encouraged. May use Mucinex DM, Claritin, Flonase for symptomatic treatment. May use Tylenol/ibuprofen for any pain or fever. Follow-up with PCP if symptoms or not gradually improving over the next 5 to 7 days, sooner if significantly worsening. [facility] Other 06-04-2023 Evaluation note* Encounter Date Diagnosis Assessment Notes Treatment Notes Treatment Clinical Notes Jan, Viral URI with cough (ICD-10 - J 06.9) No testing performed today in office. Advised patient that will treat as viral URI. Advised that viral syndromes last 7 to 10 days, antibiotics are not indicated at this time. We will send in Rx of prednisone and Marcella to use as directed. Encouraged supportive care as directed, increase fluids andrest, Tylenol/Motrin as directed, OTC Flonase, cool mist [...] treatment plan. Patient left in stable condition. [facility] Other 03-18-2023 Evaluation note* Encounter Date Diagnosis Assessment Notes Treatment Notes Treatment Clinical Notes Oct, Nasal congestion (ICD-10 - R09.8 1) Oct,cute sinusitis, recurrence not specified, unspecified location (ICD-10 - J01.90)Sinusitis home care material was printed Drink plenty fluids, get plenty of rest. Take the amoxicillin with clavulanate as prescribed until gone. Use the fluticasone nasal spray as prescribed until your symptoms improve. Continue home medications as prescribed. You may continue take the Robitussin as needed for cough. Follow-up with your family physician if no improvement in 2 to 3 days. [facility] Other 12-21-2022 Evaluation note* Encounter Date Diagnosis [...] swelling. Follow-up with your family physician if noimprovement in 5 to 7 days [facility] Other Evaluation noteNo assessment information available [facility] Work Phone: Evaluation note* Diagnosis Encounter for screening mammogram for malignant neoplasm of breast- Primary documented in this encounter [facility] HealthcareEvaluation note* Diagnosis Cervical spinal stenosis- Primary Spinal stenosis in cervical region BMI 20.0-20.9, adult Other chest pain Mixed hyperlipidemia (CMS/HCC)- Primary Mixed hyperlipidemia Age-related osteoporosis without current pathological fracture (CMS/HCC) OAB (overactive bladder) documented in this encounter [facility] HealthcareEvaluation note* Diagnosis Cervical spinal stenosis- Primary Spinal stenosis in cervical region BMI 20.0-20.9, adult Other chest pain Mixed hyperlipidemia (CMS/HCC) Mixed hyperlipidemia documented in this encounter [facility]Evaluation note* Diagnosis Cervical spinal stenosis- Primary Spinal stenosis in cervical region BMI 20.0-20.9, adult Other chest pain Encounter for subsequent annual wellness visit (AWV) in Medicare patient- Primary Encounter for screening mammogram for malignant neoplasm of breast OAB (overactive bladder) Age-related osteoporosis without current pathological fracture (CMS/HCC) Elevated bilirubin documented in this encounter [facility]* Diagnosis Cervical spinal stenosis- Primary [...] Mixed hyperlipidemia documented in this encounter [facility]* Diagnosis Cervical spinal stenosis- Primary Spinal stenosis in cervical region BMI 20.0-20.9, adult Other chest pain Encounter for subsequent annual wellness visit (AWV) in Medicare patient- Primary Encounter for screening mammogram for malignant neoplasm of breast OAB (overactive bladder) Age-related osteoporosis without current pathological fracture (CMS/HCC) Elevated bilirubin Mixed hyperlipidemia (CMS/HCC) Mixed hyperlipidemia documented in this encounter [facility]* Diagnosis Cervical spinal stenosis- Primary Spinal stenosis in cervical region BMI 20.0-20.9, adult Other chest pain Encounter for subsequent annual wellness visit (AWV) in Medicare patient- Primary Encounter for screening mammogram for malignant neoplasm of breast OAB (overactive bladder) Age-related osteoporosis without current pathological fracture (CMS/HCC) Elevated bilirubin OAB (overactive bladder) documented in this encounter [facility]* Diagnosis Cervical spinal stenosis- Primary Spinal stenosis in cervical region BMI 20.0-20.9, adult Other chest pain Encounter for subsequent annual wellness visit (AWV) in Medicare patient- Primary Encounter for screening mammogram for malignant neoplasm of breast OAB (overactive bladder) Age-related osteoporosis without current pathological fracture (CMS/HCC) Elevated bilirubin Cervical spinal stenosis- Primary Spinal stenosis in cervical region Age-related osteoporosis without current pathological fracture (CMS/HCC) documented in this encounter [facility] HealthcareEvaluation note* Diagnosis Cervical spinal stenosis- Primary Spinal stenosis in cervical region BMI 20.0-20.9, adult Other chest pain Encounter for subsequent annual wellness visit (AWV) in Medicare patient- Primary Encounter for screening mammogram for malignant neoplasm of breast OAB (overactive bladder) Age-related osteoporosis without current pathological fracture Elevated bilirubin Cervical spinal stenosis- Primary Spinal stenosis in cervical region Age-related osteoporosis without current pathological fracture Mixed hyperlipidemia Mixed hyperlipidemia documented in this encounter [facility] HealthcareHistory general Narrative - Reported* Type Description Date Medical History hyperlipidemia Medical HistoryOAB (overactive bladder)Surgical HistoryhysterectomySurgical HistoryD&CSurgical HistorytonsillectomyHospitalization HistorySee Above [facility] Other Chief Complaint and Reason for Visit [...] Dates Lorraine Rahman NP-C Attending Provider Active Team MemberRelationshipSpecialtyStart DateEnd Date Kin Fofana MD PCP - GeneralFamily Medicine02/05/23Team MemberRelationshipSpecialtyStart DateEnd Date Kin Fofana MD PCP - GeneralFamily Medicine02/05/23 Karol Gurrola NP [address] [place] [address] PCP - [employer]08/10/23Team MemberRelationshipSpecialtyStart DateEnd Date iKn Fofana MD [facility] - [facility]/05/23 Karol Gurrola NP [address] [place] [address] PCP - [employer]08/10/23Team MemberRelationshipSpecialtyStart DateEnd Date Kni Fofana MD PCP - [facility]02/05/23 Karol Gurrola NP [address] [place] [address] PCP - [employer]08/10/23Team MemberRelationshipSpecialtyStart DateEnd Date Karol Gurrola NP [address] [place] [address] PCP - [employer]08/10/23 Kin Fofana MD [address] [place] [address] PCP - [facility]06/21/24Team MemberRelationshipSpecialtyStart Date End Date Karol Gurrola NP [address] [place] [address] PCP - [employer]08/10/23 Kin Fofana MD [address] [place] [address] PCP - [facility] Cntchhxt25/12/24Team MemberRelationshipSpecialtyStart Date End Date Karol Gurrola NP [address] [place] [address] PCP - [employer]08/10/23 Kin Fofana MD [address] [place] [address] PCP - [facility]06/21/24Team MemberRelationshipSpecialtyStart Date End Date Karol Gurrola NP [address] [place] [address] PCP - [employer]08/10/23 Kin Fofana MD [address] [place] [address] PCP - [facility]06/21/24Te MemberRelationshipSpecialtyStart Date End Date Karol Gurrola NP [address] [place] [address] PCP - [employer]et08/10/23 Kin Fofana MD [address] [place] [address] PCP - [facility]06/21/24Team MemberRelationshipSpecialtyStart Date End Date Karol Gurrola NP [address] [place] [address] PCP - [employer]08/10/23 Kin Fofana MD [address] [place] [address] PCP - GeneralFamily Tppaairu40/12/24 Goals (unrecognized section and content) Goals may be documented in a n alternate sectionNo InformationNo InformationNo InformationNo Information INFORMATION SOURCE (unrecogn ized section and content) DATE CREATED AUTHOR 08/02/2022 [facility] DATE CREATED AUTHOR AUTHOR'S ORGANIZ ATION 11/28/2022 [facility] DATE CREATED AUTHOR AUTHOR'S ORGANIZ ATION 01/29/2024 [facility] DATE CREATED AUTHOR AUTHOR'S ORGANIZ ATION 12/23/2024 [facility] EPIC REASON FOR VISIT (unrecogniz ed section and content) ReasonCommentsMed RefillReasonCommentsNeck Pain FOR RECORDS PERTAINING TO PATIENTS WHO ARE [...] BE BASED ON THE PRIMARY CLINICAL RECORDS. [facility]. provides no warranty or guarantee of the accuracy or completeness of information in this document.
--- OUTSIDE RECORDS SUMMARY | 2025-06-01 06:23 | XMS_ITS | Clinical Summary ---
Author Organization [facility] Healthcare Address [address] [place] [address] Care Team Providers Care Shoder Filler Name Role Phone Karol Gurrola NP Unavailable [phone] Kin oFfana MD Primary Care Provider [phone] Allergies No known active allergies Medications MedicationSigDispense QuantityRefillsLast FilledStart DateEnd DateStatus calcium citrate 600 mg and vitamin D3 (Citrical & Minerals + Vit D) 600-200 MG- UNIT tablet Take 1 tablet by mouth every 12 (twelve) hoursActive ASPIRIN LOW DOSE ADULT PO Take 81 mg by mouth DailyActive cholecalciferol (Vitamin D-3) 25 MCG (1000 UT) capsule Take 1 capsule by mouth in the morning and 1 capsule in the evening.Active zoledronic acid (Reclast) 5 MG/100ML solution Infuse 5 mg into a venous catheter 1 (one) timeActive atorvastatin (Lipitor) 40 MG tablet Indications:Mixed hyperlipidemiaTake 1 tablet (40 mg) by mouth at bedtime 90 tablet 5Active Active Problems ProblemNoted DateDiagnosed DateEncounter for subsequent annual wellness visit (AWV) in Medicare xfthzyc8206/21/2024 Assessment & Plan (06/21/2024 6:45 AM EST): Reviewed Ht/Wt/BMI Recommend eye exam yearly Recommend dental exams twice a year Balance work/leisure activities Exercises is recommended most days of the week (appropriate as chronic conditions allow) Follow up yearly and prn Elevated rzccmglbu24/12/2024 Assessment & Plan (06/21/2024 10:55 AM EST): Check labs in 1 month Encounter for screening mammogram for malignant neoplasm of ldeglo1409/16/2023ge- related osteoporosis without current pathological foddqyyl53/30/2024 Overview (07/28/2024): DEXA: 09/26/2022, osteoporosis Reclast: 07/28/2024 Assessment & Plan (12/22/2024 6:54 AM EDT): DEXA is UTD was done 09/26/2022 Had reclast 07/28/24 Assessment & Plan (06/21/2024 10:49 AM EST): No changes in dose of supplements Order reclast infusion Ybwabxr0209/08/2023Infantile idiopathic bfohnhmkl70/30/5079Vwknlrmikv48/30/2024 Idiopathic fnwygthgh05/30/4708Gdtosqpclrvskj31/30/2024OAB (overactive bladder) 09/08/2023 Assessment & Plan (06/21/2024 10:47 AM EST): Is doing well with use of med Continue taking BMI 20.0-20.9, adult08/18/2023Other chest pain08/18/2023 Assessment & Plan (08/18/2023 12:59 PM EST): Sent to [facility] er for evaluation, risk factors CAD, female, hyperlipidemia Report called to Dr Pradhan, pt stable at time of leaving office, no acute distress Discussed with pt why going to ER: diff ACS, PE Agrees with proceeding to ER 08/19/23 12:55pm: spoke with Dr Pradhan, ER work up negative labs and EKG, will order out patient stress test Cervical spinal dqhlsxoc85/09/2024 Assessment & Plan (12/22/2024 2:33 PM EDT): Hx of cervical stenosis OTC Ibuprofen Ice to affected area 3-4 times daily 20 minutes each Stretching exercises, may try message therapy If not better in next few weeks call and will order PT Assessment & Plan (08/18/2023 10:18 AM EST): Hx of cervical stenosis, will evaluate chest pain first and then after cardiac cleared will check into cervical Likely need xray and PT Encounters DateTypeDepartmentCare QjtwTmpcuwanrmi10/23/2025Refill [facility] [address] [place] [address] Karol Gurrola, [employer] Mixed hyperlipidemiafrom Last 3 Months Immunizations ImmunizationAdministration DatesNext DueInfluenza, High Dose Seasonal, Preservative Free04/29/2024Influenza, High-dose Seasonal, Quadrivalent, Preservative Free04/13/2022Influenza, Seasonal, Quadrivalent, Adjuvanted 05/05/2023,04/30/2021Influenza, injectable, quadrivalent, preservative free 04/17/2020,03/29/2018,04/23/2017,05/13/2016Influenza, seasonal, injectable, preservative free05/10/2016Influenza, trivalent, vskssqdtbo61/10/2019 Pneumococcal Conjugate PCV 4Pneumococcal Polysaccharide PPSV23 04/17/2020,05/10/2015 Social History Tobacco UseTypesPacks/DayYears UsedDateSmoking Tobacco: Never Tobacco Cessation:Counseling Given: Not Answered B1300 Health LiteracyAnswerDate RecordedHow often do you need to have someone help you when you read instructions, pamphlets, or other written material from your doctor or pharmacy?Never06/21/2024Social Connection and Isolation Panel AnswerDate RecordedIn a typical week, how many times do you talk on the phone with family, friends, or neighbors?More than three times a week06/21/2024How often do you get together with friends or relatives?More than three times a week 06/21/2024How often do you attend catholic or hindu services?More than 4 times per year06/21/2024o you belong to any clubs or organizations such as catholic groups, unions, fraternal or athletic groups, or school groups?Yes06/21/2024How often do you attend meetings of the clubs or organizations you belong to?More than 4 times per year06/21/2024re you , , , , never , or living with a partner?Zlwqnca3406/21/2024UDIT-CAnswerDate RecordedQ1: How often do you have a drink containing alcohol?Monthly or less 06/21/2024Q2: How many drinks containing alcohol do you have on a typical day when you are drinking?1 or Q3: How often do you have six or more drinks on one occasion?Never06/21/2024Overall Financial Resource Strain (CARDIA) AnswerDate RecordedHow hard is it for you to pay for the very basics like food, housing, medical care, and heating?Not hard at all06/21/2024HQ-2AnswerDate RecordedPatient Health Questionnaire-2 Tohtx78008/21/2023[facility] - Occupational Stress QuestionnaireAnswerDate RecordedDo you feel stress - tense, restless, nervous, or anxious, or unable to sleep at night because yourmind is troubled all the time - these days?Only a gohmdr2306/21/2024 Exercise Vital SignAnswerDate RecordedOn average, how many days per week do you engage in moderate to strenuous exercise (like a brisk walk)?5 days06/21/2024On average, how many minutes do you engage in exercise at this level?30 min 06/21/2024Hunger Vital SignAnswerDate RecordedWithin the past 12 months, you worried that your food would run out before you got the money to buymore.Never true06/21/2024Within the past 12 months, the food you bought just didn't last and you didn't have money to get more.Never true06/21/2024RAPARE - TransportationAnswerDate RecordedIn the past 12 months, has lack of transportation kept you from medical appointments or from getting medications?No 06/21/2024In the past 12 months, has lack of transportation kept you from meetings, work, or from getting things needed for daily living?No06/21/2024 Housing Stability Vital SignAnswerDate RecordedIn the last 12 months, was there a time when you were not able to pay the mortgage or rent on time?No06/21/2024 Number of Times Moved in the Last YearNot on file4At any time in the past 12 months, were you homeless or living in a residential (including now)?No 06/21/2024CommentsUnknownSex and Gender InformationValueDate RecordedSex Assigned at BirthNot on fileLegal FjgZtlyxo91/15/2023 7:36 PM EDTGender Identity Not on fileSexual OrientationNot on file Last Filed Vital Signs Vital SignReadingTime TakenCommentsBlood Wcmynrll941/76012/22/2024 2:02 PM EDT Xiehm703212/22/2024 2:02 PM PDNBugzpxwxbbe63.7 ??C (98 ??F)12/22/2024 2:02 PM EDT Respiratory Eion005812/22/2024 2:02 PM EDTOxygen Oiprkmeyxl04%12/22/2024 2:02 PM EDTInhaled Oxygen Concentration--Prugvj94.9 kg (105 lb 9.6 oz)12/22/2024 2:02 PM COBZubmab429.7 cm (5' 0.5 )06/21/2024 10:10 AM ESTBody Mass Index20.28108/21/2023 10:10 AM EST Plan of Treatment Health MaintenanceDue DateLast DoneCommentsInfluenza Vaccine (#1)04/10/2025 04/29/2024, 05/05/2023, 04/13/2022, Additional history existsMedicare Annual Wellness (AWV)514Pneumococcal Vaccine: 65+ YearsCompleted 07/04/2024, 04/17/2020, 05/10/2015 Insurance Care Teams Team MemberRelationshipSpecialtyStart DateEnd Date Karol Gurrola NP [address] [place] [phone] PCP - Aet08/10/23 Kin Fofana MD [address] [place] [phone] [facility]ifu35/12/24
--- OUTSIDE RECORDS SUMMARY | 2025-06-01 06:23 | XMS_ITS | Clinical Summary ---
Author Organization [facility] tem Address [facility] [id number] [address] [place] [address] Care Team Providers Care Manager Culinary Name Role Phone Unavailable Primary Care Provider Unavailabl e Immunizations ImmunizationAdministration DatesNext DueCOVID-19, mRNA, LNP-S, PF, 30mcg/0.3mL Dose10/22/2020,10/01/2020 Social History Tobacco UseTypesPacks/DayYears UsedDateSmoking Tobacco: Never AssessedChildcare AnswerDate PagivannCeazyvpyvPyeykxb74/20/2021EmploymentAnswerDate Recorded ZurmfacowzEddtfat05/20/2021Purpose - LifeAnswerDate RecordedPurpose and direction in xrkzXrgmvwd18/20/2021CommentsUnknownSex and Gender InformationValueDate RecordedSex Assigned at BirthNot on fileLegal SexFemale 03/15/2015 11:47 AM EDTGender IdentityNot on fileSexual OrientationNot on file Plan of Treatment Health MaintenanceDue DateLast DoneCommentsDepression Blbyfkpag57/23/1959Tobacco Adaibuwuv03/23/1959DTaP,Tdap and Td Vaccines (1 - Tdap)1966Zoster (Shingles) Vaccine (1 of 2)1997Fall Risk Mpjsjmjap19/23/2012COVID-19 Vaccine (3 - 2024- season)503/, 10/01/2020Influenza Vaccine 509/03/2020, 04/19/2019, 03/29/2018, Additional history exists Medical Devices Not on file Insurance
[2025-06-01 07:03] LABS: Hematocrit 40.7 % (36.0-48.0); Hemoglobin 13.7 g/dL (12.0-16.0); Immature Granulocytes Abs Auto 0.00 10^3/uL (0.00-0.03); Immature Granulocytes Pct Auto 0.0 % (0.0-0.5); Lymphocytes Absolute Auto 1.3 10^3/uL (1.2-3.8); Mean Corpuscular HGB Conc 33.7 g/dL (29.9-35.2); Mean Corpuscular Hemoglobin 31.3 pg (26.7-34.0); Mean Corpuscular Volume 92.9 fL (81.0-99.0); Platelet Count 278 10^3/uL (150-450); Red Blood Count 4.38 10^6/uL (4.20-5.40); White Blood Count 5.9 10^3/uL (4.0-11.0)
[2025-06-01 07:09] LABS: Glucose Urine UA NEGATIVE (NEGATIVE)
[2025-06-01 07:38] LABS: Alanine Aminotransferase 26 U/L (14-59); Albumin Globulin Ratio 1.0; Albumin Level 3.6 g/dL (3.4-5.0); Alkaline Phosphatase 94 U/L (46-116); Anion Gap 13.4; Aspartate Amino Transferase 20 U/L (15-37); Blood Urea Nitrogen 16.0 mg/dL (7.0-18.0); Calcium 8.7 mg/dL (8.5-10.1); Carbon Dioxide 25.9 mmol/L (21.0-32.0); Chloride 95 mmol/L (98-107); Cholesterol 205 mg/dL (<=200); Estimated GFR (African America >60 (>=60 mL/min/1.73m^2); Estimated GFR (Non-African Ame >60 (>=60 mL/min/1.73m^2); Globulin 3.7 g/dL; Glucose 100 mg/dL (74-106); HDL Cholesterol 59 mg/dL (40-60); Potassium 4.3 mmol/L (3.5-5.1); Sodium 130 mmol/L (136-145); Total Protein 7.3 g/dL (6.4-8.2); Triglycerides 49 mg/dL (<=150); VLDL CHOLESTEROL 9.8 mg/dL
== END 2025-06-01 06:17 | disposition home or self-care (01) ==
LOC: LAB 06:19
PROVIDERS: PCP Nurse Practitioner; Visit Provider Nurse Practitioner
DX: E78.2 Mixed hyperlipidemia (principal); M81.0 Age-related osteoporosis without current pathological fracture; N32.81 Overactive bladder
CPT/HCPCS: 36415; 80053; 80061; 81003; 82306; 85025